=== PATIENT | female | born 1975 | race Caucasian/White ===

== ENCOUNTER → 2018-11-01 | Outpatient (REF) ==
--- NOTE | 2018-11-01 15:23 | REP ---
Clinical: Right knee pain Technique: AP, lateral, bilateral oblique and sunrise views right knee . Findings: The osseous structures and joint spaces are intact and normal. There is no evidence for acute fracture or dislocation. No joint effusion is appreciated. Surrounding soft tissues are unremarkable. No subcutaneous emphysema or radiodense foreign body. Impression: Age-appropriate right knee examination. Electronically Signed by Maurizio Valera MD 11/01/2018 03:15 P
== END ==
LOC: M SMT 14:34
PROVIDERS: ATTEND Internal Medicine
DX: Z00.00 Encounter for general adult medical examination without abnormal findings (principal)

== ENCOUNTER 2018-12-05 14:40 | Inpatient (IN) | payer MEDICARE, MEDICAID ==
[~2018-12-05] VITALS: Ht 160 cm; Wt 68.5 kg
[2018-12-05] MEDS ORDERED: PSEU30TA88 PO (15:09)
[2018-12-05] MEDS ORDERED: GABA-1171 PO (15:09)
[2018-12-05] MEDS ORDERED: ACET-683 PO (15:09)
[2018-12-05] MEDS ORDERED: AZIT-12 PO (15:09)
[2018-12-05] MEDS ORDERED: SENN8.6T28 PO (15:09)
[2018-12-05] MEDS ORDERED: SENN1TAB8 PO (15:09)
[2018-12-05] MEDS ORDERED: SERT-138 PO (15:09)
[2018-12-05] MEDS ORDERED: VITA500C24 PO (15:09)
[2018-12-05] MEDS ORDERED: VENTAER INH (15:09)
[2018-12-05] MEDS ORDERED: PRED10PA2 PO (15:09)
[2018-12-05] MEDS ORDERED: FERR325T3 PO (15:09)
[2018-12-05] MEDS ORDERED: LEVO25TA5 PO (15:09)
[2018-12-05] MEDS ORDERED: OMEP40CA97 PO (15:09)
[2018-12-05] MEDS ORDERED: KETOROLAC 30 MG/ML VIAL (J1885) IV ONE (16:15)
[2018-12-05] MEDS ORDERED: NS 1,000 ML IV ONE (16:15)
[2018-12-05] MEDS ORDERED: ONDANSETRON 4MG/2ML VIAL (J2405) IV ONE (16:15)
--- NOTE | 2018-12-05 16:42 | REP ---
Right upper quadrant sonography: History: Pain. Comparison study: No comparison study. Findings: Scanning through the right upper quadrant of the abdomen demonstrates a normal sized, thin-walled gallbladder containing shadowing large gallstone measuring up to 3 cm in diameter. No pericholecystic fluid is seen. There is some tenderness to scanning over the gallbladder . Common bile duct is normal measuring 0.5 cm in greatest diameter. No focal liver lesion is seen. Liver size is normal. No pancreatic abnormality is observed. No right renal abnormality is seen. There is no evidence of ascites. The right kidney measures 9.7 x 5.0 x 4.1 cm. Impression: Cholelithiasis with tenderness to scanning over the gallbladder. Large gallbladder stone. Otherwise negative right upper quadrant sonography. Electronically Signed by Jamal Geronimo MD 12/05/2018 04:35 P
[2018-12-05 17:27] LABS: HEMATOCRIT 18.2 % (36.0-47.0); MEAN CORPUSCULAR HEMOGLOBIN 42.6 pg (27.0-33.0); MEAN CORPUSCULAR HGB CONC 36.3 g/dl (32.0-36.5); PLATELET COUNT, AUTOMATED 103 10^3/uL (150-450); RED BLOOD COUNT 1.55 10^6/uL (4.00-5.40)
[2018-12-05 17:50] LABS: HCG, SERUM QUALITATIVE NEGATIVE (NEGATIVE)
[2018-12-05 17:53] LABS: ALBUMIN 3.8 GM/DL (3.2-5.2); ALT/SGPT 23 U/L (12-78); BILIRUBIN,DIRECT 0.3 MG/DL (0.0-0.2); BILIRUBIN,TOTAL 3.9 MG/DL (0.2-1.0); BLOOD UREA NITROGEN 8 MG/DL (7-18); CALCIUM LEVEL 8.5 MG/DL (8.5-10.1); CARBON DIOXIDE LEVEL 23 MEQ/L (21-32); CHLORIDE LEVEL 108 MEQ/L (98-107); CREATININE FOR GFR 0.64 MG/DL (0.55-1.30); GLOMERULAR FILTRATION RATE > 60.0 (>58); GLUCOSE, FASTING 103 MG/DL (70-100); LIPASE 95 U/L (73-393); POTASSIUM SERUM 3.8 MEQ/L (3.5-5.1); SODIUM LEVEL 143 MEQ/L (136-145); TOTAL PROTEIN 6.1 GM/DL (6.4-8.2)
[2018-12-05 17:56] LABS: WHITE BLOOD COUNT 1.9 10^3/uL (4.0-10.0)
[2018-12-05 17:57] LABS: HEMOGLOBIN 6.6 g/dl (12.0-15.5)
[2018-12-05 17:59] LABS: MEAN CORPUSCULAR VOLUME 117.4 fl (80.0-96.0)
[2018-12-05 18:19] LABS: LYMPHOCYTES 40 % (16-44); NEUTROPHILS 60 % (28-66)
[2018-12-05 18:20] LABS: ANISOCYTOSIS 1+; PLATELET ESTIMATE DECREASED (NORMAL)
[2018-12-05 18:21] LABS: OVALOCYTES 1+; POIKILOCYTOSIS 1+; TEAR DROP CELLS 1+
[2018-12-05] MEDS ORDERED: ISOVUE-370 76% 100ML VIAL (Q9967) As Ordered ONE (18:21)
[2018-12-05] MEDS ORDERED: MORPHINE 4 MG/ML 1ML VIAL/SYRINGE (J2270) IV ONE (21:15)
[2018-12-05 21:48] LABS: FERRITIN 327 NG/ML (8-252); IRON (FE) 193 UG/DL (50-170); PERCENT SATURATION 94.6 % (13.2-45.0); TOTAL IRON BINDING CAPACITY 204 UG/DL (250-450)
--- NOTE | 2018-12-05 22:43 | HPEPDOC ---
[facility] Medical History & Physical Date of Admission Dec 05, 2018 Date of Service: Dec 05, 2018 Primary Care Physician: A Other Provider Douglas Metz NP Attending Physician: ELIAN BARKER MD History and Physical TIME OF SERVICE: 941PM CHIEF COMPLAINT: Back pain HISTORY OF PRESENT ILLNESS: This is a 43-year-old female who presents with complaints of lower back pain that radiates to her, her feet for few months. Associated symptoms include paresthesias affecting feet, abdominal pain, palpitations, anorexia, shortness of breath, tinnitus affecting the left ear, cough, runny nose, sore throat, 1 episode of nonbloody emesis a few days ago and unintentional 18 pound weight loss. Her family reports that she looks more pale and jaundice than usual. She denies falling, denies having urinary incontinence, denies having fevers or chills, and denies having chest pain. She reports that her menses are heavy and ended about a week ago. Per discussion with the ED provider her WBCs, hemoglobin, and platelets were all low. Due to the complaints of abdominal pain, a CT scan was done which was unremarkable. Stool occult was positive. Type and screen has been done and PRBCs have been ordered. REVIEW OF SYSTEMS: 12 point review of systems negative except as listed in HPI PAST MEDICAL/ SURGICAL HISTORY: Hypothyroidism Rheumatoid arthritis ? (Not on DMARD's report. She was sent to a pain clinic to manage this) Iron deficiency anemia. DJD affecting the lower back. Fibromyalgia. Status post . Status post tonsillectomy and adenoidectomy SOCIAL HISTORY: Does not smoke. Does not drink. Does not use alcohol and has a daughter FAMILY HISTORY: OA. Diabetes Rheumatoid arthritis. Fibromyalgia Denies family history of leukemia or cancers. ALLERGIES: Please see below. HOME MEDICATIONS: Please see below. PHYSICAL EXAMINATION: VITAL SIGNS: Please see below. GENERAL APPEARANCE: Well-nourished, well-developed, slightly anxious HEENT: Normocephalic, atraumatic. Scleral icterus. Mucous membranes are moist and pink. There is no redness or swelling or cerumen impaction affecting the left ear; the light reflex is visible CARDIOVASCULAR: Regular rate and rhythm. No murmurs, rubs or gallops LUNGS: Clear to auscultation bilaterally on room air ABDOMEN: Bowel sounds are hypoactive. Abdomen is soft and nontender on palpation MUSCULOSKELETAL: Range of motion is intact in all 4 extremities is no lower extremity edema INTEGUMENT: She does have jaundice NEUROLOGICAL: Cranial nerves II-12 are grossly intact. Speech is not dysarthric PSYCHIATRIC: Alert and oriented to person, place and time, able to understand and follow commands LABORATORY DATA: See below. IMAGING: CT of the abdomen and pelvis per discussion with the ED provider is unremarkable but final report is pending. Liver ultrasound "Impression: Cholelithiasis with tenderness to scanning over the gallbladder. Large gallbladder stone. Otherwise negative right upper quadrant sonography." ASSESSMENT: Ms. Geronimo is a 43-year-old female with a past medical history of hypothyroidism, DJD, rheumatoid arthritis ?, depression, iron deficiency anemia, and chronic lower back pain who will be admitted for evaluation of pancytopenia. PLAN: 1. Pancytopenia. Cause to be determined. Differential includes parvovirus infection, aplastic anemia, or other bone marrow disorder such as aplastic anemia, MDS leukemia CBC reviewed. Per discussion with the ED provider the stool occult was positive The patient also reports having menorrhagia Plan: Admit to PCU/ f/u on records from [facility] / neutropenic precautions and neutropenic diet pending revision of for full smear by pathologist so we can determine her absolute neutrophil count/ monitor for bleeding / continue blood transfusion/follow up retic #, iron panel, B12, folate, parovirus and serial CBCs/ GI consult for c-scope & Gyne consult / follow up with hematology in the morning to determine if she needs a bone marrow biopsy 3. Abdominal pain. Cause to be determined. Total bilirubin is elevated. Urine test is negative Liver ultrasound showed Plan: Follow-up UA/Tums for indigestion / follow up final report of CT of the abdomen and pelvis 4. Hyperbilirubinemia Possibly due to hemolysis vs Gilbert's Plan: f/u LDH and Haptoglobin / trend LFTS DVT prophylaxis with SCDs. Disposition pending clinical course Vital Signs Vital Signs Date Time Temp Pulse Resp B/P (MAP) Pulse Ox O2 Delivery O2 Flow Rate FiO2 12/05/18 22:25 97.8 71 20 109/56 (73) 100 12/05/18 22:10 Room Air Laboratory Data Labs 24H Laboratory Tests 2 12/05/18 17:14: Nucleated Red Blood Cells % (auto) 0.0, Neutrophils 60, Lymphocytes (Manual) 40, Poikilocytosis 1+, Anisocytosis 1+, Macrocytosis 2+, Tear Drop Cells 1+, Ovalocytes 1+, Platelet Estimate DECREASED, Anion Gap 12, Glomerular Filtration Rate > 60.0, Blood Urea Nitrogen 8, Creatinine 0.64, Sodium Level 143, Potassium Level 3.8, Chloride Level 108H, Carbon Dioxide Level 23, Calcium Level 8.5, Aspartate Amino Transf (AST/SGOT) 25, Alanine Aminotransferase (ALT/SGPT) 23, Alkaline Phosphatase 50, Total Bilirubin 3.9H, Direct Bilirubin 0.3H, Total Protein 6.1L, Albumin 3.8, Iron Level 193H, Total Iron Binding Capacity 204L, Transferrin % Saturation 94.6H, Ferritin 327H, Albumin/Globulin Ratio 1.65, Lipase 95, Human Chorionic Gonadotropin, Qual NEGATIVE CBC/BMP Laboratory Tests 12/05/18 17:14 Red Blood Count 1.55 L, Mean Corpuscular Volume 117.4 H, Mean Corpuscular Hemoglobin 42.6 H, Mean Corpuscular Hemoglobin Concent 36.3, Red Cell Distribution Width 17.2 H, Calcium Level 8.5, Aspartate Amino Transf (AST/SGOT) 25, Alanine Aminotransferase (ALT/SGPT) 23, Alkaline Phosphatase 50, Total Bilirubin 3.9 H, Direct Bilirubin 0.3 H, Total Protein 6.1 L, Albumin 3.8 Home Medications Scheduled Acetaminophen (Acetaminophen) 500 Mg Tablet, 500 MG PO BID Ascorbic Acid (Vitamin C) 500 Mg Capsule, 500 MG PO BID Azithromycin (Azithromycin) 250 Mg Tablet, 250 MG PO ASDIRECTED PATIENT STATES SHE HAS ONE MORE DAY ON THIS MEDICATION Ferrous Sulfate (Ferrous Sulfate) 325 Mg Tablet.dr, 325 MG PO DAILY Gabapentin (Gabapentin) 100 Mg Capsule, 100 MG PO DAILY Levothyroxine Sodium (Levothyroxine Sodium) 25 Mcg Tablet, 25 MCG PO DAILY Omeprazole (Omeprazole) 40 Mg Capsule.dr, 40 MG PO DAILY Prednisone (Prednisone) 10 Mg Tab.ds.pk, 10 MG PO ASDIRECTED PATIENT STATES SHE HAS ONE OR TWO DAYS LEFT FOR THIS MEDICAION Sertraline HCl (Sertraline HCl) 100 Mg Tablet, 100 MG PO BID Scheduled PRN Albuterol Sulfate (Ventolin Hfa) 18 Gm Hfa.aer.ad, 2 PUFF INH Q4-6HP PRN for wheezing Pseudoephedrine HCl (Pseudoephedrine HCl) 30 Mg Tablet, 30 MG PO QID PRN for CONGESTION Sennosides (Senna) 8.6 Mg Tablet, 17.2 MG PO QHS PRN for CONSTIPATION Allergies Coded Allergies: Penicillins (Verified Allergy, Intermediate, hives, 12/05/18) A-FIB/CHADSVASC A-FIB History Current/History of A-Fib/PAF?: No Current PO Anticoag Therapy: No ELIAN BARKER MD Dec 05, 2018 22:43
[2018-12-05] MEDS ORDERED: CALCIUM CARBONATE 500 MG CHEW U/D PO PRN (22:45)
[2018-12-05 23:25] VITALS: BP 131/62
[2018-12-06] MEDS: ACETAMINOPHEN TAB 650MG DOSE (2X325MG) PO PRN ×3 (00:09→13:27)
[2018-12-06 00:25] VITALS: BP 130/61
--- NOTE | 2018-12-06 00:53 | ECGEPIP ---
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
[2018-12-06] MEDS ORDERED: ALBUTEROL 90 MCG/ACT 8GM HFA INHALER INH PRN (01:15)
[2018-12-06] MEDS ORDERED: SENNA 8.6 MG TAB (SENOKOT) PO PRN (01:15)
[2018-12-06] MEDS: SERTRALINE 100 MG TAB PO SCH ×3 (01:44→21:16)
[2018-12-06] MEDS: ASCORBIC ACID 500 MG TAB PO SCH ×3 (01:45→21:16)
[2018-12-06 03:01] LABS: LDH LACTATE DEHYDROGENASE 680 U/L (84-246)
[2018-12-06 04:00] VITALS: BP 138/70
[2018-12-06] MEDS: LEVOTHYROXINE 25MCG TABLET (0.025MG) PO SCH (05:04)
[2018-12-06 06:00] LABS: HEMOGLOBIN 8.6 g/dl (12.0-15.5); MEAN CORPUSCULAR HEMOGLOBIN 39.1 pg (27.0-33.0); MEAN CORPUSCULAR HGB CONC 35.8 g/dl (32.0-36.5); MEAN CORPUSCULAR VOLUME 109.1 fl (80.0-96.0); WHITE BLOOD COUNT 2.9 10^3/uL (4.0-10.0)
[2018-12-06 06:18] LABS: ALBUMIN 3.5 GM/DL (3.2-5.2); ALT/SGPT 21 U/L (12-78); BLOOD UREA NITROGEN 8 MG/DL (7-18); CALCIUM LEVEL 8.3 MG/DL (8.5-10.1); CARBON DIOXIDE LEVEL 24 MEQ/L (21-32); CHLORIDE LEVEL 110 MEQ/L (98-107); CREATININE FOR GFR 0.72 MG/DL (0.55-1.30); GLOMERULAR FILTRATION RATE > 60.0 (>58); GLUCOSE, FASTING 76 MG/DL (70-100); MAGNESIUM LEVEL 1.8 MG/DL (1.8-2.4); POTASSIUM SERUM 3.5 MEQ/L (3.5-5.1); SODIUM LEVEL 141 MEQ/L (136-145); TOTAL PROTEIN 5.9 GM/DL (6.4-8.2)
[2018-12-06 06:40] LABS: PLATELET COUNT, AUTOMATED 91 10^3/uL (150-450)
[2018-12-06 07:45] VITALS: BP 152/88
[2018-12-06] MEDS: OMEPRAZOLE 20 MG CAP PO SCH (08:03)
[2018-12-06] MEDS ORDERED: FERROUS SULFATE 325MG TAB PO SCH (09:00)
[2018-12-06] MEDS ORDERED: GABAPENTIN 100 MG CAP PO SCH (09:00)
[2018-12-06] MEDS: MIRALAX *UNIT DOSE* 17GM PACKET PO SCH (09:00)
[2018-12-06 11:30] VITALS: BP 137/81
[2018-12-06 11:32] LABS: FOLATE 17.8 NG/ML (>5.4); VITAMIN B12 LEVEL 55 PG/ML (247-911)
[2018-12-06 12:12] LABS: FOLATE 17.2 NG/ML (>5.4)
--- NOTE | 2018-12-06 12:57 | CR ---
DATE OF CONSULTATION: 12/06/2018 HISTORY OF PRESENT ILLNESS: 43-year-old female who presents with multiple complaints including lower back pain. She has numbness and tingling affecting her feet. She has a midline right sided abdominal pain as well as shortness of breath and ringing in her ears. She had one episode of vomiting and unintentional 18 pound weight loss. Her periods have been heavy for the last three months. Bleeding is bright red and profuse. She denies passing blood clots. Before this, her periods were regular and normal. Her periods are not too painful. MEDICAL HISTORY: 1. Hypothyroidism. 2. Rheumatoid arthritis. 3. Iron deficiency anemia. 4. Degenerative disk disease in her lower back. 5. Fibromyalgia. SURGICAL HISTORY: 1. . 2. Tonsillectomy and adenoidectomy. SOCIAL HISTORY: Denies cigarettes, alcohol or drug use. She is . She has one daughter. She lives in [place]. FAMILY HISTORY: Noncontributory. ALLERGIES: - PENICILLIN MEDICATIONS: - Tylenol - Vitamin C - azithromycin - iron sulfate - gabapentin - levothyroxine - omeprazole - prednisone - Sertraline PHYSICAL EXAMINATION: Blood pressure 137/81. Pulse 61. Respiratory rate 18. Afebrile. Pale appearing female in no apparent distress. Head and Neck Exam: Normal. Lungs: Clear. Heart: Regular rate and rhythm. Abdomen: Nontender. Soft. Nondistended. No masses palpable. Extremities: Nontender. Neurologic: Cranial nerves II-XII intact. LABS: White blood count 1.9, hemoglobin 6.6 g/dl, platelets 103. CT scan shows dilated gallbladder with large gallstone, otherwise normal. ASSESSMENT: 43-year-old female with pancytopenia associated with heavy menses for the last three months. PLAN: For now, plan to observe and transfuse as necessary. The patient's blood loss may be from several sources, including menstrual bleeding. I suspect menorrhagia may be in part related to her pancytopenia. Once this is corrected, her periods may return to normal. 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 Will continue to follow during hospitalization.
--- NOTE | 2018-12-06 13:41 | REP ---
CT of the abdomen and pelvis with IV contrast, without bowel contrast: Comparisons are the outside CT of the abdomen pelvis without IV and oral contrast P and 12/05/2018 at 10:54 a.m. and of the gallbladder ultrasound of 12/05 2018 at 04:22 p.m.. The study is performed for abdominal pain. The visualized lung peter are unremarkable. The hepatic parenchyma is homogeneous and slightly less dense than the spleen. This may represent hepato steatosis. There are no hepatic masses or cysts. There is a large ring-shaped gallbladder calculus in the dependent portion of the gallbladder fundus measuring up to 2.7 cm greatest diameter. There is no gallbladder wall thickening or pericholecystic fluid that would suggest acute cholecystitis. There is no intrahepatic or extrahepatic biliary duct dilatation. The pancreas, spleen, adrenals, kidneys and abdominal aorta are unremarkable. There is no periaortic adenopathy or mass. There is no bowel distension or obstruction. There is no bowel wall thickening. The mesentery is unremarkable. There is no ascites. Pelvis: The appendix is unremarkable. The uterus and bladder are unremarkable. There is a 14 mm right adnexal follicle. The adnexa are otherwise unremarkable. There is no free pelvic fluid. There is no pelvic adenopathy. The pelvic bowel loops are unremarkable. Impression: Gallbladder calculus. No CT evidence of acute cholecystitis. No biliary duct dilatation. No ascites or adenopathy. No bowel distension or obstruction. There is a right ovarian 14 mm follicle. Otherwise, negative CT of the abdomen and pelvis. Electronically Signed by Taiwo Alcantara MD 12/06/2018 01:32 P
--- NOTE | 2018-12-06 14:00 | CR ---
DATE OF CONSULTATION: 12/05/2018 HEMATOLOGY/ONCOLOGY CONSULTATION: This is a very pleasant 43-year-old white female, who has been admitted for pancytopenia. The patient relates that for several days that she had been going to [facility] with a chief complaint of weakness, fatigue, lethargy nonspecific with occasional right upper quadrant pain. The patient had thought that it was her gallbladder but there was no postprandial fullness nor was there any early satiety that was associated with these symptoms. No fever or sweats. The patient had related that she had occasional numbness and tingling with her lower feet, abdominal pain, palpitations. She has had some anorexia, ringing in her ears and she has had about a 20 pound weight loss that she has not been explained. Her family has been advising her that she looks a little pale and that she appears to have some more jaundice. The patient's past medical history includes hypothyroidism, rheumatoid arthritis, iron deficiency, DJD, fibromyalgia. She has been 3, para 3 with one . She is status post tonsillectomy and adenoidectomy. SOCIAL HISTORY: Nonsmoker, nondrinker. Negative for alcohol. FAMILY HISTORY: She has two sisters who are in good health the exception of one who has diabetes. ALLERGIES: She has an allergy to PENICILLIN, which can cause her a rash. MEDICATIONS: - acetaminophen 500 mg p.o. b.i.d. - albuterol 2 puffs q.4-6 h p.r.n. - ascorbic acid 500 mg p.o. b.i.d. - ferrous sulfate 325 mg p.o. daily - gabapentin 100 mg p.o. daily - levothyroxine 25 mcg p.o. daily - omeprazole 40 mg p.o. daily - Senna 17 mg p.o. q.h.s. p.r.n. - sertraline hydrochlorothiazide 100 mg p.o. b.i.d. REVIEW OF SYSTEMS: She has no visual disturbances. No problems swallowing. Taste is intact. Occasional tinnitus or ringing in the ears. Neck is otherwise supple. Denies any history of any chest pain, palpitations, nausea, vomiting, diarrhea. No known history of any heartburn. She has been on levothyroxine 25 mcg p.o. daily without any problems. PHYSICAL EXAMINATION: The patient is markedly jaundiced. Her temperature is 97.6, pulse is 61, respiratory rate is 18, BP is 137/81, pulse oximetry is 100. HEENT: Sclerae is icteric. Oropharynx is clear. Neck is supple. Chest is otherwise decreased breath sounds at the bases. Cardiovascular: S1 and S2 are appreciated with no murmurs. Her abdomen is otherwise soft, nontender. No hepatosplenomegaly. Positive for abdominal striae. Extremities show no cyanosis, no clubbing or any edema. LABORATORIES: Her sodium is 141, potassium 3.5, chloride is 91. Her GFR is 60. Calcium is 8.3. Serum iron is 193, TIBC 204, iron transferrin saturation is 94, ferritin is 326. Total bilirubin is now 5, up from 3.9. Direct bili is 0.3. AST of 22, ALT of 21, alkaline phosphatase of 50. LDH is 680. Total protein is 5.9. Lipase is 95. Vitamin B12 level is 55. Folate is 17. Beta hCG is negative. On the patient's pathology, on her peripheral smear shows pancytopenia, macrocytosis, anisocytosis and mild poikilocytosis. There are no nucleated red blood cells or blasts that are seen. Review of the peripheral smear shows many multi-segmented neutrophils with up to 8 lobes in some cells Many with 5-6 lobes ( hypersegmented neutrophils ) Lymphocytes are small few atypical The patient has hepatitis A, B and C studies that are pending as well as parvovirus B19 pending. The patient's reticulocyte count is about 2.6. WBC today is 2.9, hemoglobin and hematocrit is 8.6 /24, MCV is 109, RDW is 22.1, platelets are 91,000, reticulocytes again 55 absolute count. Neutrophils are 60, lymphocytes are 40. On the patient's Malcom test, the direct Malcom test is negative, direct antibody is negative. ASSESSMENT: At this time is a patient with jaundice, low vitamin B12 and high LDH level with negative C3 MAME testing with atypical lymphs and smear. PLAN: 1. The patient has a non-autoimmune hemolytic anemia. Differential diagnosis can include vitamin B12 deficiency primarily 2. Atypical HUS. 3. A hemoglobin spectrum ankyrin deficiency, hereditary elliptocytosis. Plan is 1 give 1000 mcg of Vitamin B12 IM daily x 13 days 2. Also, the patient will need an EGD as well 3 intrinsic factor antibody. 4 Rigorous supplementation with folic acid is recommended at, at least 2 mg a day. 5. monitor the potassium level daily as a brisk response with B 12 replacement may render the patient profoundly hypokalemic. 6. Give the Vitamin B12 IM before folic acid replacement MTDD
--- NOTE | 2018-12-06 15:06 | IPNPDOC ---
Subjective Date Seen The patient was seen on 12/06/18. Subjective Chief Complaint/HPI Patient complains of right gluteal pain which goes down her back of the thigh shock like and has been having trouble walking for the past 1 month has been using a walker. Complains of chronic constipation. also complains of right upper quadrant pain in the abdomen. Objective Physical Examination General Exam: Positive: Alert, Cooperative, No Acute Distress Eye Exam: Positive: PERRLA, Conjunctiva & lids normal, EOMI, Sclera icteric ENT Exam: Positive: Atraumatic, Mucous membr. moist/pink, Pharynx Normal Neck Exam: Positive: Supple; Negative: JVD, thyromegaly Chest Exam: Positive: Clear to auscultation, Normal air movement Heart Exam: Positive: Rate Normal, Regular Rhythm, Normal S1, Normal S2; Negative: Murmurs, Rubs Telemetry: Positive: No significant arrhythmia Abdomen Exam: Positive: Normal bowel sounds, Soft, Tenderness (in the right upper quadrant); Negative: Hepatospenomegaly Extremity Exam: Positive: Normal pulses; Negative: Clubbing, Cyanosis, Edema Neuro Exam: Positive: Strength at 5/5 X4 ext, Normal Tone, Cranial Nerves 3-12 NL, Other (reflexes in all 4 limbs are hyperactive 3+) Psych Exam: Positive: Mental status NL, Mood NL, Oriented x 3 Assessment /Plan Assessment Ms. Geronimo is a 43-year-old female with a past medical history of hypothyroidism, DJD, rheumatoid arthritis ?, depression, iron deficiency anemia, and chronic lower back pain presented to the ED with worsening low back pain and multiple other complaints including paresthesias affecting feet, abdominal pain, palpitations, anorexia, shortness of breath, tinnitus affecting the left ear, cough, runny nose, sore throat, 1 episode of nonbloody emesis a few days ago and unintentional 18 pound weight loss. She was found to be pancytopenic. Stool occult was positive. She was admitted for evaluation of pancytopenia. Pancytopenia. has severe Vit B12 deficiency which could explain this Work up for parvovirus infection, and hepatitis serology ordered. CBC reviewed. Peripheral smear reviewed by pathologist says looks like Vit B12 deficiency. The patient also reports having menorrhagia this could be due to pancytopenia as per privacy compliance manager neutropenic precautions and neutropenic diet blood transfusion prn /follow up retic #, LDH daily. Intrinsic factor ordered. There is no iron deficiency. GI consulted for EGD and colonoscopy possibly later this week. IM cyanocobalamin daily for 13 days, folic acid 2 mg daily. Lumber radiculopathy will get MRI of lumber spine and right hip, consulted ortho gabapentin tid Abdominal pain. may be liver related. has gall stone single one no CT evidence of acute cholecystitis. GB ultrasound showed Cholelithiasis with tenderness to scanning over the gallbladder. Large gallbladder stone. symptomatic management. Indirect Hyperbilirubinemia with elevation of LDH, haptoglobin pending. due to vit b 12 deficiency follow up LFTS. Hypothyroid continue Synthroid DVT prophylaxis with SCDs. Disposition pending clinical course Plan/VTE VTE Prophylaxis Ordered?: Yes VS, I&O, 24H, Fishbone Vital Signs/I&O Vital Signs Date Time Temp Pulse Resp B/P (MAP) Pulse Ox O2 Delivery O2 Flow Rate FiO2 12/06/18 07:45 99.1 64 20 152/88 (109) 100 12/05/18 22:10 Room Air I&O- Last 24 Hours up to 6 AM 12/06/18 05:59 Intake Total 565 ml Output Total 0 ml Balance 565 ml Laboratory Data 24H LABS Laboratory Tests 2 12/05/18 17:14: Nucleated Red Blood Cells % (auto) 0.0, Neutrophils 60, Lymphocytes (Manual) 40, Poikilocytosis 1+, Anisocytosis 1+, Macrocytosis 2+, Tear Drop Cells 1+, Ovalocytes 1+, Platelet Estimate DECREASED, Anion Gap 12, Glomerular Filtration Rate > 60.0, Blood Urea Nitrogen 8, Creatinine 0.64, Sodium Level 143, Potassium Level 3.8, Chloride Level 108H, Carbon Dioxide Level 23, Calcium Level 8.5, Aspartate Amino Transf (AST/SGOT) 25, Alanine Aminotransferase (ALT/SGPT) 23, Lactate Dehydrogenase 680H, Alkaline Phosphatase 50, Total Bilirubin 3.9H, Direct Bilirubin 0.3H, Total Protein 6.1L, Albumin 3.8, Iron Level 193H, Total Iron Binding Capacity 204L, Transferrin % Saturation 94.6H, Ferritin 327H, Albumin/Globulin Ratio 1.65, Lipase 95, Human Chorionic Gonadotropin, Qual NEG ATIVE 12/06/18 05:26: Nucleated Red Blood Cells % (auto) 0.0, Anion Gap 7L, Glomerular Filtration Rate > 60.0, Blood Urea Nitrogen 8, Creatinine 0.72, Sodium Level 141, Potassium Level 3.5, Chloride Level 110H, Carbon Dioxide Level 24, Calcium Level 8.3L, Aspartate Amino Transf (AST/SGOT) 22, Alanine Aminotransferase (ALT/SGPT) 21, Alkaline Phosphatase 50, Total Bilirubin 5.0H, Total Protein 5.9L, Albumin 3.5, Albumin/Globulin Ratio 1.46, Differential Slide Review Report, Immature Platelet Fraction 2.5, Peripheral Blood Smear Path Consult PERIPHERAL SMEAR, Magnesium Level 1.8 CBC/BMP Laboratory Tests 12/05/18 17:14 Red Blood Count 1.55 L, Mean Corpuscular Volume 117.4 H, Mean Corpuscular Hemoglobin 42.6 H, Mean Corpuscular Hemoglobin Concent 36.3, Red Cell Distribution Width 17.2 H, Calcium Level 8.5, Aspartate Amino Transf (AST/SGOT) 25, Alanine Aminotransferase (ALT/SGPT) 23, Lactate Dehydrogenase 680 H, Alkaline Phosphatase 50, Total Bilirubin 3.9 H, Direct Bilirubin 0.3 H, Total Protein 6.1 L, Albumin 3.8 12/06/18 05:26 Red Blood Count 2.20 L, Mean Corpuscular Volume 109.1 H, Mean Corpuscular Hemoglobin 39.1 H, Mean Corpuscular Hemoglobin Concent 35.8, Red Cell Distribution Width 22.1 H, Calcium Level 8.3 L, Aspartate Amino Transf (AST/SGOT) 22, Alanine Aminotransferase (ALT/SGPT) 21, Alkaline Phosphatase 50, Total Bilirubin 5.0 H, Total Protein 5.9 L, Albumin 3.5 DWAINE SHAW MD Dec 06, 2018 08:08
[2018-12-06] MEDS: FOLIC ACID 1 MG TAB PO SCH (15:42)
[2018-12-06] MEDS: GABAPENTIN 100 MG CAP PO SCH ×2 (15:43→21:16)
[2018-12-06] MEDS: CYANOCOBALAMIN 1,000 MCG/ML VIAL (J3420) IM SCH (15:43)
--- NOTE | 2018-12-06 16:18 | CR ---
DATE OF CONSULTATION: 12/06/2018 INDICATION: Right leg sciatica. HISTORY OF PRESENT ILLNESS: Filomena Geronimo is a 43-year-old female with history of right-sided sciatica. She has done physical therapy in the past. Never had any cortisone shots. She was started prednisone about a week ago. She does state that a herniated disc in her lower back was diagnosed "with an x-ray." She has not had an MRI of her lower back before. When asked about numbness or tingling in her foot she says that she always has that and does not seem any worse than normal. Her pain is in her buttock just posterior to the greater trochanter. She denies any groin pain. For the patient's full past medical history, past surgical history, medications, allergies, social history and review of systems please see the admitting history and physical (H and P) from the hospitalist, which I personally reviewed. PHYSICAL EXAM: Reveals a female in no distress. She is alert and times three. She answers questions appropriately. She is pleasant to talk to. Cardiovascular: 2+ DP pulse, nonlabored breathing. Musculoskeletal: Patient is entirely nontender at the greater trochanter. She has no groin pain with internal or external rotation of the hip or with log roll. No hip pain with axial load. She has 5/5 strength EHL, FHL, TA and GS. Sensation to light touch L3-S1 was intact. She is significant tense to palpation over the sciatic nerve on the right leg. CAT scan the abdomen was negative. She has pancytopenia of unknown etiology. ASSESSMENT AND PLAN: Filomena is a 43-year-old female with right-sided sciatica symptoms with a possible history of a low back disk herniation. Likely has sciatic nerve irritation from multiple points, which could include a disc herniation in her lower back, as well as soft tissue compression and then in the setting of a severe vitamin B12 deficiency making all the symptoms worse. At this point, my recommendations would be to get the patient on gabapentin and I did mention to the hospitalist possibly using prednisone. They will have to discuss with the host/hostess any implications for that given her white blood cell count being significantly low. There is really no indication for any cortisone shots. I am recommending an MRI of the lumbar spine to rule out a lumbar disc herniation, muscle groin. I am recommended MRI of the right hip. Given that she is profoundly anemic and has low platelets, she could have a hematoma causing pressure on the nerve. So, we will followup on those MRIs. In the meantime, will be supportive care. She can weight-bear as tolerated. She can use cane, crutch or walker if needed. I will recommend a physical therapy consult. Any updated recommendations will follow the MRIs. She will remain under the care of the hospitalist.
[2018-12-06 17:40] LABS: BASO % 0.4 % (0.0-1.0); EOS % 0.9 % (0.0-3.0); HEMATOCRIT 23.2 % (36.0-47.0); HEMOGLOBIN 8.5 g/dl (12.0-15.5); LYMPH # 1.1 10^3/uL (1.5-5.0); MEAN CORPUSCULAR HEMOGLOBIN 39.7 pg (27.0-33.0); MEAN CORPUSCULAR HGB CONC 36.6 g/dl (32.0-36.5); MEAN CORPUSCULAR VOLUME 108.4 fl (80.0-96.0); MONO # 0.1 10^3/uL (0.0-0.8); MONO % 2.2 % (0.0-5.0); NEUTROPHILS # 1.1 10^3/uL (1.5-8.5); NEUTROPHILS % 48.1 % (36.0-66.0); PLATELET COUNT, AUTOMATED 89 10^3/uL (150-450); RED BLOOD COUNT 2.14 10^6/uL (4.00-5.40); WHITE BLOOD COUNT 2.2 10^3/uL (4.0-10.0)
--- NOTE | 2018-12-06 18:12 | CR.PDOC ---
General Date of Consultation: Dec 06, 2018 Referring Provider: DWAINE GILLIAM MD Attending Physician: JILL VARELA MD Consultation Primary physician/ hospitalist: Dr. Gilliam Reason for consult: Vitamin B12 deficiency and anemia HPI: 43-year-old female patient with fibromyalgia, hypothyroidism, low back pain, suspected rheumatoid arthritis, was admitted to the hospital for lower back pain and not feeling well. Patient was noted to have pancytopenia with vitamin B12 deficiency and GI was consulted for further evaluation. Patient is not cooperative with providing detailed history and easily gets upset when asking questions. Patient reports for the past few weeks she is "just not feeling we ll", and has visited multiple different hospital ERs. She reports being told about gallstones and she is worried about "gallstone related sepsis". In terms of GI symptoms, on specific questioning, she reports having right upper quadrant abdominal pain, [id number] in intensity, nonradiating, no aggravating and relieving factors, and not associated with food intake. She also reports having sciatica from back issues, and has been taking Tylenol and Aleve regularly for the past couple of weeks. She reports previously being told about iron deficiency anemia, and has been on iron supplements which causes her to have constipation. Patient denies any recent change in bowel habits, no blood in the bowel movements but reports her menstrual bleeding usually lasts 7 days per cycle and it has been like that for a long time. Patient denies any unintentional weight loss but has around 7-8 pound intentional weight loss. She also reports tingling and numbness in the right foot and denies any imbalance while walking. Pertinent negative GI symptoms: Patient denies nausea, vomiting, diarrhea, loss of appetite, early satiety or unintentional weight loss. No history of hematemesis, melena or hematochezia. Review of Systems: GI: as stated above CVS: No chest pain, No palpitations, No leg swelling. RS: No Shortness of breath, No Wheezing, no cough CAMPUS SECURITY OFFICER: No dizziness, No motor weakness, Hematology: No bruising, No gum bleeding, Musculoskeletal: Chronic low back pain, ambulating well. Skin: No rash : No hematuria, No burning sensation of the urine ENT: No ear discharge/ pain, No dysphagia. Eyes: No photophobia. Home medications: reviewed. Antithrombotic agents -none Medical h/o: As above. Surgical h/o: None on abdomen. Social h/o: Alcohol-denies, tobacco-denies, IVDA/ drugs-denies. Patient is not a vegan, and eats meat up to 3 times a week. Family h/o of GI cancers -none Prior Endoscopies: None Prior GI evaluation: None Exam: Vitals: reviewed General: Alert and oriented x 3, not in distress HEENT: Conjunctival pallor, no icterus. Normal oropharynx, NO cervical lymph nodes. Chest: symmetric with bilateral clear air entry, CVS: S1, S2 heard, normal, no murmurs . Abdomen: non-distended, no surgical scars, soft, non-tender, no palpable masses, normal bowel sounds heard. Rectal exam: Patient refused/ deferred. Extremities: no pedal edema, pulses palpable. CAMPUS SECURITY OFFICER: no focal motor deficits. Moves all extremities. Skin: no rash. Labs: reviewed. Slightly elevated unconjugated bilirubin. Imaging tests: reviewed Noted large gallstone, normal CBD in ultrasound abdomen and CT abdomen. Impression: - 43-year-old female patient with malaise, right upper quadrant pain, noted with severe pancytopenia and vitamin B12 deficiency, Not vegan, -- Need to rule out pernicious anemia. Other differentials include - rule out GI lymphoma. -- Mild right upper quadrant pain with gallstones but normal CBD on ultrasound and CT abdomen, with elevated unconjugated bilirubin-- likely from symptomatic gallstone disease, unlikely biliary obstruction. Unconjugated bilirubin is elevated in ineffective erythropoiesis as a result of vitamin B12 deficiency. Recommendations: - Patient educated about the test results, possible differential diagnoses and All questions answered. - Obtain intrinsic factor antibody, antiparietal cell antibodies. - Consider parenteral replacement of vitamin B12 and follow hematology recommendations for further evaluation. - Patient is recommended EGD, with biopsies to rule out H. pylori and colonoscopy for further evaluation after initial stabilization. - The procedures, indications, risks, benefits, limitations (e.g., missing a lesion), and all other alternatives were explained to the patient. Patient refused to undergo the endoscopy procedures here and wanted to schedule them in [facility]. Patient is explained the process of doing that which includes being referred from her PCP to that hospital endoscopy team and can include significant delay in scheduling the procedures. Patient verbalized understanding and still wants to schedule there. Patient is not to receptive to treatment plan options here and gets upset with explanations. - She reports after getting vitamin B 12 injections, she wants to be discharged as soon as possible. - Patient is alert and oriented and her behavior is confirmed by the nurse to be the same since hospitalization. - Elective referral to surgery for therapy for symptomatic gallstones. - Recall GI if any change in status. Plan of care discussed with patient and primary team. Patient verbalized understanding and agreed with the plan. Vital Signs/I&O Vital Signs Date Time Temp Pulse Resp B/P (MAP) Pulse Ox O2 Delivery O2 Flow Rate FiO2 12/06/18 11:30 97.6 61 18 137/81 (99) 100 12/05/18 22:10 Room Air I&O- Last 24 Hours up to 6 AM 12/06/18 05:59 Intake Total 565 ml Output Total 0 ml Balance 565 ml Laboratory Data CBC/BMP Laboratory Tests 12/06/18 05:26 Red Blood Count 2.20 L, Mean Corpuscular Volume 109.1 H, Mean Corpuscular Hemoglobin 39.1 H, Mean Corpuscular Hemoglobin Concent 35.8, Red Cell Distribution Width 22.1 H, Calcium Level 8.3 L, Aspartate Amino Transf (AST/SGOT) 22, Alanine Aminotransferase (ALT/SGPT) 21, Alkaline Phosphatase 50, Total Bilirubin 5.0 H, Total Protein 5.9 L, Albumin 3.5 12/06/18 16:38 Red Blood Count 2.14 L, Mean Corpuscular Volume 108.4 H, Mean Corpuscular Hemoglobin 39.7 H, Mean Corpuscular Hemoglobin Concent 36.6 H, Red Cell Distri bution Width 22.2 H, Neutrophils (%) (Auto) 48.1, Lymphocytes (%) (Auto) 48.0 H, Monocytes (%) (Auto) 2.2, Eosinophils (%) (Auto) 0.9, Basophils (%) (Auto) 0.4, Neutrophils # (Auto) 1.1 L, Lymphocytes # (Auto) 1.1 L, Monocytes # (Auto) 0.1, Eosinophils # (Auto) 0.0, Basophils # (Auto) 0.0 Allergies Coded Allergies: Penicillins (Verified Allergy, Intermediate, hives, 12/05/18) Home Medications Scheduled Acetaminophen (Acetaminophen) 500 Mg Tablet, 500 MG PO BID, (Reported) Ascorbic Acid (Vitamin C) 500 Mg Capsule, 500 MG PO BID, (Reported) Azithromycin (Azithromycin) 250 Mg Tablet, 250 MG PO ASDIRECTED for 5 Days, (Reported) PATIENT STATES SHE HAS ONE MORE DAY ON THIS MEDICATION Ferrous Sulfate (Ferrous Sulfate) 325 Mg Tablet.dr, 325 MG PO DAILY, (Reported) Gabapentin (Gabapentin) 100 Mg Capsule, 100 MG PO DAILY, (Reported) Levothyroxine Sodium (Levothyroxine Sodium) 25 Mcg Tablet, 25 MCG PO DAILY, (Reported) Omeprazole (Omeprazole) 40 Mg Capsule.dr, 40 MG PO DAILY, (Reported) Prednisone (Prednisone) 10 Mg Tab.ds.pk, 10 MG PO ASDIRECTED, (Reported) PATIENT STATES SHE HAS ONE OR TWO DAYS LEFT FOR THIS MEDICAION Sertraline HCl (Sertraline HCl) 100 Mg Tablet, 100 MG PO BID, (Reported) Scheduled PRN Albuterol Sulfate (Ventolin Hfa) 18 Gm Hfa.aer.ad, 2 PUFF INH Q4-6HP PRN for wheezing, (Reported) Pseudoephedrine HCl (Pseudoephedrine HCl) 30 Mg Tablet, 30 MG PO QID PRN for CONGESTION, (Reported) Sennosides (Senna) 8.6 Mg Tablet, 17.2 MG PO QHS PRN for CONSTIPATION, (Reported) JILL VARELA MD Dec 06, 2018 18:12
[2018-12-06 20:00] VITALS: BP 145/76
[2018-12-06] MEDS ORDERED: ACETAMINOPHEN TAB 650MG DOSE (2X325MG) PO PRN (21:00)
[2018-12-06] MEDS: SENOKOT S TAB PO SCH (21:16)
[2018-12-06 21:31] LABS: ACETAMINOPHEN LEVEL < 2.0 UG/ML (10.0-30.0)
[2018-12-06] MEDS: ACETAMINOPHEN 500 MG TAB PO PRN (22:24)
[2018-12-06 22:30] VITALS: BP 141/83
[2018-12-07] MEDS: LEVOTHYROXINE 25MCG TABLET (0.025MG) PO SCH (05:28)
[2018-12-07 06:00] VITALS: BP 147/85
[2018-12-07 06:01] LABS: EOS % 0.4 % (0.0-3.0); HEMATOCRIT 24.2 % (36.0-47.0); HEMOGLOBIN 8.9 g/dl (12.0-15.5); LYMPH # 1.2 10^3/uL (1.5-5.0); LYMPH % 46.1 % (24.0-44.0); MEAN CORPUSCULAR HEMOGLOBIN 38.7 pg (27.0-33.0); MEAN CORPUSCULAR HGB CONC 36.8 g/dl (32.0-36.5); MEAN CORPUSCULAR VOLUME 105.2 fl (80.0-96.0); MONO # 0.1 10^3/uL (0.0-0.8); MONO % 2.2 % (0.0-5.0); NEUTROPHILS # 1.4 10^3/uL (1.5-8.5); NEUTROPHILS % 50.9 % (36.0-66.0); PLATELET COUNT, AUTOMATED 114 10^3/uL (150-450); WHITE BLOOD COUNT 2.7 10^3/uL (4.0-10.0)
[2018-12-07 06:24] LABS: ALT/SGPT 24 U/L (12-78); BLOOD UREA NITROGEN 7 MG/DL (7-18); CALCIUM LEVEL 8.2 MG/DL (8.5-10.1); CARBON DIOXIDE LEVEL 25 MEQ/L (21-32); CHLORIDE LEVEL 109 MEQ/L (98-107); CREATININE FOR GFR 0.71 MG/DL (0.55-1.30); GLOMERULAR FILTRATION RATE > 60.0 (>58); GLUCOSE, FASTING 89 MG/DL (70-100); LDH LACTATE DEHYDROGENASE 743 U/L (84-246); POTASSIUM SERUM 3.2 MEQ/L (3.5-5.1); SODIUM LEVEL 141 MEQ/L (136-145)
[2018-12-07 06:25] LABS: ALBUMIN 3.7 GM/DL (3.2-5.2); BILIRUBIN,TOTAL 4.6 MG/DL (0.2-1.0)
--- NOTE | 2018-12-07 08:23 | IPNPDOC ---
Date Seen The patient was seen on 12/07/18. Progress Note SUBJECTIVE: Patient is a 43-year-old female seen now with a diagnosis of Vitamin B12 deficiency . " I feel like I am burning up " . Patient remains with right sided hip and lateral thigh pain . no pain in the foot no numbness in the left foot noted no numbness in her hands jaundice remains no deepening. OBJECTIVE PHYSICAL EXAMINATION: VITAL SIGNS: Please see below. GENERAL: nc at perrl eomi sclera white non icteric HEENT: sclera clear ] CARDIOVASCULAR: [s1 and S2 appreciated . RESPIRATORY: [ no SOB ]. ABDOMINAL: [no HSM EXTREMITIES: [no cce ] NEUROLOGICAL: able to flex and extend both feet and move legs bilaterally PSYCHOLOGICAL: LABORATORY DATA, IMAGING STUDIES, MICROBIOLOGY: Please see below. Laboratory Tests 12/05/18 17:14 Red Blood Count 1.55 L, Mean Corpuscular Volume 117.4 H, Mean Corpuscular Hemoglobin 42.6 H, Mean Corpuscular Hemoglobin Concent 36.3, Red Cell Distribution Width 17.2 H, Calcium Level 8.5, Aspartate Amino Transf (AST/SGOT) 25, Alanine Aminotransferase (ALT/SGPT) 23, Lactate Dehydrogenase 680 H, Alkaline Phosphatase 50, Total Bilirubin 3.9 H, Direct Bilirubin 0.3 H, Total Protein 6.1 L, Albumin 3.8 12/06/18 05:26 Red Blood Count 2.20 L, Mean Corpuscular Volume 109.1 H, Mean Corpuscular Hemoglobin 39.1 H, Mean Corpuscular Hemoglobin Concent 35.8, Red Cell Distribution Width 22.1 H, Calcium Level 8.3 L, Aspartate Amino Transf (AST/SGOT) 22, Alanine Aminotransferase (ALT/SGPT) 21, Alkaline Phosphatase 50, Total Bilirubin 5.0 H, Total Protein 5.9 L, Albumin 3.5 12/06/18 16:38 Red Blood Count 2.14 L, Mean Corpuscular Volume 108.4 H, Mean Corpuscular Hemoglobin 39.7 H, Mean Corpuscular Hemoglobin Concent 36.6 H, Red Cell Distribution Width 22.2 H, Neutrophils (%) (Auto) 48.1, Lymphocytes (%) (Auto) 48.0 H, Monocytes (%) (Auto) 2.2, Eosinophils (%) (Auto) 0.9, Basophils (%) (Auto) 0.4, Neutrophils # (Auto) 1.1 L, Lymphocytes # (Auto) 1.1 L, Monocytes # (Auto) 0.1, Eosinophils # (Auto) 0.0, Basophils # (Auto) 0.0 12/07/18 05:42 Red Blood Count 2.30 L, Mean Corpuscular Volume 105.2 H, Mean Corpuscular Hemoglobin 38.7 H, Mean Corpuscular Hemoglobin Concent 36.8 H, Red Cell Distribution Width 21.2 H, Calcium Level 8.2 L, Aspartate Amino Transf (AST/SGOT) 20, Alanine Aminotransferase (ALT/SGPT) 24, Lactate Dehydrogenase 743 H, Alkaline Phosphatase 48, Total Bilirubin 4.6 H, Total Protein 6.0 L, Albumin 3.7, Neutrophils (%) (Auto) 50.9, Lymphocytes (%) (Auto) 46.1 H, Monocytes (%) (Auto) 2.2, Eosinophils (%) (Auto) 0.4, Basophils (%) (Auto) 0.0, Neutrophils # (Auto) 1.4 L, Lymphocytes # (Auto) 1.2 L, Monocytes # (Auto) 0.1, Eosinophils # (Auto) 0.0, Basophils # (Auto) 0.0 DVT prophylaxis ordered?: ASSESSMENT AND PLAN: This is a -year-old [RACE] [GENDER] with . PROBLEMS: 1. Vitamin B12 deficiency with hemolytic anemia Sciatica epigastric pain possible PUD Plan Continue the Vitamin B12 supplementation monitor the LDH , Potassium level , retic counts and LDH As treatment progresses , the LDH should drop retic count should go up in about 3-4 days Hemoglobin should rise in @ 10 days LDH should start to normalize in 48 hours ALways give the B12 first as giving the folate first in sever B12 deficiency can cause a syndrome of check iron stores as supplementation here may need to be done as well VS, I&O, 24H, Fishbone Vital Signs/I&O Vital Signs Date Time Temp Pulse Resp B/P (MAP) Pulse Ox O2 Delivery O2 Flow Rate FiO2 12/07/18 06:00 98.6 69 17 147/85 (105) 100 12/05/18 22:10 Room Air I&O- Last 24 Hours up to 6 AM 12/07/18 05:59 Intake Total 1600 ml Output Total 350 ml Balance 1250 ml Laboratory Data 24H LABS Laboratory Tests 2 12/06/18 09:58: Urine Color YELLOW, Urine Appearance CLEAR, Urine pH 6.0, Urine Specific [place] 1.009, Urine Protein NEGATIVE, Urine Glucose (UA) NEGATIVE, Urine Ketones NEGATIVE, Urine Blood 1+H, Urine Nitrite NEGATIVE, Urine Bilirubin NEGATIVE, Urine Urobilinogen 0.2, Urine Leukocyte Esterase TRACEH, Urine WBC (Auto) 4H, Urine RBC (Auto) 2, Urine Hyaline Casts (Auto) 0, Urine Bacteria (Auto) 1+H, Urine Squamous Epithelial Cells 0, Urine Sperm (Auto) 12/06/18 11:02: 12/06/18 11:06: Reticulocyte # (auto) 55.3, Percent Reticulocyte Count 2.6H, Reticulocyte Hemoglobin Equivalent 46.2H, Vitamin B12 Level 55L, Folate 17.2, Acetaminophen Level < 2.0L 12/06/18 16:38: Immature Granulocyte % (Auto) 0.4, White Blood Count 2.2L, Red Blood Count 2.14L, Hemoglobin 8.5L, Hematocrit 23.2L, Mean Corpuscular Volume 108.4H, Mean Corpuscular Hemoglobin 39.7H, Mean Corpuscular Hemoglobin Concent 36.6H, Red Cell Distribution Width 22.2H, Platelet Count 89L, Neutrophils (%) (Auto) 48.1, Lymphocytes (%) (Auto) 48.0H, Monocytes (%) (Auto) 2.2, Eosinophils (%) (Auto) 0.9, Basophils (%) (Auto) 0.4, Neutrophils # (Auto) 1.1L, Lymphocytes # (Auto) 1.1L, Monocytes # (Auto) 0.1, Eosinophils # (Auto) 0.0, Basophils # (Auto) 0.0, Nucleated Red Blood Cells % (auto) 0.0 12/07/18 05:42: Immature Granulocyte % (Auto) 0.4, White Blood Count 2.7L, Red Blood Count 2.30L, Hemoglobin 8.9L, Hematocrit 24.2L, Mean Corpuscular Volume 105.2H, Mean Corpuscular Hemoglobin 38.7H, Mean Corpuscular Hemoglobin Concent 36.8H, Red Cell Distribution Width 21.2H, Platelet Count 114L, Neutrophils (%) (Auto) 50.9, Lymphocytes (%) (Auto) 46.1H, Monocytes (%) (Auto) 2.2, Eosinophils (%) (Auto) 0.4, Basophils (%) (Auto) 0.0, Neutrophils # (Auto) 1.4L, Lymphocytes # (Auto) 1.2L, Monocytes # (Auto) 0.1, Eosinophils # (Auto) 0.0, Basophils # (Auto) 0.0, Reticulocyte # (auto) 76.4, Nucleated Red Blood Cells % (auto) 0.0, Percent Reticulocyte Count 2.9H, Reticulocyte Hemoglobin Equivalent 45.1H, Anion Gap 7L, Glomerular Filtration Rate > 60.0, Blood Urea Nitrogen 7, Creatinine 0.71, Sodium Level 141, Potassium Level 3.2L, Chloride Level 109H, Carbon Dioxide Level 25, Calcium Level 8.2L, Aspartate Amino Transf (AST/SGOT) 20, Alanine Aminotransferase (ALT/SGPT) 24, Lactate Dehydrogenase 743H, Alkaline Phosphatase 48, Total Bilirubin 4.6H, Total Protein 6.0L, Albumin 3.7, Albumin/Globulin Ratio 1.61 CBC/BMP Laboratory Tests 12/06/18 16:38 Red Blood Count 2.14 L, Mean Corpuscular Volume 108.4 H, Mean Corpuscular Hemoglobin 39.7 H, Mean Corpuscular Hemoglobin Concent 36.6 H, Red Cell Distribution Width 22.2 H, Neutrophils (%) (Auto) 48.1, Lymphocytes (%) (Auto) 48.0 H, Monocytes (%) (Auto) 2.2, Eosinophils (%) (Auto) 0.9, Basophils (%) (Auto) 0.4, Neutrophils # (Auto) 1.1 L, Lymphocytes # (Auto) 1.1 L, Monocytes # (Auto) 0.1, Eosinophils # (Auto) 0.0, Basophils # (Auto) 0.0 12/07/18 05:42 Red Blood Count 2.30 L, Mean Corpuscular Volume 105.2 H, Mean Corpuscular Hemoglobin 38.7 H, Mean Corpuscular Hemoglobin Concent 36.8 H, Red Cell Distribution Width 21.2 H, Neutrophils (%) (Auto) 50.9, Lymphocytes (%) (Auto) 46.1 H, Monocytes (%) (Auto) 2.2, Eosinophils (%) (Auto) 0.4, Basophils (%) (Auto) 0.0, Neutrophils # (Auto) 1.4 L, Lymphocytes # (Auto) 1.2 L, Monocytes # (Auto) 0.1, Eosinophils # (Auto) 0.0, Basophils # (Auto) 0.0, Calcium Level 8.2 L, Aspartate Amino Transf (AST/SGOT) 20, Alanine Aminotransferase (ALT/SGPT) 24, Lactate Dehydrogenase 743 H, Alkaline Phosphatase 48, Total Bilirubin 4.6 H, T otal Protein 6.0 L, Albumin 3.7 Microbiology Microbiology 12/06/18 Urine Culture - Final, Complete Dona Patel MD Dec 07, 2018 08:22
[2018-12-07] MEDS ORDERED: FOLIC ACID 1 MG TAB PO SCH (09:00)
[2018-12-07 09:16] LABS: HEPATITIS B SURFACE ANTIGEN NEGATIVE (NEGATIVE)
[2018-12-07] MEDS: CYANOCOBALAMIN 1,000 MCG/ML VIAL (J3420) IM SCH (09:28)
[2018-12-07] MEDS: SENOKOT S TAB PO SCH ×2 (09:28→22:11)
[2018-12-07] MEDS: OMEPRAZOLE 20 MG CAP PO SCH (09:28)
[2018-12-07] MEDS: FOLIC ACID 1 MG TAB PO SCH (09:29)
[2018-12-07] MEDS: GABAPENTIN 100 MG CAP PO SCH ×3 (09:29→22:11)
[2018-12-07] MEDS: ASCORBIC ACID 500 MG TAB PO SCH ×2 (09:29→22:11)
[2018-12-07] MEDS: MIRALAX *UNIT DOSE* 17GM PACKET PO SCH (09:29)
[2018-12-07] MEDS: SERTRALINE 100 MG TAB PO SCH ×2 (09:29→22:11)
[2018-12-07 09:40] LABS: HEPATITIS B CORE ANTIBODY IGM NEGATIVE (NEGATIVE)
[2018-12-07] MEDS: FERROUS GLUCONATE 324 MG TAB PO SCH (09:40)
[2018-12-07 09:45] LABS: HEPATITIS A ANTIBODY IGM NEGATIVE (NEGATIVE)
--- NOTE | 2018-12-07 10:01 | REP ---
MRI lumbar spine without contrast: Repeat dictation. History: Disc herniation. Comparison is made with CT imaging from abdomen pelvis CT study December 05, 2018. Technique: Sagittal and axial T1 and T2-weighted scans are acquired in the usual fashion with and without fat saturation. Sequences include spin echo, turbo spin-echo, and STIR imaging sequences. MRI findings: There is straightening of the normal lumbar lordosis. There is a diffuse decrease in T1 marrow signal intensity question response to anemia. No bony destructive lesion is seen. The tip of the conus medullaris is normal in position and appearance at L1. There is a low T1 high T2 signal intensity cystic lesion in the subcutaneous fat of the para lumbar soft tissues to the right of midline. This measures 4.6 cm in greatest diameter and is visualized on recent CT study. This is most likely a sebaceous cyst. No other extra vertebral abnormalities observed. There is straightening of the normal lumbar lordosis. There is mild decreased disc space height and signal intensity at the L3-4 intervertebral disc. There is mild diffuse disc bulging at L3-4. This indents the ventral margin of the thecal sac. No significant central canal stenosis is seen. No foraminal narrowing is observed. At L4-5, there is mild disc narrowing and diffuse disc bulging also noted. No central canal stenosis is seen. No foraminal narrowing is observed. At L5-S1, there is mild facet hypertrophy bilaterally. No neural foraminal narrowing or central canal stenosis is seen. Impression: Mild degenerative spondylosis changes. Diffuse disc bulging L3-4 and L4-5. Mild facet hypertrophy at L5-S1. Diffusely decreased marrow signal question anemia. Otherwise negative. Electronically Signed by Jamal Geronimo MD 12/07/2018 12:57 P
[2018-12-07 10:04] LABS: HEPATITIS C VIRUS ABY INDEX 0.2 INDEX (<0.8)
--- NOTE | 2018-12-07 10:06 | REP ---
MRI RIGHT HIP: TECHNIQUE: Coronal T1, STIR through the pelvis, T2 fat sat, right hip all three planes, axial oblique proton density fat sat right hip. Visualized osseous structures demonstrate scattered diffuse reconversion to red bone marrow. This can be seen in smokers as well as medical conditions such as obesity, respiratory disorders and diabetes. There is no bone marrow edema or occult fracture. There is no evidence of avascular necrosis. There is no evidence of a labral tear. There is a normal amount of joint fluid. No paralabral cyst is seen. There is mild fluid along the greater trochanter compatible with mild greater trochanteric tendinobursitis. On the left there is edema and a tiny amount of fluid along the iliotibial tract likely representing tendonitis in this region. In the visualized pelvis mild free fluid is seen in the cul-de-sac without other significant abnormality. IMPRESSION: No bone marrow edema or occult fracture. No evidence of avascular necrosis or labral tear. There are findings suggesting mild right sided greater trochanteric tendinobursitis. On the left edema along the iliotibial tract suggests diffuse tendinitis. Mild free fluid in the pelvis. Electronically Signed by Taiwo Madrigal MD 12/07/2018 06:21 P
--- NOTE | 2018-12-07 10:17 | IPNPDOC ---
Subjective Date Seen The patient was seen on 12/07/18. Subjective Chief Complaint/HPI No new complaints this am. Says did not sleep and she was anxious about the MRI. Continues to have right buttock and hip pain. Feels she is burning. She was very anxious about the noise from the bedside monitor which she felt like was bothering her ears. Easily getting agitated and emotional having hallucinations. she seems to be confused. Trying to get out of bed saying something was vibrating in the bed and making noises and poking her. Denies any abdominal pain, no fever or chills. says has not had a bowel movement for several days. Objective Physical Examination General Exam: Positive: Alert, Cooperative, No Acute Distress Eye Exam: Positive: PERRLA, Conjunctiva & lids normal, EOMI, Sclera icteric ENT Exam: Positive: Atraumatic, Mucous membr. moist/pink, Pharynx Normal Neck Exam: Positive: Supple; Negative: JVD, thyromegaly Chest Exam: Positive: Clear to auscultation, Normal air movement Heart Exam: Positive: Rate Normal, Regular Rhythm, Normal S1, Normal S2; Negative: Murmurs, Rubs Telemetry: Positive: No significant arrhythmia Abdomen Exam: Positive: Normal bowel sounds, Soft, Tenderness (in the right upper quadrant); Negative: Hepatospenomegaly Extremity Exam: Positive: Normal pulses; Negative: Clubbing, Cyanosis, Edema Neuro Exam: Positive: Strength at 5/5 X4 ext, Normal Tone, Cranial Nerves 3-12 NL, Other (4+ DTRS in all 4 limbs, bilateral knee clonus present. ) Psych Exam: Positive: Mental status NL, Mood NL, Oriented x 3 Assessment /Plan Assessment Ms. Geronimo is a 43-year-old female with a past medical history of hypothyroidism, DJD, rheumatoid arthritis ?, depression, iron deficiency anemia, and chronic lower back pain presented to the ED with worsening low back pain and multiple other complaints including paresthesias affecting feet, abdominal pain, palpitations, anorexia, shortness of breath, tinnitus affecting the left ear, cough, runny nose, sore throat, 1 episode of nonbloody emesis a few days ago and unintentional 18 pound weight loss. She was found to be pancytopenic. Stool occult was positive. She was admitted for evaluation of pancytopenia. Pancytopenia---Vit B12 deficiency Due to Vit B12 deficiency hepatitis panel negative. Work up for parvovirus infection,flow cytometry ordered No iron deficiency at present will repeat in 3 days. blood transfusion prn /follow up retic #, LDH daily. Intrinsic factor ordered. GI consulted for EGD and colonoscopy pateint refused at this time wants to do it as an outpatient. IM cyanocobalamin daily for 13 days, folic acid 2 mg daily. Confusion/ agitation/ irritability ? 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 this could be due to pancytopenia as per haul cane brakeman Once pancytopenia improves this should also resolve. to follow up in clinic Lumber radiculopathy/ sciatica with increased DTRs MRI of lumber spine and right hip done report pending appreciate ortho input gabapentin tid pt/ot Abdominal pain. resolved. has gall stone single one no CT evidence of acute cholecystitis. GB ultrasound showed Cholelithiasis with tenderness to scanning over the gallbladder. Large gallbladder stone. symptomatic management. Indirect Hyperbilirubinemia with elevation of LDH, haptoglobin pending. due to vit b 12 deficiency follow up LFTS. Hypothyroid continue Synthroid DVT prophylaxis with SCDs. Disposition pending clinical course Plan/VTE VTE Prophylaxis Ordered?: Yes VS, I&O, 24H, Fishbone Vital Signs/I&O Vital Signs Date Time Temp Pulse Resp B/P (MAP) Pulse Ox O2 Delivery O2 Flow Rate FiO2 12/07/18 06:00 98.6 69 17 147/85 (105) 100 12/05/18 22:10 Room Air I&O- Last 24 Hours up to 6 AM 12/07/18 06:00 Intake Total 1000 ml Output Total 350 ml Balance 650 ml Laboratory Data 24H LABS Laboratory Tests 2 12/06/18 11:02: 12/06/18 11:06: Reticulocyte # (auto) 55.3, Percent Reticulocyte Count 2.6H, Reticulocyte Hemoglobin Equivalent 46.2H, Vitamin B12 Level 55L, Folate 17.2, Acetaminophen Level < 2.0L, Hepatitis A IgM Antibody NEGATIVE, Hepatitis B Surface Antigen NEGATIVE, Hepatitis B Core IgM Antibody NEGATIVE, Hepatitis C Antibody Index 0.2 12/06/18 16:38: Immature Granulocyte % (Auto) 0.4, White Blood Count 2.2L, Red Blood Count 2.14L, Hemoglobin 8.5L, Hematocrit 23.2L, Mean Corpuscular Volume 108.4H, Mean Corpuscular Hemoglobin 39.7H, Mean Corpuscular Hemoglobin Concent 36.6H, Red Cell Distribution Width 22.2H, Platelet Count 89L, Neutrophils (%) (Auto) 48.1, Lymphocytes (%) (Auto) 48.0H, Monocytes (%) (Auto) 2.2, Eosinophils (%) (Auto) 0.9, Basophils (%) (Auto) 0.4, Neutrophils # (Auto) 1.1L, Lymphocytes # (Auto) 1.1L, Monocytes # (Auto) 0.1, Eosinophils # (Auto) 0.0, Basophils # (Auto) 0.0, Nucleated Red Blood Cells % (auto) 0.0 12/07/18 05:42: Reticulocyte # (auto) 76.4, Percent Reticulocyte Count 2.9H, Reticulocyte Hemoglobin Equivalent 45.1H, Immature Granulocyte % (Auto) 0.4, White Blood Count 2.7L, Red Blood Count 2.30L, Hemoglobin 8.9L, Hematocrit 24.2L, Mean Corpuscular Volume 105.2H, Mean Corpuscular Hemoglobin 38.7H, Mean Corpuscular Hemoglobin Concent 36.8H, Red Cell Distribution Width 21.2H, Platelet Count 114L, Neutrophils (%) (Auto) 50.9, Lymphocytes (%) (Auto) 46.1H, Monocytes (%) (Auto) 2.2, Eosinophils (%) (Auto) 0.4, Basophils (%) (Auto) 0.0, Neutrophils # (Auto) 1.4L, Lymphocytes # (Auto) 1.2L, Monocytes # (Auto) 0.1, Eosinophils # (Auto) 0.0, Basophils # (Auto) 0.0, Nucleated Red Blood Cells % (auto) 0.0, Anion Gap 7L, Glomerular Filtration Rate > 60.0, Blood Urea Nitrogen 7, Creatinine 0.71, Sodium Level 141, Potassium Level 3.2L, Chloride Level 109H, Carbon Dioxide Level 25, Calcium Level 8.2L, Aspartate Amino Transf (AST/SGOT) 20, Alanine Aminotransferase (ALT/SGPT) 24, Lactate Dehydrogenase 743H, Alkaline Phosphatase 48, Total Bilirubin 4.6H, Total Protein 6.0L, Albumin 3.7, Albumin/Globulin Ratio 1.61 CBC/BMP Laboratory Tests 12/06/18 16:38 Red Blood Count 2.14 L, Mean Corpuscular Volume 108.4 H, Mean Corpuscular Hemoglobin 39.7 H, Mean Corpuscular Hemoglobin Concent 36.6 H, Red Cell Distribution Width 22.2 H, Neutrophils (%) (Auto) 48.1, Lymphocytes (%) (Auto) 4 8.0 H, Monocytes (%) (Auto) 2.2, Eosinophils (%) (Auto) 0.9, Basophils (%) (Auto) 0.4, Neutrophils # (Auto) 1.1 L, Lymphocytes # (Auto) 1.1 L, Monocytes # (Auto) 0.1, Eosinophils # (Auto) 0.0, Basophils # (Auto) 0.0 12/07/18 05:42 Red Blood Count 2.30 L, Mean Corpuscular Volume 105.2 H, Mean Corpuscular Hemoglobin 38.7 H, Mean Corpuscular Hemoglobin Concent 36.8 H, Red Cell Distribution Width 21.2 H, Neutrophils (%) (Auto) 50.9, Lymphocytes (%) (Auto) 46.1 H, Monocytes (%) (Auto) 2.2, Eosinophils (%) (Auto) 0.4, Basophils (%) (Auto) 0.0, Neutrophils # (Auto) 1.4 L, Lymphocytes # (Auto) 1.2 L, Monocytes # (Auto) 0.1, Eosinophils # (Auto) 0.0, Basophils # (Auto) 0.0, Calcium Level 8.2 L, Aspartate Amino Transf (AST/SGOT) 20, Alanine Aminotransferase (ALT/SGPT) 24, Lactate Dehydrogenase 743 H, Alkaline Phosphatase 48, Total Bilirubin 4.6 H, Total Protein 6.0 L, Albumin 3.7 Microbiology Microbiology 12/06/18 Urine Culture - Final, Complete DWAINE SHAW MD Dec 07, 2018 10:17
[2018-12-07 14:00] VITALS: BP 137/94
[2018-12-07] MEDS ORDERED: HALOPERIDOL 5 MG/ML VIAL (J1630) IV PRN (18:45)
[2018-12-07 22:00] VITALS: BP 119/80
[2018-12-07] MEDS: ACETAMINOPHEN 500 MG TAB PO PRN (22:11)
[2018-12-08] MEDS: HALOPERIDOL 5 MG/ML VIAL (J1630) IV PRN ×2 (04:03→12:05)
[2018-12-08 05:32] LABS: EOS % 1.3 % (0.0-3.0); HEMATOCRIT 21.9 % (36.0-47.0); HEMOGLOBIN 8.1 g/dl (12.0-15.5); LYMPH # 1.1 10^3/uL (1.5-5.0); LYMPH % 35.5 % (24.0-44.0); MEAN CORPUSCULAR HEMOGLOBIN 38.9 pg (27.0-33.0); MEAN CORPUSCULAR VOLUME 105.3 fl (80.0-96.0); MONO # 0.2 10^3/uL (0.0-0.8); MONO % 6.3 % (0.0-5.0); NEUTROPHILS # 1.8 10^3/uL (1.5-8.5); NEUTROPHILS % 55.6 % (36.0-66.0); PLATELET COUNT, AUTOMATED 101 10^3/uL (150-450); RED BLOOD COUNT 2.08 10^6/uL (4.00-5.40); WHITE BLOOD COUNT 3.2 10^3/uL (4.0-10.0)
[2018-12-08] MEDS: LEVOTHYROXINE 25MCG TABLET (0.025MG) PO SCH (05:37)
[2018-12-08 05:49] LABS: ALBUMIN 3.4 GM/DL (3.2-5.2); ALT/SGPT 20 U/L (12-78); BILIRUBIN,TOTAL 3.7 MG/DL (0.2-1.0); BLOOD UREA NITROGEN 8 MG/DL (7-18); CALCIUM LEVEL 8.1 MG/DL (8.5-10.1); CARBON DIOXIDE LEVEL 24 MEQ/L (21-32); CHLORIDE LEVEL 109 MEQ/L (98-107); CREATININE FOR GFR 0.63 MG/DL (0.55-1.30); GLOMERULAR FILTRATION RATE > 60.0 (>58); GLUCOSE, FASTING 94 MG/DL (70-100); LDH LACTATE DEHYDROGENASE 662 U/L (84-246); POTASSIUM SERUM 3.1 MEQ/L (3.5-5.1); SODIUM LEVEL 141 MEQ/L (136-145); TOTAL PROTEIN 5.3 GM/DL (6.4-8.2)
[2018-12-08 06:00] VITALS: BP 131/76
[2018-12-08 08:00] VITALS: BP 124/84
[2018-12-08 08:02] LABS: TOTAL 25(OH) VITAMIN D 28.5 NG/ML (30.0-100.0)
[2018-12-08] MEDS: FERROUS GLUCONATE 324 MG TAB PO SCH (09:14)
[2018-12-08] MEDS: CYANOCOBALAMIN 1,000 MCG/ML VIAL (J3420) IM SCH (09:14)
[2018-12-08] MEDS: GABAPENTIN 100 MG CAP PO SCH ×3 (09:15→20:33)
[2018-12-08] MEDS: SERTRALINE HCL 50 MG TAB PO SCH ×2 (09:15→20:33)
[2018-12-08] MEDS: ASCORBIC ACID 500 MG TAB PO SCH ×2 (09:15→20:34)
[2018-12-08] MEDS: MIRALAX *UNIT DOSE* 17GM PACKET PO SCH (09:15)
[2018-12-08] MEDS: SENOKOT S TAB PO SCH ×2 (09:15→20:34)
--- NOTE | 2018-12-08 10:26 | IPNPDOC ---
Subjective Date Seen The patient was seen on 12/08/18. Subjective Chief Complaint/HPI Calmer this morning, does not seem to be hallucinating now. Does not apper to be paranoid at this time however remains irritable and easily agitated. Responded well to haloperidol . I talked with yesterday. knows her for 3 years only and she has always been anxious and does not like people much but over the past 6 months ot 1 year she has been having more frequent episodes of agitation and paranoia. All her medications has been started within the last 1 to 2 months when she started seeing a PMD in [facility] and started having trouble to walking. No fever ro chills, no chest pain or SOB. Has not had a bowel movement yet. No abdominal pain nausea or vomiting. Objective Physical Examination General Exam: Positive: Alert, Cooperative, No Acute Distress Eye Exam: Positive: PERRLA, Conjunctiva & lids normal, EOMI, Sclera icteric ENT Exam: Positive: Atraumatic, Mucous membr. moist/pink, Pharynx Normal Neck Exam: Positive: Supple; Negative: JVD, thyromegaly Chest Exam: Positive: Clear to auscultation, Normal air movement Heart Exam: Positive: Rate Normal, Regular Rhythm, Normal S1, Normal S2; Negative: Murmurs, Rubs Telemetry: Positive: No significant arrhythmia Abdomen Exam: Positive: Normal bowel sounds, Soft, Tenderness (in the right upper quadrant); Negative: Hepatospenomegaly Extremity Exam: Positive: Normal pulses; Negative: Clubbing, Cyanosis, Edema Neuro Exam: Positive: Strength at 5/5 X4 ext, Normal Tone, Cranial Nerves 3-12 NL, Other (3+ DTRS in lower extremities, 2+ in upper extremities , no clonus) Psych Exam: Positive: Anxiety, Oriented x 3, Other (irritable with episodes of paranoia and hallucination) Assessment /Plan Assessment Ms. Geronimo is a 43-year-old female with a past medical history of hypothyroidism, DJD, rheumatoid arthritis ?, depression, iron deficiency anemia, and chronic lower back pain presented to the ED with worsening low back pain and multiple other complaints including paresthesias affecting feet, abdominal pain, palpitations, anorexia, shortness of breath, tinnitus affecting the left ear, cough, runny nose, sore throat, 1 episode of nonbloody emesis a few days ago and unintentional 18 pound weight loss. She was found to be pancytopenic. Stool occult was positive. She was admitted for evaluation of pancytopenia. Confusion/ agitation/ irritability/paranoia/hallucination most possibly due to Neuropsychiatric manifestations of Vit B 12 deficiency will also check thiamine level, copper level symptomatic management haldol and benadryl. Frequent reorientation, reassurance will get EEG and mri brain. Neuro consult Pancytopenia---Vit B12 deficiency Due to Vit B12 deficiency hepatitis panel negative. Work up for parvovirus infection,flow cytometry ordered No iron deficiency at present will repeat in 3 days. blood transfusion prn /follow up retic #, LDH daily. Intrinsic factor ordered. GI consulted for EGD and colonoscopy pateint refused at this time wants to do it as an outpatient. IM cyanocobalamin daily for 13 days, folic acid 2 mg daily. Menorrhagia Appreciate MIRROR FABRICATION SUPERVISOR input. this could be due to pancytopenia as per electrical instrument repairer Once pancytopenia improves this should also resolve. to follow up in clinic Myelopathy Due to Vitamin B12 deficiency. Lumber radiculopathy/ sciatica with increased DTRs MRI of lumber spine and right hip negative for disc prolapse appreciate ortho input gabapentin tid pt/ot Abdominal pain. resolved. has gall stone single one no CT evidence of acute cholecystitis. GB ultrasound showed Cholelithiasis with tenderness to scanning over the gallbladder. Large gallbladder stone. symptomatic management. Hemolytic anemia Indirect Hyperbilirubinemia with elevation of LDH, haptoglobin very low due to vit b 12 deficiency follow up LFTS. Hypothyroid continue Synthroid DVT prophylaxis with SCDs. Disposition pending clinical course Plan/VTE VTE Prophylaxis Ordered?: Yes VS, I&O, 24H, Fishbone Vital Signs/I&O Vital Signs Date Time Temp Pulse Resp B/P (MAP) Pulse Ox O2 Delivery O2 Flow Rate FiO2 12/08/18 06:00 98.1 81 18 131/76 (94) 100 12/05/18 22:10 Room Air I&O- Last 24 Hours up to 6 AM 12/08/18 05:59 Intake Total 805 ml Output Total 0 ml Balance 805 ml Laboratory Data 24H LABS Laboratory Tests 2 12/08/18 05:13: Immature Granulocyte % (Auto) 1.3, White Blood Count 3.2L, Red Blood Count 2.08L, Hemoglobin 8.1L, Hematocrit 21.9L, Mean Corpuscular Volume 105.3H, Mean Corpuscular Hemoglobin 38.9H, Mean Corpuscular Hemoglobin Concent 37.0H, Red Cell Distribution Width 20.3H, Platelet Count 101L, Neutrophils (%) (Auto) 55.6, Lymphocytes (%) (Auto) 35.5, Monocytes (%) (Auto) 6.3H, Eosinophils (%) (Auto) 1.3, Basophils (%) (Auto) 0.0, Neutrophils # (Auto) 1.8, Lymphocytes # (Auto) 1.1L, Monocytes # (Auto) 0.2, Eosinophils # (Auto) 0.0, Basophils # (Auto) 0.0, Reticulocyte # (auto) 44.9, Nucleated Red Blood Cells % (auto) 0.6H, Percent Reticulocyte Count 2.2H, Reticulocyte Hemoglobin Equivalent 46.0H, Anion Gap 8, Glomerular Filtration Rate > 60.0, Blood Urea Nitrogen 8, Creatinine 0.63, Sod ium Level 141, Potassium Level 3.1L, Chloride Level 109H, Carbon Dioxide Level 24, Calcium Level 8.1L, Aspartate Amino Transf (AST/SGOT) 19, Alanine Aminotransferase (ALT/SGPT) 20, Lactate Dehydrogenase 662H, Alkaline Phosphatase 45, Total Bilirubin 3.7H, Total Protein 5.3L, Albumin 3.4, Albumin/Globulin Ratio 1.79, 25-Hydroxy Vitamin D Total 28.5L CBC/BMP Laboratory Tests 12/08/18 05:13 Red Blood Count 2.08 L, Mean Corpuscular Volume 105.3 H, Mean Corpuscular Hemoglobin 38.9 H, Mean Corpuscular Hemoglobin Concent 37.0 H, Red Cell Distribution Width 20.3 H, Neutrophils (%) (Auto) 55.6, Lymphocytes (%) (Auto) 35.5, Monocytes (%) (Auto) 6.3 H, Eosinophils (%) (Auto) 1.3, Basophils (%) (Auto) 0.0, Neutrophils # (Auto) 1.8, Lymphocytes # (Auto) 1.1 L, Monocytes # (Auto) 0.2, Eosinophils # (Auto) 0.0, Basophils # (Auto) 0.0, Calcium Level 8.1 L, Aspartate Amino Transf (AST/SGOT) 19, Alanine Aminotransferase (ALT/SGPT) 20, Lactate Dehydrogenase 662 H, Alkaline Phosphatase 45, Total Bilirubin 3.7 H, Total Protein 5.3 L, Albumin 3.4 Microbiology Microbiology 12/06/18 Urine Culture - Final, Complete DWAINE SHAW MD Dec 08, 2018 10:26
[2018-12-08] MEDS: POTASSIUM CHLORIDE 10 MEQ SR TABLET PO SCH (10:57)
[2018-12-08] MEDS: FOLIC ACID 1 MG TAB PO SCH (11:08)
[2018-12-08] MEDS ORDERED: POTA20TA6 PO (13:35)
[2018-12-08 14:00] VITALS: BP 150/99
--- NOTE | 2018-12-08 14:10 | REP ---
MRI brain without contrast: History: Encephalopathy. . Comparison study: No comparison brain imaging. Technique: Axial and sagittal imaging planes are utilized for T1 and T2-weighted scans. Sequences include spin-echo, fast spin echo, FLAIR, and diffusion weighted sequences. MRI findings: No bony calvarial lesion is seen. Craniocervical junction and upper cervical cord are normal in appearance. There is no MR evidence of significant paranasal sinus disease. No intraorbital abnormality is seen. The lateral, third, and fourth ventricles are normal in size and position. Madrigal-white differentiation pattern is intact above and below the tentorium. There is no evidence of intracranial hemorrhage. No mass, infarction, extra-axial fluid collection or midline shift is seen. No abnormal white matter lesion is seen. Impression: Negative noncontrast brain MRI study. Electronically Signed by Jamal Geronimo MD 12/08/2018 02:02 P
[2018-12-08 22:00] VITALS: BP 137/87
[2018-12-08] MEDS: diphenhydrAMINE INJ 50MG/ML VIAL (J1200) IV PRN (22:07)
[2018-12-09 05:51] LABS: BASO % 0.2 % (0.0-1.0); HEMATOCRIT 25.5 % (36.0-47.0); HEMOGLOBIN 9.2 g/dl (12.0-15.5); LYMPH # 1.7 10^3/uL (1.5-5.0); LYMPH % 39.8 % (24.0-44.0); MEAN CORPUSCULAR HEMOGLOBIN 38.5 pg (27.0-33.0); MEAN CORPUSCULAR HGB CONC 36.1 g/dl (32.0-36.5); MEAN CORPUSCULAR VOLUME 106.7 fl (80.0-96.0); MONO # 0.4 10^3/uL (0.0-0.8); MONO % 9.8 % (0.0-5.0); NEUTROPHILS # 1.9 10^3/uL (1.5-8.5); NEUTROPHILS % 46.1 % (36.0-66.0); PLATELET COUNT, AUTOMATED 126 10^3/uL (150-450); RED BLOOD COUNT 2.39 10^6/uL (4.00-5.40); WHITE BLOOD COUNT 4.2 10^3/uL (4.0-10.0)
[2018-12-09 06:00] VITALS: BP 138/88
[2018-12-09 06:16] LABS: ALBUMIN 3.9 GM/DL (3.2-5.2); ALT/SGPT 19 U/L (12-78); BILIRUBIN,TOTAL 3.5 MG/DL (0.2-1.0); BLOOD UREA NITROGEN 5 MG/DL (7-18); CALCIUM LEVEL 8.9 MG/DL (8.5-10.1); CARBON DIOXIDE LEVEL 25 MEQ/L (21-32); CHLORIDE LEVEL 108 MEQ/L (98-107); FERRITIN 430 NG/ML (8-252); GLOMERULAR FILTRATION RATE > 60.0 (>58); GLUCOSE, FASTING 85 MG/DL (70-100); IRON (FE) 62 UG/DL (50-170); LDH LACTATE DEHYDROGENASE 717 U/L (84-246); PERCENT SATURATION 28.3 % (13.2-45.0); POTASSIUM SERUM 3.5 MEQ/L (3.5-5.1); SODIUM LEVEL 143 MEQ/L (136-145); TOTAL IRON BINDING CAPACITY 219 UG/DL (250-450); TOTAL PROTEIN 6.6 GM/DL (6.4-8.2)
[2018-12-09] MEDS: LEVOTHYROXINE 25MCG TABLET (0.025MG) PO SCH (06:16)
[2018-12-09] MEDS: CYANOCOBALAMIN 1,000 MCG/ML VIAL (J3420) IM SCH (08:51)
[2018-12-09] MEDS: ASCORBIC ACID 500 MG TAB PO SCH ×2 (08:52→19:59)
[2018-12-09] MEDS: FERROUS GLUCONATE 324 MG TAB PO SCH (08:52)
[2018-12-09] MEDS: SENOKOT S TAB PO SCH ×2 (08:52→19:59)
[2018-12-09] MEDS: POTASSIUM CHLORIDE 10 MEQ SR TABLET PO SCH (08:52)
[2018-12-09] MEDS: MIRALAX *UNIT DOSE* 17GM PACKET PO SCH (08:52)
[2018-12-09] MEDS: SERTRALINE HCL 50 MG TAB PO SCH ×2 (08:52→19:59)
[2018-12-09] MEDS: GABAPENTIN 100 MG CAP PO SCH ×3 (08:52→19:59)
--- NOTE | 2018-12-09 09:47 | CR ---
DATE OF CONSULTATION: 12/09/2018 REFERRING PROVIDER: Dr. Johana Gilliam REASON FOR CONSULTATION: Gait ataxia, altered mental status. Filomena Geronimo is a 43-year-old female who has been having longstanding history of low back pain with sciatica affecting her right leg associated with paresthesias of the feet who presented with symptoms of palpitations, abdominal pain, anorexia, shortness of breath, tinnitus in the left ear, emesis, 18 pounds weight loss. The patient has been paranoid, agitated and confused during the initial hospital stay, this is improved with Haldol. MRI of the brain did not reveal any acute intracranial pathology. The patient had a slight evidence of UTI. The patient was noted to have pancytopenia. The patient has a history of fibromyalgia. She is noted by in lab work to have severe B12 deficiency with the level of 55. She has been receiving B12 intramuscular injections 1000 mcg daily. The patient had blood work sent off for her for an to parietal cell antibody which was quite high confirming the patient has pernicious anemia. The patient is an little bit better. She is quite hyperreflexic in all four extremities and is quite ataxia. She states that all of the symptoms started 1 month ago. She was started on gabapentin on month ago and states that the symptoms started soon after starting gabapentin. Gabapentin was currently 100 mg three times a day. Next the patient was seen by Hematology/Oncology for her B12 efficiency with hemolytic anemia. REVIEW OF SYSTEMS: 14-point review of systems obtained is negative except as per HPI. PAST MEDICAL HISTORY: Hypothyroidism, iron-deficiency anemia, degenerative disk disease, low back fibromyalgia of sciatica the right leg. PAST SURGICAL HISTORY: Tonsillectomy, adenoidectomy and . SOCIAL HISTORY: The patient denies use of tobacco, alcohol or illicit drugs. FAMILY HISTORY: Noncontributory. ALLERGIES: Penicillin. MEDICATIONS: vitamin C 500 mg by mouth twice a day, ferrous sulfate 325 mg daily by mouth daily, gabapentin 100 mg by mouth daily, Levothyroxine 24 mcg by mouth daily, omeprazole 40 mg daily, prednisone 10 mg patient daily, sertraline 100 mg by mouth twice a day, acetaminophen 5 mg by mouth twice a day, albuterol as needed, pseudoephedrine as needed, senna as needed. PHYSICAL EXAMINATION: Blood pressure is 150/99, pulse rate 75, respiratory rate is 16, temperature is 98.5 degrees Fahrenheit oxygenation is 99% on room air. The patient is awake, alert, oriented person, place and time. Speech language comprehension, repetition are intact. Pupils 3 mm round, reactive to light. Extraocular movements are intact in all directions. Sensation V1, V2-V3 is intact to light touch. No facial asymmetry activation palate elevates symmetrically. Tongue is midline. There is no pronator drift. Strength is 5/5 including bilateral deltoids, biceps, triceps, the patient has weakness in iliopsoas grade 4/5 bilaterally, quadriceps 5/5 tibialis anterior 4+/5. Romberg testing is positive. The patient is extremely ataxic when trying to stand and walk. She cannot walk without a walker. Sensory is intact to light touch in all four extremities. Deep tendon reflexes are fours with spreading and clonus positive Babinski signs bilaterally. Suspect posterior lateral, involvement of the spinal cord next ASSESSMENT: 1. Severe B12 deficiency, suggesting subacute combined degeneration. PLAN: 1. B12 deficiency secondary to pernicious anemia with high intraparietal cell antibodies. 2. Rule out any cord etiology involving cervical thoracic spinal cord next agitation, confusion, delirium secondary to underlying metabolic encephalopathy. PLAN: 1. Continue B12 1000 mcg supplementation daily. Recheck B12 level checked vitamin B1 level agree with checking copper level for copper deficiency. Obtain MRI cervical thoracic spine without contrast. Case discussed with Dr. Gilliam. 2. Patient can followup in the [facility] neurology office as an outpatient for outpatient EMG nerve conduction studies in the future.
[2018-12-09] MEDS: FOLIC ACID 1 MG TAB PO SCH (12:07)
[2018-12-09 14:00] VITALS: BP 144/98
--- NOTE | 2018-12-09 15:07 | IPNPDOC ---
Subjective Date Seen The patient was seen on 12/09/18. Subjective Chief Complaint/HPI Very paranoid this morning. Has locked herself up twice this morning thinking doctors and nurses are coming to take her away. She refuses to leave her room. On opening the bathroom door she was found to be sitting on the floor and feet bent tot he side. She denied falling said just sat down on the floor. She refused to to helped up from the floor, refused to come out of the bathroom. would not let anyone touch her. She called 911 twice from the bathroom. After reassurances by different staff members specially one whom she has known for a ling time and is friends with she agreed to come out of the bathroom and allowed me to do a physical examination. This morning she had urinary retention. straight cath produced 1000 ml. Objective Physical Examination General Exam: Positive: Alert, No Acute Distress Eye Exam: Positive: PERRLA, Conjunctiva & lids normal, EOMI, Sclera icteric ENT Exam: Positive: Atraumatic, Mucous membr. moist/pink, Pharynx Normal Neck Exam: Positive: Supple; Negative: JVD, thyromegaly Chest Exam: Positive: Clear to auscultation, Normal air movement Heart Exam: Positive: Rate Normal, Regular Rhythm, Normal S1, Normal S2; Negative: Murmurs, Rubs Telemetry: Positive: No significant arrhythmia Abdomen Exam: Positive: Normal bowel sounds, Soft, Tenderness (in the right upper quadrant); Negative: Hepatospenomegaly Extremity Exam: Positive: Normal pulses; Negative: Clubbing, Cyanosis, Edema Neuro Exam: Positive: Strength at 5/5 X4 ext, Normal Tone, Cranial Nerves 3-12 NL, Other (3+ DTRS in lower extremities, 2+ in upper extremities , no clonus) Psych Exam: Positive: Anxiety, Other (irritable with paranoia ) Assessment /Plan Assessment Ms. Geronimo is a 43-year-old female with a past medical history of hypothyroidism, DJD, rheumatoid arthritis ?, depression, iron deficiency anemia, and chronic lower back pain presented to the ED with worsening low back pain and multiple other complaints including paresthesias affecting feet, abdominal pain, palpitations, anorexia, shortness of breath, tinnitus affecting the left ear, cough, runny nose, sore throat, 1 episode of non bloody emesis a few days ago and unintentional 18 pound weight loss. She was found to be pancytopenic. Stool occult was positive. She was admitted for evaluation of pancytopenia. Confusion/ agitation/ irritability/paranoia/hallucination most possibly due to Neuropsychiatric manifestations of Vit B 12 deficiency thiamine level, copper level in progress. symptomatic management haldol and benadryl. Frequent reorientation, reassurance will get EEG and mri brain. Neuro consult sitter. Vitamin B12 deficiency due to pernicious anemia has high intrinsic factor antibodies. Cyanocobalamin 1000 mcg daily. Myelopathy--Subacute combined degeneration of spinal cord. Due to Vitamin B12 deficiency. appreciate Neuroconsult MRI of lumber spine and right hip negative for disc prolapse appreciate ortho input gabapentin tid pt/ot Acute urinary retention probably due to myelopathy. will get bladder scan prn and if greater than [address] a pisano. Pancytopenia---Vit B12 deficiency hepatitis panel negative. Work up for parvovirus infection,flow cytometry in progress. No iron deficiency at present will repeat in 3 days. blood transfusion prn /follow up retic #, LDH daily. Intrinsic factor ordered. GI consulted for EGD and colonoscopy pateint refused at this time wants to do it as an outpatient. IM cyanocobalamin daily for 13 days, folic acid 2 mg daily. Menorrhagia Appreciate MECHANIC AND WELDER input. this could be due to pancytopenia as per store lead Once pancytopenia improves this should also resolve. to follow up in clinic Abdominal pain. resolved. has gall stone single one no CT evidence of acute cholecystitis. GB ultrasound showed Cholelithiasis with tenderness to scanning over the gallbladder. Large gallbladder stone. symptomatic management. Hemolytic anemia Indirect Hyperbilirubinemia with elevation of LDH, haptoglobin very low due to vit b 12 deficiency Hypothyroid continue Synthroid DVT prophylaxis with SCDs. Disposition pending clinical course Plan/VTE VTE Prophylaxis Ordered?: Yes VS, I&O, 24H, Fishbone Vital Signs/I&O Vital Signs Date Time Temp Pulse Resp B/P (MAP) Pulse Ox O2 Delivery O2 Flow Rate FiO2 12/09/18 06:00 99.0 63 18 138/88 (105) 100 12/05/18 22:10 Room Air I&O- Last 24 Hours up to 6 AM 12/09/18 06:00 Intake Total 960 ml Output Total 0 ml Balance 960 ml Laboratory Data 24H LABS Laboratory Tests 2 12/09/18 05:04: Immature Granulocyte % (Auto) 3.1H, White Blood Count 4.2, Red Blood Count 2.39L, Hemoglobin 9.2L, Hematocrit 25.5L, Mean Corpuscular Volume 106.7H, Mean Corpuscular Hemoglobin 38.5H, Mean Corpuscular Hemoglobin Concent 36.1, Red Cell Distribution Width 20.6H, Platelet Count 126L, Neutrophils (%) (Auto) 46.1, Lymphocytes (%) (Auto) 39.8, Monocytes (%) (Auto) 9.8H, Eosinophils (%) (Auto) 1.0, Basophils (%) (Auto) 0.2, Neutrophils # (Auto) 1.9, Lymphocytes # (Auto) 1.7, Monocytes # (Auto) 0.4, Eosinophils # (Auto) 0.0, Basophils # (Auto) 0.0, Reticulocyte # (auto) 90.3H, Nucleated Red Blood Cells % (auto) 0.0, Percent Reticulocyte Count 3.8H, Reticulocyte Hemoglobin Equivalent 44.1H, Anion Gap 10, Glomerular Filtration Rate > 60.0, Blood Urea Nitrogen 5L, Creatinine 0.60, Sodium Level 143, Potassium Level 3.5, Chloride Level 108H, Carbon Dioxide Level 25, Calcium Level 8.9, Aspartate Amino Transf (AST/SGOT) 18, Alanine Aminotransferase (ALT/SGPT) 19, Lactate Dehydrogenase 717H, Alkaline Phosphatase 57, Total Bilirubin 3.5H, Total Protein 6.6#, Albumin 3.9, Iron Level 62, Total Iron Binding Capacity 219L, Transferrin % Saturation 28.3, Ferritin 430H, Albumin/Globulin Ratio 1.44 CBC/BMP Laboratory Tests 12/09/18 05:04 Red Blood Count 2.39 L, Mean Corpuscular Volume 106.7 H, Mean Corpuscular Hemoglobin 38.5 H, Mean Corpuscular Hemoglobin Concent 36.1, Red Cell Distribution Width 20.6 H, Neutrophils (%) (Auto) 46.1, Lymphocytes (%) (Auto) 39.8, Monocytes (%) (Auto) 9.8 H, Eosinophils (%) (Auto) 1.0, Basophils (%) (Auto) 0.2, Neutrophils # (Auto) 1.9, Lymphocytes # (Auto) 1.7, Monocytes # (Auto) 0.4, Eosinophils # (Auto) 0.0, Basophils # (Auto) 0.0, Calcium Level 8.9, Aspartate Amino Transf (AST/SGOT) 18, Alanine Aminotransferase (ALT/SGPT) 19, Lactate Dehydrogenase 717 H, Alkaline Phosphatase 57, Total Bilirubin 3.5 H, Total Protein 6.6 #, Albumin 3.9 Microbiology Microbiology 12/06/18 Urine Culture - Final, Complete DWAINE SHAW MD Dec 09, 2018 15:07
[2018-12-09 20:00] VITALS: BP 121/83
[2018-12-09] MEDS: diphenhydrAMINE INJ 50MG/ML VIAL (J1200) IV PRN (20:00)
[2018-12-09 22:00] VITALS: BP 121/83
[2018-12-10 00:13] LABS: PARVOVIRUS B19 QUANT PCR Negative copies/mL (Negative)
[2018-12-10] MEDS ORDERED: diphenhydrAMINE INJ 50MG/ML VIAL (J1200) IV PRN (03:45)
[2018-12-10] MEDS ORDERED: HALOPERIDOL 5 MG/ML VIAL (J1630) IM ONE (04:30)
[2018-12-10] MEDS ORDERED: LORazepam 2 MG/ML VIAL (J2060) IV STA (04:37)
[2018-12-10] MEDS: LEVOTHYROXINE 25MCG TABLET (0.025MG) PO SCH (06:00)
[2018-12-10 06:28] LABS: BASO % 0.3 % (0.0-1.0); EOS % 1.2 % (0.0-3.0); HEMATOCRIT 26.2 % (36.0-47.0); HEMOGLOBIN 9.1 g/dl (12.0-15.5); LYMPH # 1.2 10^3/uL (1.5-5.0); LYMPH % 37.5 % (24.0-44.0); MEAN CORPUSCULAR HEMOGLOBIN 38.2 pg (27.0-33.0); MEAN CORPUSCULAR HGB CONC 34.7 g/dl (32.0-36.5); MEAN CORPUSCULAR VOLUME 110.1 fl (80.0-96.0); MONO # 0.5 10^3/uL (0.0-0.8); MONO % 15.8 % (0.0-5.0); NEUTROPHILS # 1.4 10^3/uL (1.5-8.5); NEUTROPHILS % 44.3 % (36.0-66.0); PLATELET COUNT, AUTOMATED 106 10^3/uL (150-450); RED BLOOD COUNT 2.38 10^6/uL (4.00-5.40); WHITE BLOOD COUNT 3.2 10^3/uL (4.0-10.0)
[2018-12-10 06:50] LABS: ALBUMIN 3.8 GM/DL (3.2-5.2); ALT/SGPT 21 U/L (12-78); BILIRUBIN,TOTAL 2.4 MG/DL (0.2-1.0); BLOOD UREA NITROGEN 7 MG/DL (7-18); CALCIUM LEVEL 8.8 MG/DL (8.5-10.1); CARBON DIOXIDE LEVEL 26 MEQ/L (21-32); CHLORIDE LEVEL 110 MEQ/L (98-107); CREATININE FOR GFR 0.75 MG/DL (0.55-1.30); GLOMERULAR FILTRATION RATE > 60.0 (>58); GLUCOSE, FASTING 80 MG/DL (70-100); LDH LACTATE DEHYDROGENASE 636 U/L (84-246); POTASSIUM SERUM 3.4 MEQ/L (3.5-5.1); SODIUM LEVEL 143 MEQ/L (136-145); TOTAL PROTEIN 6.6 GM/DL (6.4-8.2)
--- NOTE | 2018-12-10 09:21 | IPNPDOC ---
Subjective Date Seen The patient was seen on 12/10/18. Subjective Chief Complaint/HPI This morning seen sleeping in the couch comfortably when I woke her up she initially refused to be examined said she was doing ok . Wanted to know about her blood tests. yesterday evening she had a bladder scan which showed 800 cc so pisano was placed. She continues to be paranoid through out the night thinking the nurses are trying to harm her and take her away. After much reassurances she agreed to be examined but refused to get out of the couch. Objective Physical Examination General Exam: Positive: Alert, No Acute Distress Eye Exam: Positive: PERRLA, Conjunctiva & lids normal, EOMI, Sclera icteric ENT Exam: Positive: Atraumatic, Mucous membr. moist/pink, Pharynx Normal Neck Exam: Positive: Supple; Negative: JVD, thyromegaly Chest Exam: Positive: Clear to auscultation, Normal air movement Heart Exam: Positive: Rate Normal, Regular Rhythm, Normal S1, Normal S2; Negative: Murmurs, Rubs Telemetry: Positive: No significant arrhythmia Abdomen Exam: Positive: Normal bowel sounds, Soft, Tenderness (in the right upper quadrant); Negative: Hepatospenomegaly Extremity Exam: Positive: Normal pulses; Negative: Clubbing, Cyanosis, Edema Neuro Exam: Positive: Strength at 5/5 X4 ext, Normal Tone, Cranial Nerves 3-12 NL, Other (3+ DTRS in lower extremities, 2+ in upper extremities , no clonus) Psych Exam: Positive: Anxiety, Other (irritable with paranoia ) Assessment /Plan Assessment Ms. Geronimo is a 43-year-old female with a past medical history of hypothyroidism, DJD, rheumatoid arthritis ?, depression, iron deficiency anemia, and chronic lower back pain presented to the ED with worsening low back pain and multiple other complaints including paresthesias affecting feet, abdominal pain, palpitations, anorexia, shortness of breath, tinnitus affecting the left ear, cough, runny nose, sore throat, 1 episode of non bloody emesis a few days ago and unintentional 18 pound weight loss. She was found to be pancytopenic. Stool occult was positive. She was admitted for evaluation of pancytopenia. Confusion/ agitation/ irritability/paranoia/hallucination most possibly due to Neuropsychiatric manifestations of Vit B 12 deficiency thiamine level, copper level in progress. symptomatic management haldol and benadryl. Frequent reorientation, reassurance will get EEG and mri brain. Neuro consult sitter. Vitamin B12 deficiency due to pernicious anemia has high intrinsic factor antibodies. Cyanocobalamin 1000 mcg daily. Myelopathy--Subacute combined degeneration of spinal cord. Due to Vitamin B12 deficiency. appreciate Neuroconsult MRI of lumber spine and right hip negative for disc prolapse appreciate ortho input gabapentin tid pt/ot Acute urinary retention due to myelopathy. has indwelling pisano. will probably need to be discharged with pisano. Pancytopenia---Vit B12 deficiency hepatitis panel negative. Work up for parvovirus infection,flow cytometry in progress. No iron deficiency at present will repeat in 3 days. blood transfusion prn /follow up retic #, LDH daily. Intrinsic factor ordered. GI consulted for EGD and colonoscopy pateint refused at this time wants to do it as an outpatient. IM cyanocobalamin daily for 13 days, folic acid 2 mg daily. Menorrhagia Appreciate MANAGER OF REGULATORY AFFAIRS input. this could be due to pancytopenia as per sack sewer Once pancytopenia improves this should also resolve. to follow up in clinic Abdominal pain. resolved. has gall stone single one no CT evidence of acute cholecystitis. GB ultrasound showed Cholelithiasis with tenderness to scanning over the gallbladder. Large gallbladder stone. symptomatic management. Hemolytic anemia Indirect Hyperbilirubinemia with elevation of LDH, haptoglobin very low due to vit b 12 deficiency Hypothyroid continue Synthroid DVT prophylaxis with SCDs. Disposition pending clinical course Plan/VTE VTE Prophylaxis Ordered?: Yes VS, I&O, 24H, Fishbone Vital Signs/I&O Vital Signs Date Time Temp Pulse Resp B/P (MAP) Pulse Ox O2 Delivery O2 Flow Rate FiO2 12/09/18 22:00 98.5 92 17 121/83 (96) 99 12/05/18 22:10 Room Air I&O- Last 24 Hours up to 6 AM 12/10/18 06:00 Intake Total 500 ml Output Total 1800 ml Balance -1300 ml Laboratory Data 24H LABS Laboratory Tests 2 12/10/18 05:13: Immature Granulocyte % (Auto) 0.9, White Blood Count 3.2L, Red Blood Count 2.38L, Hemoglobin 9.1L, Hematocrit 26.2L, Mean Corpuscular Volume 110.1H, Mean Corpuscular Hemoglobin 38.2H, Mean Corpuscular Hemoglobin Concent 34.7, Red Cell Distribution Width 21.6H, Platelet Count 106L, Neutrophils (%) (Auto) 44.3, Lymphocytes (%) (Auto) 37.5, Monocytes (%) (Auto) 15.8H, Eosinophils (%) (Auto) 1.2, Basophils (%) (Auto) 0.3, Neutrophils # (Auto) 1.4L, Lymphocytes # (Auto) 1.2L, Monocytes # (Auto) 0.5, Eosinophils # (Auto) 0.0, Basophils # (Auto) 0.0, Reticulocyte # (auto) 208.0H, Nucleated Red Blood Cells % (auto) 0.0, Percent Reticulocyte Count 8.7H, Reticulocyte Hemoglobin Equivalent 40.7H, Anion Gap 7L, Glomerular Filtration Rate > 60.0, Blood Urea Nitrogen 7, Creatinine 0.75, Sodium Level 143, Potassium Level 3.4L, Chloride Level 110H, Carbon Dioxide Level 26, Calcium Level 8.8, Aspartate Amino Transf (AST/SGOT) 15, Alanine Ami notransferase (ALT/SGPT) 21, Lactate Dehydrogenase 636H, Alkaline Phosphatase 54, Total Bilirubin 2.4H, Total Protein 6.6, Albumin 3.8, Albumin/Globulin Ratio 1.36 CBC/BMP Laboratory Tests 12/10/18 05:13 Red Blood Count 2.38 L, Mean Corpuscular Volume 110.1 H, Mean Corpuscular Hemoglobin 38.2 H, Mean Corpuscular Hemoglobin Concent 34.7, Red Cell Distribution Width 21.6 H, Neutrophils (%) (Auto) 44.3, Lymphocytes (%) (Auto) 37.5, Monocytes (%) (Auto) 15.8 H, Eosinophils (%) (Auto) 1.2, Basophils (%) (Auto) 0.3, Neutrophils # (Auto) 1.4 L, Lymphocytes # (Auto) 1.2 L, Monocytes # (Auto) 0.5, Eosinophils # (Auto) 0.0, Basophils # (Auto) 0.0, Calcium Level 8.8, Aspartate Amino Transf (AST/SGOT) 15, Alanine Aminotransferase (ALT/SGPT) 21, Lactate Dehydrogenase 636 H, Alkaline Phosphatase 54, Total Bilirubin 2.4 H, Total Protein 6.6, Albumin 3.8 Microbiology Microbiology 12/06/18 Urine Culture - Final, Complete DWAINE SHAW MD Dec 10, 2018 09:21
--- NOTE | 2018-12-10 10:01 | ECGEPIP ---
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
[2018-12-10] MEDS: MIRALAX *UNIT DOSE* 17GM PACKET PO SCH (10:02)
[2018-12-10] MEDS: CYANOCOBALAMIN 1,000 MCG/ML VIAL (J3420) IM SCH (10:02)
[2018-12-10] MEDS: GABAPENTIN 100 MG CAP PO SCH ×3 (10:03→21:34)
[2018-12-10] MEDS: FERROUS GLUCONATE 324 MG TAB PO SCH (10:03)
[2018-12-10] MEDS: ASCORBIC ACID 500 MG TAB PO SCH ×2 (10:03→21:34)
[2018-12-10] MEDS: SENOKOT S TAB PO SCH ×2 (10:03→21:00)
[2018-12-10] MEDS: SERTRALINE HCL 50 MG TAB PO SCH ×2 (10:03→21:35)
[2018-12-10] MEDS: POTASSIUM CHLORIDE 10 MEQ SR TABLET PO SCH (10:03)
[2018-12-10] MEDS: FOLIC ACID 1 MG TAB PO SCH (12:44)
[2018-12-10 14:00] VITALS: BP 127/86
[2018-12-10 20:00] VITALS: BP 144/91
[2018-12-11] MEDS: ACETAMINOPHEN 500 MG TAB PO PRN ×2 (05:57→18:13)
[2018-12-11] MEDS: LEVOTHYROXINE 25MCG TABLET (0.025MG) PO SCH (05:57)
[2018-12-11 06:00] VITALS: BP 135/69
[2018-12-11 06:27] LABS: BASO % 0.3 % (0.0-1.0); EOS % 1.4 % (0.0-3.0); HEMOGLOBIN 9.3 g/dl (12.0-15.5); LYMPH # 1.1 10^3/uL (1.5-5.0); LYMPH % 38.2 % (24.0-44.0); MEAN CORPUSCULAR HEMOGLOBIN 38.8 pg (27.0-33.0); MEAN CORPUSCULAR HGB CONC 34.4 g/dl (32.0-36.5); MEAN CORPUSCULAR VOLUME 112.5 fl (80.0-96.0); MONO # 0.4 10^3/uL (0.0-0.8); MONO % 14.5 % (0.0-5.0); NEUTROPHILS # 1.3 10^3/uL (1.5-8.5); NEUTROPHILS % 43.9 % (36.0-66.0); PLATELET COUNT, AUTOMATED 100 10^3/uL (150-450)
[2018-12-11 06:58] LABS: ALBUMIN 3.6 GM/DL (3.2-5.2); ALT/SGPT 25 U/L (12-78); BILIRUBIN,TOTAL 1.9 MG/DL (0.2-1.0); BLOOD UREA NITROGEN 8 MG/DL (7-18); CALCIUM LEVEL 8.3 MG/DL (8.5-10.1); CARBON DIOXIDE LEVEL 30 MEQ/L (21-32); CHLORIDE LEVEL 108 MEQ/L (98-107); CREATININE FOR GFR 0.77 MG/DL (0.55-1.30); GLOMERULAR FILTRATION RATE > 60.0 (>58); GLUCOSE, FASTING 99 MG/DL (70-100); LDH LACTATE DEHYDROGENASE 529 U/L (84-246); POTASSIUM SERUM 4.3 MEQ/L (3.5-5.1); SODIUM LEVEL 141 MEQ/L (136-145); TOTAL PROTEIN 5.8 GM/DL (6.4-8.2)
[2018-12-11] MEDS: ASCORBIC ACID 500 MG TAB PO SCH ×2 (08:26→20:45)
[2018-12-11] MEDS: CYANOCOBALAMIN 1,000 MCG/ML VIAL (J3420) IM SCH (08:26)
[2018-12-11] MEDS: POTASSIUM CHLORIDE 10 MEQ SR TABLET PO SCH (08:27)
[2018-12-11] MEDS: SERTRALINE HCL 50 MG TAB PO SCH ×2 (08:27→20:45)
[2018-12-11] MEDS: MIRALAX *UNIT DOSE* 17GM PACKET PO SCH (08:27)
[2018-12-11] MEDS: GABAPENTIN 100 MG CAP PO SCH ×3 (08:27→20:45)
[2018-12-11] MEDS: FERROUS GLUCONATE 324 MG TAB PO SCH (08:27)
[2018-12-11] MEDS: SENOKOT S TAB PO SCH ×2 (08:27→20:45)
--- NOTE | 2018-12-11 11:01 | IPNPDOC ---
Subjective Date Seen The patient was seen on 12/11/18. Subjective Chief Complaint/HPI Patient is looking much better today, she is cooperative and focussed , no paranoia no hallucinations. Was able to order her own breakfast and could use the phone by herself. I discussed about getting the cervical MRI and she is agreeable to do it. She agreed that she is going to ask for an anti anxiety medication before the test if she needs one. Objective Physical Examination General Exam: Positive: Alert, Cooperative, No Acute Distress Eye Exam: Positive: PERRLA, Conjunctiva & lids normal, EOMI, Sclera icteric ENT Exam: Positive: Atraumatic, Mucous membr. moist/pink, Pharynx Normal Neck Exam: Positive: Supple; Negative: JVD, thyromegaly Chest Exam: Positive: Clear to auscultation, Normal air movement Heart Exam: Positive: Rate Normal, Regular Rhythm, Normal S1, Normal S2; Negative: Murmurs, Rubs Telemetry: Positive: No significant arrhythmia Abdomen Exam: Positive: Normal bowel sounds, Soft, Tenderness (in the right upper quadrant); Negative: Hepatospenomegaly Extremity Exam: Positive: Normal pulses; Negative: Clubbing, Cyanosis, Edema Neuro Exam: Positive: Strength at 5/5 X4 ext, Normal Tone, Cranial Nerves 3-12 NL, Other Psych Exam: Positive: Anxiety Assessment /Plan Assessment Ms. Geronimo is a 43-year-old female with a past medical history of hypothyroidism, DJD, rheumatoid arthritis ?, depression, iron deficiency anemia, and chronic lower back pain presented to the ED with worsening low back pain and multiple other complaints including paresthesias affecting feet, abdominal pain, palpitations, anorexia, shortness of breath, tinnitus affecting the left ear, cough, runny nose, sore throat, 1 episode of non bloody emesis a few days ago and unintentional 18 pound weight loss. She was found to be pancytopenic. Stool occult was positive. She was admitted for evaluation of pancytopenia. Confusion/ agitation/ irritability/paranoia/hallucination almost resolved. most possibly due to Neuropsychiatric manifestations of Vit B 12 deficiency thiamine level, copper level in progress. symptomatic management haldol and benadryl. Frequent reorientation, reassurance MRI brain normal will get EEG once off haldol. Neuro consult appreciated. sitter. Vitamin B12 deficiency due to pernicious anemia has high intrinsic factor antibodies. Cyanocobalamin 1000 mcg daily. Myelopathy--Subacute combined degeneration of spinal cord. Due to Vitamin B12 deficiency. appreciate Neuroconsult will get cervical and thoracic spine MRI MRI of lumber spine and right hip negative for disc prolapse appreciate ortho input gabapentin tid pt/ot Acute urinary retention due to myelopathy. has indwelling pisano. will probably need to be discharged with pisano. Pancytopenia---Vit B12 deficiency hepatitis panel negative. Work up for parvovirus infection,flow cytometry in progress. No iron deficiency at present will repeat in 3 days. blood transfusion prn /follow up retic #, LDH daily. Intrinsic factor ordered. GI consulted for EGD and colonoscopy pateint refused at this time wants to do it as an outpatient. IM cyanocobalamin daily for 13 days, folic acid 2 mg daily. Menorrhagia Appreciate STOCK TURNER input. this could be due to pancytopenia as per property insurance claims examiner Once pancytopenia improves this should also resolve. to follow up in clinic Abdominal pain. resolved. has gall stone single one no CT evidence of acute cholecystitis. GB ultrasound showed Cholelithiasis with tenderness to scanning over the gallbladder. Large gallbladder stone. symptomatic management. Hemolytic anemia Indirect Hyperbilirubinemia with elevation of LDH, haptoglobin very low due to vit b 12 deficiency Hypothyroid continue Synthroid DVT prophylaxis with SCDs. Disposition pending clinical course Plan/VTE VTE Prophylaxis Ordered?: Yes VS, I&O, 24H, Fishbone Vital Signs/I&O Vital Signs Date Time Temp Pulse Resp B/P (MAP) Pulse Ox O2 Delivery O2 Flow Rate FiO2 12/11/18 06:00 98.1 68 16 135/69 (91) 98 12/05/18 22:10 Room Air I&O- Last 24 Hours up to 6 AM 12/11/18 06:00 Intake Total 480 ml Output Total 1450 ml Balance -970 ml Laboratory Data 24H LABS Laboratory Tests 2 12/11/18 06:10: Immature Granulocyte % (Auto) 1.7, White Blood Count 3.0L, Red Blood Count 2.40L, Hemoglobin 9.3L, Hematocrit 27.0L, Mean Corpuscular Volume 112.5H, Mean Corpuscular Hemoglobin 38.8H, Mean Corpuscular Hemoglobin Concent 34.4, Red Cell Distribution Width 20.3H, Platelet Count 100L, Neutrophils (%) (Auto) 43.9, Lymphocytes (%) (Auto) 38.2, Monocytes (%) (Auto) 14.5H, Eosinophils (%) (Auto) 1.4, Basophils (%) (Auto) 0.3, Neutrophils # (Auto) 1.3L, Lymphocytes # (Auto) 1.1L, Monocytes # (Auto) 0.4, Eosinophils # (Auto) 0.0, Basophils # (Auto) 0.0, Reticulocyte # (auto) 301.4H, Nucleated Red Blood Cells % (auto) 0.0, Percent Reticulocyte Count 12.6H, Reticulocyte Hemoglobin Equivalent 37.9H, Anion Gap 3L, Glomerular Filtration Rate > 60.0, Blood Urea Nitrogen 8, Creatinine 0.77, Sodium Level 141, Potassium Level 4.3#, Chloride Level 108H, Carbon Dioxide Level 30, Calcium Level 8.3L, Aspartate Amino Transf (AST/SGOT) 22, Alanine Am inotransferase (ALT/SGPT) 25, Lactate Dehydrogenase 529H, Alkaline Phosphatase 50, Total Bilirubin 1.9H, Total Protein 5.8L, Albumin 3.6, Albumin/Globulin Ratio 1.64 CBC/BMP Laboratory Tests 12/11/18 06:10 Red Blood Count 2.40 L, Mean Corpuscular Volume 112.5 H, Mean Corpuscular Hemoglobin 38.8 H, Mean Corpuscular Hemoglobin Concent 34.4, Red Cell Distribution Width 20.3 H, Neutrophils (%) (Auto) 43.9, Lymphocytes (%) (Auto) 38.2, Monocytes (%) (Auto) 14.5 H, Eosinophils (%) (Auto) 1.4, Basophils (%) (Auto) 0.3, Neutrophils # (Auto) 1.3 L, Lymphocytes # (Auto) 1.1 L, Monocytes # (Auto) 0.4, Eosinophils # (Auto) 0.0, Basophils # (Auto) 0.0, Calcium Level 8.3 L, Aspartate Amino Transf (AST/SGOT) 22, Alanine Aminotransferase (ALT/SGPT) 25, Lactate Dehydrogenase 529 H, Alkaline Phosphatase 50, Total Bilirubin 1.9 H, Total Protein 5.8 L, Albumin 3.6 Microbiology Microbiology 12/06/18 Urine Culture - Final, Complete RAYDWAINE MD Dec 11, 2018 11:01
[2018-12-11] MEDS: FOLIC ACID 1 MG TAB PO SCH (13:44)
[2018-12-11 14:00] VITALS: BP 136/72
[2018-12-11 22:00] VITALS: BP 132/74
--- NOTE | 2018-12-11 22:10 | ECGEPIP ---
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 HEART RATE WAS SLIGHTLY FASTER Electronically Signed on 12-11-2018 22:09:52 EDT by Jamie Donohue
[2018-12-12 05:59] LABS: ALBUMIN 3.3 GM/DL (3.2-5.2); ALT/SGPT 24 U/L (12-78); BILIRUBIN,TOTAL 1.3 MG/DL (0.2-1.0); BLOOD UREA NITROGEN 11 MG/DL (7-18); CALCIUM LEVEL 8.4 MG/DL (8.5-10.1); CARBON DIOXIDE LEVEL 30 MEQ/L (21-32); CHLORIDE LEVEL 109 MEQ/L (98-107); CREATININE FOR GFR 0.73 MG/DL (0.55-1.30); GLOMERULAR FILTRATION RATE > 60.0 (>58); GLUCOSE, FASTING 97 MG/DL (70-100); LDH LACTATE DEHYDROGENASE 406 U/L (84-246); POTASSIUM SERUM 4.5 MEQ/L (3.5-5.1); SODIUM LEVEL 142 MEQ/L (136-145); TOTAL PROTEIN 5.8 GM/DL (6.4-8.2)
[2018-12-12 06:00] VITALS: BP 114/61
[2018-12-12 06:12] LABS: BASO % 0.6 % (0.0-1.0); EOS # 0.1 10^3/uL (0.0-0.5); EOS % 1.6 % (0.0-3.0); HEMATOCRIT 28.2 % (36.0-47.0); HEMOGLOBIN 9.3 g/dl (12.0-15.5); LYMPH # 1.3 10^3/uL (1.5-5.0); MEAN CORPUSCULAR HEMOGLOBIN 37.2 pg (27.0-33.0); MEAN CORPUSCULAR VOLUME 112.8 fl (80.0-96.0); MONO # 0.5 10^3/uL (0.0-0.8); MONO % 15.1 % (0.0-5.0); NEUTROPHILS # 1.3 10^3/uL (1.5-8.5); NEUTROPHILS % 39.4 % (36.0-66.0); PLATELET COUNT, AUTOMATED 119 10^3/uL (150-450); WHITE BLOOD COUNT 3.2 10^3/uL (4.0-10.0)
[2018-12-12] MEDS: LEVOTHYROXINE 25MCG TABLET (0.025MG) PO SCH (07:50)
--- NOTE | 2018-12-12 08:37 | REP ---
MRI thoracic spine without contrast: Repeat dictation. History: Myelopathy. Vitamin B12 deficiency. Preliminary report is provided at the time of examination by Matty Hein. Technique: Sagittal and axial T1 and T2-weighted scans are acquired in the usual fashion with and without fat saturation. Sequences include spin echo, turbo spin-echo, and STIR imaging sequences. MRI findings: Thoracic vertebral body heights are preserved. Alignment is normal. Cortical and medullary bone signal intensity are normal. No bony destructive lesion is seen. The thoracic cord is normal in coarse, caliber and signal intensity on T1 and T2-weighted scans. The tip of the conus medullaris is normal in position and appearance at T12. No thoracic cord compression or intrinsic lesion is appreciated. No thoracic disc herniation is seen. Impression: Unremarkable thoracic spine MRI study. Electronically Signed by Jamal Geronimo MD 12/12/2018 09:44 A
--- NOTE | 2018-12-12 08:51 | REP ---
MRI cervical spine without contrast: Repeat dictation. History: Myelopathy. Vitamin B12 deficiency. Preliminary report is provided at the time examination by Matty PATHAK. No comparison study. Technique: Sagittal and axial T1 and T2-weighted scans are acquired in the usual fashion with and without fat saturation. Sequences include spin echo, turbo spin-echo, and STIR imaging sequences. MRI findings: There is straightening and slight reversal of the normal cervical lordosis. Cervical vertebral body heights are preserved. Alignment is otherwise normal. Cortical and medullary bone signal intensity are normal. Cervical cord is normal in coarse, caliber and signal intensity on T1 and T2-weighted scans. Craniocervical junction is unremarkable. There is a left posterior disc bulge or protrusion with associated uncovertebral spurring at the C5-6 level producing neural foraminal narrowing. No other focal disc protrusion is seen. There is no evidence of central canal stenosis. Facets are normally aligned. No extra spinal abnormalities observed. Impression: Straightening and reversal of the normal cervical lordosis. Left posterior disc protrusion with associated uncovertebral spurring producing foraminal narrowing at C5-6. No abnormal cord signal. No cord compression seen. Electronically Signed by Jamal Geronimo MD 12/12/2018 09:45 A
[2018-12-12] MEDS ORDERED: HALOPERIDOL 2 MG TAB PO SCH ×2 (09:00→21:00)
[2018-12-12] MEDS: GABAPENTIN 100 MG CAP PO SCH ×3 (09:00→21:11)
[2018-12-12] MEDS: POTASSIUM CHLORIDE 10 MEQ SR TABLET PO SCH (09:12)
[2018-12-12] MEDS: FERROUS GLUCONATE 324 MG TAB PO SCH (09:12)
[2018-12-12] MEDS: SERTRALINE HCL 50 MG TAB PO SCH (09:12)
[2018-12-12] MEDS: ASCORBIC ACID 500 MG TAB PO SCH ×2 (09:12→21:10)
[2018-12-12] MEDS: CYANOCOBALAMIN 1,000 MCG/ML VIAL (J3420) IM SCH (09:13)
[2018-12-12] MEDS: MIRALAX *UNIT DOSE* 17GM PACKET PO SCH (09:13)
[2018-12-12] MEDS: SENOKOT S TAB PO SCH ×2 (09:13→21:11)
[2018-12-12] MEDS: FOLIC ACID 1 MG TAB PO SCH (11:29)
[2018-12-12 14:00] VITALS: BP 112/63
--- NOTE | 2018-12-12 14:53 | IPNPDOC ---
Subjective Date Seen The patient was seen on 12/12/18. Subjective Chief Complaint/HPI Again had episode of paranoia last night when she was very load and accusing staff of trying to kill her or take her away. this morning more calm but wants to sign out AMA. As per PT poor balance and poor gait with scissoring will need STR. Good appetite. I spoke with case management. if she continues to have behavioral issues no NH will accept her. Will consult Psychiatry. No fever or chills. She wants to leave AMA which she cannot at this time as she is unsafe. Her family is trying to reason with her. She did tell me if she needs to go to rehab she was willing to go to [facility] for rehab. Good appetite infact as per nurses eating a lot. No fever or chills, no abdominal pain , nausea or vomiting or diarrhea. Objective Physical Examination General Exam: Positive: Alert, Cooperative, No Acute Distress Eye Exam: Positive: PERRLA, Conjunctiva & lids normal, EOMI, Sclera icteric ENT Exam: Positive: Atraumatic, Mucous membr. moist/pink, Pharynx Normal Neck Exam: Positive: Supple; Negative: JVD, thyromegaly Chest Exam: Positive: Clear to auscultation, Normal air movement Heart Exam: Positive: Rate Normal, Regular Rhythm, Normal S1, Normal S2; Negative: Murmurs, Rubs Telemetry: Positive: No significant arrhythmia Abdomen Exam: Positive: Normal bowel sounds, Soft, Tenderness (in the right upper quadrant); Negative: Hepatospenomegaly Extremity Exam: Positive: Normal pulses; Negative: Clubbing, Cyanosis, Edema Neuro Exam: Positive: Strength at 5/5 X4 ext, Normal Tone, Cranial Nerves 3-12 NL, Other Psych Exam: Positive: Anxiety Assessment /Plan Assessment Ms. Geronimo is a 43-year-old female with a past medical history of hypothyroidism, DJD, rheumatoid arthritis ?, depression, iron deficiency anemia, and chronic lower back pain presented to the ED with worsening low back pain and multiple other complaints including paresthesias affecting feet, abdominal pain, palpitations, anorexia, shortness of breath, tinnitus affecting the left ear, cough, runny nose, sore throat, 1 episode of non bloody emesis a few days ago and unintentional 18 pound weight loss. She was found to be pancytopenic. Stool occult was positive. She was admitted for evaluation of pancytopenia. Confusion/ agitation/ irritability/paranoia/hallucination most possibly due to Neuropsychiatric manifestations of Vit B 12 deficiency thiamine level, copper level in progress. symptomatic management haldol and benadryl. Frequent reorientation, reassurance MRI brain normal will get EEG once off haldol. Neuro consult appreciated. sitter. psych consult Vitamin B12 deficiency due to pernicious anemia has high intrinsic factor antibodies. Cyanocobalamin 1000 mcg daily. Myelopathy--Subacute combined degeneration of spinal cord. Due to Vitamin B12 deficiency. appreciate Neuroconsult will get cervical and thoracic spine MRI MRI of lumber spine and right hip negative for disc prolapse appreciate ortho input gabapentin tid pt/ot Acute urinary retention due to myelopathy. has indwelling pisano. will probably need to be discharged with pisano. Pancytopenia---Vit B12 deficiency improving hepatitis panel negative. parvovirus negative. ,flow cytometry negative suggestive of megaloblastic anemia. No iron deficiency at present blood transfusion prn /follow up retic #, LDH daily. improving. Intrinsic factor antibody elevated. GI consulted for EGD and colonoscopy patient refused at this time wants to do it as an outpatient. IM cyanocobalamin daily for 13 days, folic acid 2 mg daily. Menorrhagia Appreciate EXTRACORPOREAL TECHNICIAN input. this could be due to pancytopenia as per negative stripper Once pancytopenia improves this should also resolve. to follow up in clinic Abdominal pain. resolved. has gall stone single one no CT evidence of acute cholecystitis. GB ultrasound showed Cholelithiasis with tenderness to scanning over the gallbladder. Large gallbladder stone. symptomatic management. Hemolytic anemia Indirect Hyperbilirubinemia with elevation of LDH, haptoglobin very low due to vit b 12 deficiency Hypothyroid continue Synthroid DVT prophylaxis with SCDs. Disposition pending clinical course Plan/VTE VTE Prophylaxis Ordered?: Yes VS, I&O, 24H, Toddbone Vital Signs/I&O Vital Signs Date Time Temp Pulse Resp B/P (MAP) Pulse Ox O2 Delivery O2 Flow Rate FiO2 12/12/18 06:00 97.0 61 18 114/61 (78) 96 I&O- Last 24 Hours up to 6 AM 12/12/18 06:00 Intake Total 1350 ml Output Total 1550 ml Balance -200 ml Laboratory Data 24H LABS Laboratory Tests 2 12/12/18 05:23: Immature Granulocyte % (Auto) 1.3, White Blood Count 3.2L, Red Blood Count 2.50L, Hemoglobin 9.3L, Hematocrit 28.2L, Mean Corpuscular Volume 112.8H, Mean Corpuscular Hemoglobin 37.2H, Mean Corpuscular Hemoglobin Concent 33.0, Red Cell Distribution Width 20.0H, Platelet Count 119L, Neutrophils (%) (Auto) 39.4, Lymphocytes (%) (Auto) 42.0, Monocytes (%) (Auto) 15.1H, Eosinophils (%) (Auto) 1.6, Basophils (%) (Auto) 0.6, Neutrophils # (Auto) 1.3L, Lymphocytes # (Auto) 1.3L, Monocytes # (Auto) 0.5, Eosinophils # (Auto) 0.1, Basophils # (Auto) 0.0, Reticulocyte # (auto) 312.0H, Nucleated Red Blood Cells % (auto) 0.0, Percent Reticulocyte Count 12.5H, Reticulocyte Hemoglobin Equivalent 34.3, Anion Gap 3L, Glomerular Filtration Rate > 60.0, Blood Urea Nitrogen 11, Creatinine 0.73, Sodium Level 142, Potassium Level 4.5, Chloride Level 109H, Carbon Dioxide Level 30, Calcium Level 8.4L, Aspartate Amino Transf (AST/SGOT) 11, Alanine Aminotransferase (ALT/SGPT) 24, Lactate Dehydrogenase 406H, Alkaline Phosphatase 43L, Total Bilirubin 1.3H, Total Protein 5.8L, Albumin 3.3, Albumin/Globulin Ratio 1.32 CBC/BMP Laboratory Tests 12/12/18 05:23 Red Blood Count 2.50 L, Mean Corpuscular Volume 112.8 H, Mean Corpuscular Hemoglobin 37.2 H, Mean Corpuscular Hemoglobin Concent 33.0, Red Cell Distribution Width 20.0 H, Neutrophils (%) (Auto) 39.4, Lymphocytes (%) (Auto) 42.0, Monocytes (%) (Auto) 15.1 H, Eosinophils (%) (Auto) 1.6, Basophils (%) (Auto) 0.6, Neutrophils # (Auto) 1.3 L, Lymphocytes # (Auto) 1.3 L, Monocytes # (Auto) 0.5, Eosinophils # (Auto) 0.1, Basophils # (Auto) 0.0, Calcium Level 8.4 L, Aspartate Amino Transf (AST/SGOT) 11, Alanine Aminotransferase (ALT/SGPT) 24, Lactate Dehydrogenase 406 H, Alkaline Phosphatase 43 L, Total Bilirubin 1.3 H, Total Protein 5.8 L, Albumin 3.3 Microbiology Microbiology 12/06/18 Urine Culture - Final, Complete RAYDWAINE MD Dec 12, 2018 14:53
[2018-12-12] MEDS: ACETAMINOPHEN 500 MG TAB PO PRN (16:27)
--- NOTE | 2018-12-12 21:06 | MHCRPDOC ---
[facility] Consultation Consultation DATE OF CONSULTATION: 12/12/18 CONSULTATION REQUESTED BY: Dr. Johana Gilliam REASON FOR CONSULTATION: Patient has been paranoid and her condition seems to be worse during the evening. RELEVANT HISTORY: As per previous notes: "HISTORY OF PRESENT ILLNESS: This is a 43-year-old female who presents with complaints of lower back pain that radiates to her, her feet for few months. Associated symptoms include paresthesias affecting feet, abdominal pain, palpitations, anorexia, shortness of breath, tinnitus affecting the left ear, cough, runny nose, sore throat, 1 episode of nonbloody emesis a few days ago and unintentional 18 pound weight loss. Her family reports that she looks more pale and jaundice than usual. She denies falling, denies having urinary incontinence, denies having fevers or chills, and denies having chest pain. She reports that her menses are heavy and ended about a week ago. Per discussion with the ED provider her WBCs, hemoglobin, and platelets were all low. Due to the complaints of abdominal pain, a CT scan was done which was unremarkable. Stool occult was positive. Type and screen has been done and PRBCs have been ordered." INTERVAL HISTORY: Dr. Gilliam mentioned today that the patient has been become increasingly paranoid, as per family members. This afternoon/evening as I was speaking with her Nurse, she tells me that she definitely gets worse at night, she told a staff member yesterday that she would slit her throat because she feels "trapped in here". she feels that the Nurses and the rest of the staff are against her. She, apparently was very belligerent shortly after lunch, she had received 2 mgs of Haldol about 2 hours previous to this episode. She has been receiving Haldol IV (2.5 mgs) on previous days and she has never experienced side effects. 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 PAST SURGICAL HISTORY: Tonsillectomy, adenoidectomy and ." FAMILY HISTORY: I was able to speak with the patient and she reported feeling concerned because her father is hospitalized in [facility] and she wants to be transferred there because she would be close to him. She mentioned that she has a son that wnet to [place] (it's been 3 months) and she has a middle son who is an "a...le", an ex who is a " f......herbk", her 13 year old daughter and she worries about her, a bout leaving her alone if her health would tae a turn for the worse. She was not able to tell what is her son doing in [place]. At times she seems to be confabulating. She denies family history of mental illness. PERSONAL AND SOCIAL HISTORY: The patient was born and raised in [place]. Resides in: [place] Marital Status: M Children: 3 children. Employment: Unemployed SUBSTANCE ABUSE HISTORY: Denies LEGAL HISTORY: Denies MENTAL STATUS EXAMINATION: Patient is a 43-year old female, who is is alert, mildly cooperative, laying in bed, wearing hospital clothes. Her daughter and her sitter were present during the interview. she didn't want her sitter to leave the room when I came to interview her. She looks tired. Speech is repetitive at times, redundant on the same subject. She's not circumstantial, not tangential but at times, she has difficulty expressing her thoughts or fully comprehending what is being said to her, as if she would have problems processing her thoughts. Language skills are fair. Thought processes including: she presents with some disorganized thoughts, it's hard for her to process what is being said to her, she seems to have thought blocking at times.. Thought content: She adamantly denies SI/HI, thought delusions, but admits to feel unhappy at the hospital, she says she is angry nad has had angry thoughts. she says she said she would slit her throat because she was angry but that she would never commit suicide because she has her 13 year old daughter, her mother, her father and her husand to live for. Abstract reasoning, and computation: Limited at this time, she has problems with attention and concentration Description of associations: Fair Description of abnormal or psychotic thoughts: she seems paranoid, she is suspicious, she is not responding to internal stimuli, she denies t/A/V hallucinations. Judgment: poor. Insight: poor. Orientation to to place, person but not to date or time. she knows she came to the Hospital on December 05 and she knows this is the month of November but she doesn't know exactly what day is today. Recent and remote memory: Poor. Her short term memory is not good at this time. Attention span and concentration: poor. Language: no abnormalities, impediments detected. Fund of knowledge: not assessed at this time, patient has memory and attention problems. Mood: angry, irritable, anxious. Affect: Congruent with mood DIAGNOSIS: 1. 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 PLAN: 1. Increase Haloperidol to 2 mgs PO QID for agitation/paranoia/psychosis 2. Start Benadryl 25 mgs PO BIDP for EPS ( she's already on this medication Q6HP IV, she could receive it PO if she would be cooperative) 3. continue current Zoloft dose. 4. Continue with current medical treatment for vitamin B 12 deficiency, 5. Continue 1:1 observation (sitter) for mood/behavioral changes or psychosis. COMMENTS: Patient's daughter said her mother ae only peanut butter and jelly sandwiches for a long time, the patient said she ate that for about a month and she said her appetite was low, she says is because she was stressed out, her son had just left to [facility]. She mentioned she has been treated by her PCP for depression and anxiety but she couldn't give me the name f her Doctor, only that it was her PCP. she denied other psychiatric medications and substance abuse. She is angry, very irritable, she is confabulating, her thought processing is not good at this time, she doesn't understand certain things and she quickly forgets what has been said to her. She is insistent, she wants to be transferred to [facility] because her father, she says, is hospitalized there and she fears that something might happen to him and she won't be able to see him anymore. She is very suspicious/paranoid but she was able to tolerate my presence and she told me that "i"m good tonight, believe me". She needs to continue on a 1:1, she adamantly is denyiang SI/HI but her thoughts are disorganized, she is paranoid, her insight and judgment are poor. Time Spent: 40 minutes Vital Signs Vital Signs Date Time Temp Pulse Resp B/P (MAP) Pulse Ox O2 Delivery O2 Flow Rate FiO2 12/12/18 14:00 98.2 65 18 112/63 (79) 96 Laboratory Data 24H Labs Laboratory Tests 2 12/12/18 05:23: Immature Granulocyte % (Auto) 1.3, White Blood Count 3.2L, Red Blood Count 2.50L, Hemoglobin 9.3L, Hematocrit 28.2L, Mean Corpuscular Volume 112.8H, Mean Corpuscular Hemoglobin 37.2H, Mean Corpuscular Hemoglobin Concent 33.0, Red Cell Distribution Width 20.0H, Platelet Count 119L, Neutrophils (%) (Auto) 39.4, Lymphocytes (%) (Auto) 42.0, Monocytes (%) (Auto) 15.1H, Eosinophils (%) (Auto) 1.6, Basophils (%) (Auto) 0.6, Neutrophils # (Auto) 1.3L, Lymphocytes # (Auto) 1.3L, Monocytes # (Auto) 0.5, Eosinophils # (Auto) 0.1, Basophils # (Auto) 0.0, Reticulocyte # (auto) 312.0H, Nucleated Red Blood Cells % (auto) 0.0, Percent Reticulocyte Count 12.5H, Reticulocyte Hemoglobin Equivalent 34.3, Anion Gap 3L, Glomerular Filtration Rate > 60.0, Blood Urea Nitrogen 11, Creatinine 0.73, Sodium Level 142, Potassium Level 4.5, Chloride Level 109H, Carbon Dioxide Level 30, Calcium Level 8.4L, Aspartate Amino Transf (AST/SGOT) 11, Alanine Aminotransferase (ALT/SGPT) 24, Lactate Dehydrogenase 406H, Alkaline Phosphatase 43L, Total Bilirubin 1.3H, Total Protein 5.8L, Albumin 3.3, Albumin/Globulin Ratio 1.32 Home Medications Current Medications Current Medications Medications (Trade) Dose Ordered Sig/David Route PRN Reason Start Time Stop Time Status Last Admin Dose Admin Acetaminophen (Tylenol Tab) 650 mg Q8HP PRN PO PAIN / FEVER 12/06/18 00:15 12/06/18 15:05 DC 12/06/18 13:27 Acetaminophen (Tylenol Tab) 1,000 mg Q8HP PRN PO PAIN / FEVER 12/06/18 21:00 12/06/18 22:16 DC Acetaminophen (Tylenol Tab) 1,000 mg Q8HP PRN PO PAIN / FEVER 12/06/18 22:30 12/12/18 16:27 Albuterol Sulfate (Proventil, Ventolin Hfa) 2 puff Q6HP PRN INH wheezing 12/06/18 01:15 Ascorbic Acid (Vitamin C) 500 mg BID PO 12/05/18 21:00 12/12/18 09:12 Calcium Carbonate (Tums) 1,000 mg Q6HP PRN PO indigestion 12/05/18 22:45 Cyanocobalamin (Vitamin B12 Injection) 1,000 mcg DAILY IM 12/06/18 15:00 12/19/18 14:59 12/12/18 09:13 Diphenhydramine HCl (Benadryl) 25 mg Q12HP PRN IV Itching agitation restlessnes 12/07/18 18:45 12/10/18 03:40 DC 12/09/18 20:00 Diphenhydramine HCl (Benadryl) 25 mg Q6HP PRN IV Itching agitation restlessnes 12/10/18 03:45 12/11/18 19:44 Ferrous Gluconate (Fergon) 324 mg DAILY PO 12/07/18 09:00 12/12/18 09:12 Ferrous Sulfate (Ferrous Sulfate) 325 mg DAILY PO 12/06/18 09:00 12/07/18 09:27 DC 12/06/18 08:03 Folic Acid (Folic Acid) 2 mg DAILY PO 12/06/18 15:00 12/07/18 10:17 DC 12/07/18 09:29 Folic Acid (Folic Acid) 2 mg DAILY PO 12/07/18 09:00 12/06/18 14:40 DC Folic Acid (Folic Acid) 2 mg DAILY@1200 PO 12/08/18 12:00 12/12/18 11:29 Gabapentin (Neurontin) 100 mg DAILY PO 12/06/18 09:00 12/06/18 14:40 DC 12/06/18 08:03 Gabapentin (Neurontin) 100 mg TID PO 12/06/18 16:00 12/12/18 16:26 Haloperidol (Haldol) 2 mg BID PO 12/12/18 09:00 12/12/18 11:29 Haloperidol (Haldol) 2 mg BID PO 12/12/18 21:00 12/12/18 10:14 DC Haloperidol (Haldol) 2.5 mg Q12HP PRN IV AGITATION 12/07/18 18:45 12/08/18 03:49 DC 12/07/18 18:55 Haloperidol (Haldol) 2.5 mg Q8HP PRN IV AGITATION 12/08/18 04:00 12/08/18 04:03 Home Med (Med Rec Complete!) ASDIRECTED XX 12/05/18 21:45 12/05/18 21:35 DC Levothyroxine Sodium (Synthroid) 25 mcg DAILY@0600 PO 12/06/18 06:00 12/12/18 07:50 Lorazepam (Ativan) 2 mg STAT STAT IV 12/10/18 04:37 12/10/18 04:38 DC 12/10/18 04:46 Omeprazole (PriLOSEC) 40 mg DAILY PO 12/06/18 09:00 12/08/18 06:21 DC 12/07/18 09:28 Polyethylene Glycol (Miralax) 1 pkt DAILY PO 12/06/18 09:00 12/12/18 09:13 Potassium Chloride (Micro-K Extencaps) 20 meq DAILY PO 12/08/18 09:00 12/10/18 08:53 DC 12/09/18 08:52 Potassium Chloride (Micro-K Extencaps) 40 meq DAILY PO 12/10/18 09:00 12/12/18 09:12 Senna (Senokot) 1 tab QHS PRN PO CONSTIPATION 12/06/18 01:15 12/06/18 15:05 DC Senna/Docusate Sodium (Senokot S) 2 tab BID PO 12/06/18 21:00 12/12/18 09:13 Sertraline HCl (Zoloft) 25 mg BID PO 12/12/18 21:00 Sertraline HCl (Zoloft) 50 mg BID PO 12/08/18 09:00 12/12/18 10:13 DC 12/12/18 09:12 Sertraline HCl (Zoloft) 100 mg BID PO 12/05/18 21:00 12/08/18 06:21 DC 12/07/18 22:11 Scheduled Acetaminophen (Acetaminophen) 500 Mg Tablet, 500 MG PO BID, (Reported) Ascorbic Acid (Vitamin C) 500 Mg Capsule, 500 MG PO BID, (Reported) Azithromycin (Azithromycin) 250 Mg Tablet, 250 MG PO ASDIRECTED, (Reported) PATIENT STATES SHE HAS ONE MORE DAY ON THIS MEDICATION Ferrous Sulfate (Ferrous Sulfate) 325 Mg Tablet.dr, 325 MG PO DAILY, (Reported) Gabapentin (Gabapentin) 100 Mg Capsule, 100 MG PO DAILY, (Reported) Levothyroxine Sodium (Levothyroxine Sodium) 25 Mcg Tablet, 25 MCG PO DAILY, (Reported) Omeprazole (Omeprazole) 40 Mg Capsule.dr, 40 MG PO DAILY, (Reported) Potassium Chloride (Potassium Chloride) 20 Meq Tab.er.prt, 1 TAB PO DAILY Prednisone (Prednisone) 10 Mg Tab.ds.pk, 10 MG PO ASDIRECTED, (Reported) PATIENT STATES SHE HAS ONE OR TWO DAYS LEFT FOR THIS MEDICAION Sertraline HCl (Sertraline HCl) 100 Mg Tablet, 100 MG PO BID, (Reported) Scheduled PRN Albuterol Sulfate (Ventolin Hfa) 18 Gm Hfa.aer.ad, 2 PUFF INH Q4-6HP PRN for wheezing, (Reported) Pseudoephedrine HCl (Pseudoephedrine HCl) 30 Mg Tablet, 30 MG PO QID PRN for CONGESTION, (Reported) Sennosides (Senna) 8.6 Mg Tablet, 17.2 MG PO QHS PRN for CONSTIPATION, (R eported) Allergies Coded Allergies: Penicillins (Verified Allergy, Intermediate, hives, 12/05/18) CLAUDINE ABRAHAM MD Dec 12, 2018 18:33
[2018-12-12] MEDS: SERTRALINE HCL 25 MG TABLET PO SCH (21:10)
[2018-12-12] MEDS: HALOPERIDOL 2 MG TAB PO SCH (21:11)
[2018-12-13 06:00] VITALS: BP 120/59
[2018-12-13] MEDS: LEVOTHYROXINE 25MCG TABLET (0.025MG) PO SCH (06:07)
[2018-12-13 06:30] LABS: BASO % 0.3 % (0.0-1.0); EOS # 0.2 10^3/uL (0.0-0.5); EOS % 4.1 % (0.0-3.0); HEMATOCRIT 27.4 % (36.0-47.0); HEMOGLOBIN 9.3 g/dl (12.0-15.5); LYMPH # 1.3 10^3/uL (1.5-5.0); LYMPH % 36.5 % (24.0-44.0); MEAN CORPUSCULAR HEMOGLOBIN 38.6 pg (27.0-33.0); MEAN CORPUSCULAR HGB CONC 33.9 g/dl (32.0-36.5); MEAN CORPUSCULAR VOLUME 113.7 fl (80.0-96.0); MONO # 0.6 10^3/uL (0.0-0.8); MONO % 15.7 % (0.0-5.0); NEUTROPHILS # 1.6 10^3/uL (1.5-8.5); PLATELET COUNT, AUTOMATED 144 10^3/uL (150-450); RED BLOOD COUNT 2.41 10^6/uL (4.00-5.40); WHITE BLOOD COUNT 3.6 10^3/uL (4.0-10.0)
[2018-12-13 06:54] LABS: ALBUMIN 3.3 GM/DL (3.2-5.2); ALT/SGPT 24 U/L (12-78); BILIRUBIN,TOTAL 1.4 MG/DL (0.2-1.0); BLOOD UREA NITROGEN 11 MG/DL (7-18); CALCIUM LEVEL 8.6 MG/DL (8.5-10.1); CARBON DIOXIDE LEVEL 29 MEQ/L (21-32); CHLORIDE LEVEL 107 MEQ/L (98-107); CREATININE FOR GFR 0.61 MG/DL (0.55-1.30); GLOMERULAR FILTRATION RATE > 60.0 (>58); GLUCOSE, FASTING 90 MG/DL (70-100); LDH LACTATE DEHYDROGENASE 371 U/L (84-246); POTASSIUM SERUM 4.6 MEQ/L (3.5-5.1); SODIUM LEVEL 140 MEQ/L (136-145); TOTAL PROTEIN 5.5 GM/DL (6.4-8.2)
[2018-12-13 08:27] LABS: NEUTROPHILS % 42.6 % (36.0-66.0)
[2018-12-13] MEDS: CYANOCOBALAMIN 1,000 MCG/ML VIAL (J3420) IM SCH (09:52)
[2018-12-13] MEDS: GABAPENTIN 100 MG CAP PO SCH ×3 (09:52→20:07)
[2018-12-13] MEDS: HALOPERIDOL 2 MG TAB PO SCH ×4 (09:52→20:08)
[2018-12-13] MEDS: SERTRALINE HCL 25 MG TABLET PO SCH ×2 (09:52→20:08)
[2018-12-13] MEDS: MIRALAX *UNIT DOSE* 17GM PACKET PO SCH (09:52)
[2018-12-13] MEDS: SENOKOT S TAB PO SCH ×2 (09:52→20:07)
[2018-12-13] MEDS: POTASSIUM CHLORIDE 10 MEQ SR TABLET PO SCH (09:52)
[2018-12-13] MEDS: ASCORBIC ACID 500 MG TAB PO SCH ×2 (09:52→20:07)
[2018-12-13] MEDS: FERROUS GLUCONATE 324 MG TAB PO SCH (09:52)
[2018-12-13] MEDS: FOLIC ACID 1 MG TAB PO SCH (12:10)
[2018-12-13 14:00] VITALS: BP 120/70
--- NOTE | 2018-12-13 16:29 | IPN ---
DATE: 12/13/2018 The patient denies any homicidal or suicidal ideation. She was seen by Dr. Ortiz yesterday due to paranoia and wanted to sign out against medical advice. Recommendation from Dr. Ortiz is to increase the Haldol to four times a day for agitation, paranoia and psychosis, Benadryl twice a day as needed for extrapyramidal symptoms, continue with Zoloft and one-on-one observation for worsening psychosis. The patient was deemed to be paranoid with poor insight and judgment, and this morning she has no new complaints, anxious to be discharged, but realizes that her strength is not back to baseline. Per physical therapy, she will need rehab after hospital discharge. Patient is cooperative with physical therapy, has a rolling walker at home already but still very unsteady with her knees buckling when she moves. Temperature 99, pulse 58, respiratory rate 18, blood pressure 120/59, 100% on room air. Generally, patient is able to state her name, that it is December 13, 2018. She is unable to say the name of the hospital but says that she is at a hospital. She has no respiratory distress, no use of respiratory accessory muscles. Pupils are anicteric. There is no overt jaundice. Lungs are clear to auscultation. There is no wheezing, rales or rhonchi. Heart: S1, S2, sinus rhythm. No murmurs, rubs or gallops. Abdomen is soft, positive bowel sounds times four quadrants, slightly tender in the right upper quadrant. No rebound, guarding. No hepatosplenomegaly. Extremities: No cyanosis, clubbing or pitting edema. LABORATORY DATA: White count 3.6, hemoglobin 9.3, hematocrit 27, platelet count 144. Sodium 140, potassium 4.6, chloride 107, bicarbonate 29, BUN 11, creatinine 0.61, glucose of 90, total bilirubin 1.4, AST 10, ALT 24, alkaline phosphatase 40, LDH of 371, albumin of 3.3. 12/06/2018 urine culture: No growth of clinical significance. ASSESSMENT AND PLAN: A 43-year-old with rheumatoid arthritis, iron deficiency anemia, chronic back pain, hypothyroidism, admitted due to paranoia, agitation with chronic low back pain and sciatica in the right leg, complains of abdominal pain, anorexia, shortness of breath and 18-pound weight loss. MRI of the brain showed no acute disease. Patient was found to have severe B12 deficiency and had received B12 intramuscular injections 1000 mcg daily. Per neurology, patient was found to be hyperreflexic. She was found to have a hemolytic anemia. To rule out cord compression, MRI was obtained which was negative. She is continued on B12 1000 mcg daily and outpatient followup for EMG and nerve conduction studies as an outpatient. ACTIVE ISSUES ARE FOLLOWS: 1. Subacute degeneration of the spine due to vitamin B12 deficiency due to pernicious anemia. Patient has high intrinsic factor antibodies. She is continued on cyanocobalamin 1000 mcg daily. Neurology was consulted with outpatient followup plans to obtain EMG and nerve conduction studies at hospital discharge. She is working with physical therapy and occupational therapy. 2. Altered mental status with paranoia and hallucinations. May be secondary to neuropsychiatric manifestations of B12 deficiency. Patient currently is requiring a sitter due to severe paranoia with recommendations from psychiatrist Dr. Ortiz to increase the Haldol, continue with Benadryl as needed for extrapyramidal symptoms. MRI of the brain was normal. She is to have neurology followup as an outpatient. She is currently requiring a sitter. 3. B12 deficiency induced pancytopenia with pernicious anemia. Gastroenterology was consulted for esophagogastroduodenoscopy (EGD) and colonoscopy but patient refused and would like to do this as an outpatient. She is to be continued on intramuscular cyanocobalamin daily for 13 days and folic acid at 2 mg daily. 4. Menorrhagia has resolved. No further workup per [facility], most likely secondary to pancytopenia from B12 deficiency. 5. Abdominal pain with no CT evidence of acute cholecystitis. Patient is tolerating her diet well without nausea or vomiting. 6. Hemolytic anemia with elevated LDH and low haptoglobin due to vitamin B12 deficiency, currently on B12 intramuscularly. 7. Hypothyroidism, on chronic Synthroid. DISPOSITION: Not safe for hospital discharge; per physical therapy, patient will need rehab after discharge. MTDD
[2018-12-13 22:00] VITALS: BP 127/73
[2018-12-14 00:08] LABS: VITAMIN B1 LEVEL WHOLE BLOOD 81.1 nmol/L (66.5-200.0); VITAMIN E(ALPHA TOCOPHEROL) 4.1 mg/L (7.0-25.1); VITAMIN E(GAMMA TOCOPHEROL) 0.2 mg/L (0.5-5.5)
[2018-12-14] MEDS: LEVOTHYROXINE 25MCG TABLET (0.025MG) PO SCH (05:36)
[2018-12-14 06:00] VITALS: BP 114/71
[2018-12-14] MEDS ORDERED: KETOROLAC 30 MG/ML VIAL (J1885) IV ONE (08:15)
[2018-12-14 08:59] LABS: BASO % 0.2 % (0.0-1.0); EOS # 0.2 10^3/uL (0.0-0.5); EOS % 2.7 % (0.0-3.0); HEMATOCRIT 30.6 % (36.0-47.0); HEMOGLOBIN 10.2 g/dl (12.0-15.5); LYMPH # 1.5 10^3/uL (1.5-5.0); LYMPH % 27.1 % (24.0-44.0); MEAN CORPUSCULAR HEMOGLOBIN 37.2 pg (27.0-33.0); MEAN CORPUSCULAR HGB CONC 33.3 g/dl (32.0-36.5); MEAN CORPUSCULAR VOLUME 111.7 fl (80.0-96.0); MONO # 0.7 10^3/uL (0.0-0.8); MONO % 11.8 % (0.0-5.0); NEUTROPHILS # 3.2 10^3/uL (1.5-8.5); NEUTROPHILS % 57.8 % (36.0-66.0); PLATELET COUNT, AUTOMATED 194 10^3/uL (150-450); RED BLOOD COUNT 2.74 10^6/uL (4.00-5.40); WHITE BLOOD COUNT 5.6 10^3/uL (4.0-10.0)
[2018-12-14 09:12] LABS: ALBUMIN 3.6 GM/DL (3.2-5.2); ALT/SGPT 25 U/L (12-78); BILIRUBIN,TOTAL 1.8 MG/DL (0.2-1.0); BLOOD UREA NITROGEN 10 MG/DL (7-18); C REACTIVE PROTEIN QUANTITATIV < 0.30 MG/DL (0.00-0.30); CARBON DIOXIDE LEVEL 29 MEQ/L (21-32); CHLORIDE LEVEL 107 MEQ/L (98-107); CREATININE FOR GFR 0.68 MG/DL (0.55-1.30); GLOMERULAR FILTRATION RATE > 60.0 (>58); GLUCOSE, FASTING 86 MG/DL (70-100); POTASSIUM SERUM 4.2 MEQ/L (3.5-5.1); SODIUM LEVEL 141 MEQ/L (136-145); TOTAL PROTEIN 6.3 GM/DL (6.4-8.2)
[2018-12-14] MEDS: POTASSIUM CHLORIDE 10 MEQ SR TABLET PO SCH (09:17)
[2018-12-14] MEDS: CYANOCOBALAMIN 1,000 MCG/ML VIAL (J3420) IM SCH (09:17)
[2018-12-14] MEDS: SERTRALINE HCL 25 MG TABLET PO SCH ×2 (09:17→20:27)
[2018-12-14] MEDS: GABAPENTIN 100 MG CAP PO SCH ×3 (09:17→20:27)
[2018-12-14] MEDS: HALOPERIDOL 2 MG TAB PO SCH ×4 (09:18→20:27)
[2018-12-14] MEDS: MIRALAX *UNIT DOSE* 17GM PACKET PO SCH (09:18)
[2018-12-14] MEDS: ASCORBIC ACID 500 MG TAB PO SCH ×2 (09:18→20:27)
[2018-12-14] MEDS: SENOKOT S TAB PO SCH ×2 (09:18→20:27)
[2018-12-14] MEDS: FERROUS GLUCONATE 324 MG TAB PO SCH (09:18)
[2018-12-14 09:30] LABS: ERYTHROCYTE SEDIMENTATION RATE 14 mm/hr (0-20)
--- NOTE | 2018-12-14 12:31 | IPN ---
DATE OF SERVICE: 12/14/2018 This morning, the patient complains of achiness all over. Does not specify whether it is muscle or joints and says "I don't know." She has been unable to work with physical therapy yesterday due to feeling soreness all over. No fever or chills. No nausea or vomiting. The patient denies any abdominal pain. No diarrhea. Refused to be weighed yesterday. Wants to go home, but her gait and balance are not optimal. Temperature 98.9, pulse 64, respiratory rate 18, blood pressure 114/71, 96% on room air. Generally, awake, alert, oriented to person, place, time. Answering questions appropriately. No respiratory distress. No cyanosis. The patient has good eye contact. Does not appear to be withdrawn. Anicteric sclerae. No jaundice. Lungs are clear to auscultation. No wheezing, rales, or rhonchi. Heart: S1, S2, sinus rhythm. Abdomen is soft, nontender, nondistended. Positive bowel sounds. No rebound, guarding. No hepatosplenomegaly. Extremities: No cyanosis, clubbing, or pitting edema. LABORATORY DATA: None available. ASSESSMENT AND PLAN: This is a 43-year-old female with B12 deficiency, pancytopenia secondary to B12 deficiency with pernicious anemia, hypothyroidism, unable to be discharged due to poor balance and has not passed a home safety evaluation. CURRENT ISSUES: 1. History of rheumatoid arthritis with new diagnosis of pancytopenia secondary to pernicious anemia, currently on B12, folic acid, on iron supplements. Neurology followup as outpatient for electromyelogram (EMG) and nerve conduction studies. EMG and nerve conduction studies as an outpatient. 2. Paranoia and agitation. Evaluated by psychiatrist. On Haldol and Benadryl for extrapyramidal symptoms. 3. 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 Continued on vitamin B12. Neurology followup as outpatient. 4. Menorrhagia, resolved, due to pancytopenia. 5. Abdominal pain. No acute cholecystitis. Tolerating a diet with nausea or vomiting. Complains of chills. Check procalcitonin, complete blood count (CBC), metabolic panel. No empiric antibiotics. 6. Hemolytic anemia with elevated LDH and low haptoglobin due to vitamin B12 deficiency. 7. Hypothyroidism, on Synthroid. DISPOSITION: May change to alternate level of care (ALC) status while awaiting clearance for discharge home. MTDD
[2018-12-14] MEDS: FOLIC ACID 1 MG TAB PO SCH (12:58)
[2018-12-14 14:00] VITALS: BP 120/69
[2018-12-14] MEDS: ACETAMINOPHEN 500 MG TAB PO PRN (16:53)
[2018-12-15] MEDS: LEVOTHYROXINE 25MCG TABLET (0.025MG) PO SCH (05:39)
[2018-12-15 06:00] VITALS: BP 139/77
[2018-12-15] MEDS: CYANOCOBALAMIN 1,000 MCG/ML VIAL (J3420) IM SCH (08:42)
[2018-12-15] MEDS: SERTRALINE HCL 25 MG TABLET PO SCH ×2 (08:42→20:30)
[2018-12-15] MEDS: GABAPENTIN 100 MG CAP PO SCH ×3 (08:43→20:30)
[2018-12-15] MEDS: FERROUS GLUCONATE 324 MG TAB PO SCH (08:43)
[2018-12-15] MEDS: HALOPERIDOL 2 MG TAB PO SCH ×4 (08:43→20:30)
[2018-12-15] MEDS: POTASSIUM CHLORIDE 10 MEQ SR TABLET PO SCH (08:43)
[2018-12-15] MEDS: ASCORBIC ACID 500 MG TAB PO SCH ×2 (08:43→20:30)
[2018-12-15] MEDS: MIRALAX *UNIT DOSE* 17GM PACKET PO SCH (08:50)
[2018-12-15] MEDS: SENOKOT S TAB PO SCH ×2 (08:50→20:30)
[2018-12-15 11:16] LABS: HEMATOCRIT 29.5 % (36.0-47.0); HEMOGLOBIN 10.1 g/dl (12.0-15.5); MEAN CORPUSCULAR HEMOGLOBIN 38.3 pg (27.0-33.0); MEAN CORPUSCULAR HGB CONC 34.2 g/dl (32.0-36.5); MEAN CORPUSCULAR VOLUME 111.7 fl (80.0-96.0); PLATELET COUNT, AUTOMATED 194 10^3/uL (150-450); RED BLOOD COUNT 2.64 10^6/uL (4.00-5.40); WHITE BLOOD COUNT 9.2 10^3/uL (4.0-10.0)
[2018-12-15 11:39] LABS: BLOOD UREA NITROGEN 13 MG/DL (7-18); CALCIUM LEVEL 8.7 MG/DL (8.5-10.1); CARBON DIOXIDE LEVEL 28 MEQ/L (21-32); CHLORIDE LEVEL 107 MEQ/L (98-107); CREATININE FOR GFR 0.59 MG/DL (0.55-1.30); GLOMERULAR FILTRATION RATE > 60.0 (>58); GLUCOSE, FASTING 89 MG/DL (70-100); POTASSIUM SERUM 4.1 MEQ/L (3.5-5.1); SODIUM LEVEL 138 MEQ/L (136-145)
[2018-12-15] MEDS: FOLIC ACID 1 MG TAB PO SCH (12:15)
[2018-12-15] MEDS: ACETAMINOPHEN 500 MG TAB PO PRN (19:37)
[2018-12-16 06:00] VITALS: BP 134/76
[2018-12-16] MEDS: LEVOTHYROXINE 25MCG TABLET (0.025MG) PO SCH (06:14)
[2018-12-16] MEDS: SENOKOT S TAB PO SCH ×2 (09:00→21:00)
[2018-12-16] MEDS: MIRALAX *UNIT DOSE* 17GM PACKET PO SCH (09:00)
[2018-12-16] MEDS: SERTRALINE HCL 25 MG TABLET PO SCH ×2 (09:21→21:08)
[2018-12-16] MEDS: GABAPENTIN 100 MG CAP PO SCH ×3 (09:21→21:08)
[2018-12-16] MEDS: HALOPERIDOL 2 MG TAB PO SCH ×4 (09:22→21:08)
[2018-12-16] MEDS: FERROUS GLUCONATE 324 MG TAB PO SCH (09:22)
[2018-12-16] MEDS: POTASSIUM CHLORIDE 10 MEQ SR TABLET PO SCH (09:22)
[2018-12-16] MEDS: ASCORBIC ACID 500 MG TAB PO SCH ×2 (09:22→21:07)
[2018-12-16] MEDS: CYANOCOBALAMIN 1,000 MCG/ML VIAL (J3420) IM SCH (09:22)
[2018-12-16] MEDS: FOLIC ACID 1 MG TAB PO SCH (12:00)
[2018-12-17] MEDS: LEVOTHYROXINE 25MCG TABLET (0.025MG) PO SCH (05:57)
[2018-12-17 06:00] VITALS: BP 130/68
[2018-12-17] MEDS: MIRALAX *UNIT DOSE* 17GM PACKET PO SCH (08:13)
[2018-12-17] MEDS: GABAPENTIN 100 MG CAP PO SCH ×3 (08:14→20:07)
[2018-12-17] MEDS: POTASSIUM CHLORIDE 10 MEQ SR TABLET PO SCH (08:14)
[2018-12-17] MEDS: ASCORBIC ACID 500 MG TAB PO SCH ×2 (08:14→20:07)
[2018-12-17] MEDS: SENOKOT S TAB PO SCH ×2 (08:14→20:07)
[2018-12-17] MEDS: FERROUS GLUCONATE 324 MG TAB PO SCH (08:14)
[2018-12-17] MEDS: CYANOCOBALAMIN 1,000 MCG/ML VIAL (J3420) IM SCH (08:15)
[2018-12-17] MEDS: SERTRALINE HCL 25 MG TABLET PO SCH ×2 (08:16→20:07)
[2018-12-17] MEDS: HALOPERIDOL 2 MG TAB PO SCH ×4 (10:39→20:07)
[2018-12-17] MEDS: FOLIC ACID 1 MG TAB PO SCH (11:16)
[2018-12-17] MEDS: ACETAMINOPHEN 500 MG TAB PO PRN (23:19)
[2018-12-18] MEDS: LEVOTHYROXINE 25MCG TABLET (0.025MG) PO SCH (05:34)
[2018-12-18 06:00] VITALS: BP 114/68
[2018-12-18] MEDS: POTASSIUM CHLORIDE 10 MEQ SR TABLET PO SCH (09:00)
[2018-12-18] MEDS: GABAPENTIN 100 MG CAP PO SCH ×3 (10:07→20:20)
[2018-12-18] MEDS: HALOPERIDOL 2 MG TAB PO SCH ×4 (10:07→20:20)
[2018-12-18] MEDS: SENOKOT S TAB PO SCH ×2 (10:07→20:20)
[2018-12-18] MEDS: MIRALAX *UNIT DOSE* 17GM PACKET PO SCH (10:07)
[2018-12-18] MEDS: ASCORBIC ACID 500 MG TAB PO SCH ×2 (10:08→20:20)
[2018-12-18] MEDS: CYANOCOBALAMIN 1,000 MCG/ML VIAL (J3420) IM SCH (10:08)
[2018-12-18] MEDS: SERTRALINE HCL 25 MG TABLET PO SCH ×2 (10:08→20:20)
[2018-12-18] MEDS: diphenhydrAMINE 25 MG CAP PO SCH ×3 (10:08→23:15)
[2018-12-18] MEDS: FERROUS GLUCONATE 324 MG TAB PO SCH (10:08)
[2018-12-18] MEDS: FOLIC ACID 1 MG TAB PO SCH (12:37)
[2018-12-18 14:00] VITALS: BP 107/59
[2018-12-18 20:00] VITALS: BP 152/71
[2018-12-19] MEDS: LEVOTHYROXINE 25MCG TABLET (0.025MG) PO SCH (05:38)
[2018-12-19] MEDS: diphenhydrAMINE 25 MG CAP PO SCH ×4 (05:38→23:08)
[2018-12-19 06:00] VITALS: BP 105/60
[2018-12-19 08:59] LABS: HEMATOCRIT 28.5 % (36.0-47.0); HEMOGLOBIN 9.5 g/dl (12.0-15.5); MEAN CORPUSCULAR HEMOGLOBIN 37.4 pg (27.0-33.0); MEAN CORPUSCULAR HGB CONC 33.3 g/dl (32.0-36.5); MEAN CORPUSCULAR VOLUME 112.2 fl (80.0-96.0); PLATELET COUNT, AUTOMATED 213 10^3/uL (150-450); RED BLOOD COUNT 2.54 10^6/uL (4.00-5.40); WHITE BLOOD COUNT 5.6 10^3/uL (4.0-10.0)
[2018-12-19 09:19] LABS: BLOOD UREA NITROGEN 14 MG/DL (7-18); CALCIUM LEVEL 8.4 MG/DL (8.5-10.1); CARBON DIOXIDE LEVEL 27 MEQ/L (21-32); CHLORIDE LEVEL 110 MEQ/L (98-107); CREATININE FOR GFR 0.62 MG/DL (0.55-1.30); GLOMERULAR FILTRATION RATE > 60.0 (>58); GLUCOSE, FASTING 110 MG/DL (70-100); POTASSIUM SERUM 3.7 MEQ/L (3.5-5.1); SODIUM LEVEL 142 MEQ/L (136-145)
[2018-12-19] MEDS: POTASSIUM CHLORIDE 10 MEQ SR TABLET PO SCH (09:38)
[2018-12-19] MEDS: CYANOCOBALAMIN 1,000 MCG/ML VIAL (J3420) IM SCH (09:38)
[2018-12-19] MEDS: HALOPERIDOL 2 MG TAB PO SCH ×4 (09:39→20:14)
[2018-12-19] MEDS: SERTRALINE HCL 25 MG TABLET PO SCH ×2 (09:39→20:14)
[2018-12-19] MEDS: GABAPENTIN 100 MG CAP PO SCH ×3 (09:39→20:13)
[2018-12-19] MEDS: ASCORBIC ACID 500 MG TAB PO SCH ×2 (09:39→20:13)
[2018-12-19] MEDS: SENOKOT S TAB PO SCH ×2 (09:40→20:13)
[2018-12-19] MEDS: FERROUS GLUCONATE 324 MG TAB PO SCH (09:40)
[2018-12-19] MEDS: MIRALAX *UNIT DOSE* 17GM PACKET PO SCH (09:41)
--- NOTE | 2018-12-19 12:05 | IPNPDOC ---
Text Note Date of Service The patient was seen on 12/19/18. NOTE Ratio was seen and examined this morning. Said that and the nurse states that he was disoriented in the morning and was wobbly while walking to the restroom Physical examination Generally, awake, alert, oriented to person, place, time. Answering questions appropriately. No respiratory distress. No cyanosis. The patient has good eye contact. Does not appear to be withdrawn. Anicteric sclerae. No jaundice. Lungs are clear to auscultation. No wheezing, rales, or rhonchi. Heart: S1, S2, sinus rhythm. Abdomen is soft, nontender, nondistended. Positive bowel sounds. No rebound, guarding. No hepatosplenomegaly. Extremities: No cyanosis, clubbing, or pitting edema. LABORATORY DATA: None available. ASSESSMENT AND PLAN: This is a 43-year-old female with B12 deficiency, pancytopenia secondary to B12 deficiency with pernicious anemia, hypothyroidism, unable to be discharged due to poor balance and has not passed a home safety evaluation. CURRENT ISSUES: 1. History of rheumatoid arthritis with new diagnosis of pancytopenia secondary to pernicious anemia, currently on B12, folic acid, on iron supplements. Neurology followup as outpatient for electromyelogram (EMG) and nerve conduction studies. EMG and nerve conduction studies as an outpatient. 2. Paranoia and agitation. Evaluated by psychiatrist. On Haldol and Benadryl for extrapyramidal symptoms. Continues to be on one-to-one sitter 3. 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 Continued on vitamin B12. Neurology followup as outpatient. 4. Menorrhagia, resolved, due to pancytopenia. 5. Abdominal pain. No acute cholecystitis. Tolerating a diet with nausea or vomiting. Complains of chills. Check procalcitonin, complete blood count (CBC), metabolic panel. No empiric antibiotics. 6. Hemolytic anemia with elevated LDH and low haptoglobin due to vitamin B12 deficiency. 7. Hypothyroidism, on Synthroid. DISPOSITION: Unknown at this time. VS,Fishbone, I+O VS, Fishbone, I+O Laboratory Tests 12/19/18 08:36 Vital Signs Date Time Temp Pulse Resp B/P (MAP) Pulse Ox O2 Delivery O2 Flow Rate FiO2 12/19/18 06:00 98.1 61 18 105/60 (48) 98 Room Air I&O- Last 24 Hours up to 6 AM 12/19/18 06:00 Intake Total 670 ml Output Total 1100 ml Balance -430 ml RUBIO MANDUJANO MD Dec 19, 2018 12:05
[2018-12-19] MEDS: FOLIC ACID 1 MG TAB PO SCH (12:36)
[2018-12-19 22:00] VITALS: BP 118/74
[2018-12-20] MEDS: LEVOTHYROXINE 25MCG TABLET (0.025MG) PO SCH (05:44)
[2018-12-20] MEDS: diphenhydrAMINE 25 MG CAP PO SCH ×4 (05:44→23:22)
[2018-12-20 06:00] VITALS: BP 119/75
[2018-12-20] MEDS: FERROUS GLUCONATE 324 MG TAB PO SCH (10:09)
[2018-12-20] MEDS: GABAPENTIN 100 MG CAP PO SCH ×3 (10:09→21:13)
[2018-12-20] MEDS: MIRALAX *UNIT DOSE* 17GM PACKET PO SCH (10:09)
[2018-12-20] MEDS: POTASSIUM CHLORIDE 10 MEQ SR TABLET PO SCH (10:10)
[2018-12-20] MEDS: SENOKOT S TAB PO SCH ×2 (10:10→21:00)
[2018-12-20] MEDS: SERTRALINE HCL 25 MG TABLET PO SCH ×2 (10:10→21:13)
[2018-12-20] MEDS: HALOPERIDOL 2 MG TAB PO SCH ×4 (10:10→21:13)
[2018-12-20] MEDS: ASCORBIC ACID 500 MG TAB PO SCH ×2 (10:10→21:13)
--- NOTE | 2018-12-20 11:09 | IPNPDOC ---
Text Note Date of Service The patient was seen on 12/20/18. NOTE Patient was seen and examined this morning. Had a good night sleep. Completely oriented today and for that reason certainly be discontinued Physical examination Generally, awake, alert, oriented to person, place, time. Answering questions appropriately. No respiratory distress. No cyanosis. The patient has good eye contact. Does not appear to be withdrawn. Anicteric sclerae. No jaundice. Lungs are clear to auscultation. No wheezing, rales, or rhonchi. Heart: S1, S2, sinus rhythm. Abdomen is soft, nontender, nondistended. Positive bowel sounds. No rebound, guarding. No hepatosplenomegaly. Extremities: No cyanosis, clubbing, or pitting edema. LABORATORY DATA: None available. ASSESSMENT AND PLAN: This is a 43-year-old female with B12 deficiency, pancytopenia secondary to B12 deficiency with pernicious anemia, hypothyroidism, unable to be discharged due to poor balance and has not passed a home safety evaluation. CURRENT ISSUES: 1. History of rheumatoid arthritis with new diagnosis of pancytopenia secondary to pernicious anemia, currently on B12, folic acid, on iron supplements. Neurology followup as outpatient for electromyelogram (EMG) and nerve conduction studies. EMG and nerve conduction studies as an outpatient. 2. Paranoia and agitation. Improved Evaluated by psychiatrist. On Haldol and Benadryl for extrapyramidal symptoms. 3. 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 Continued on vitamin B12. Neurology followup as outpatient. 4. Menorrhagia, resolved, due to pancytopenia. 5. Abdominal pain. No acute cholecystitis. Tolerating a diet with nausea or vomiting. Complains of chills. Check procalcitonin, complete blood count (CBC), metabolic panel. No empiric antibiotics. 6. Hemolytic anemia with elevated LDH and low haptoglobin due to vitamin B12 deficiency. 7. Hypothyroidism, on Synthroid. DISPOSITION: Unknown at this time. \DC one-to-one sitter today VS,Fishbone, I+O VS, Fishbone, I+O Vital Signs Date Time Temp Pulse Resp B/P (MAP) Pulse Ox O2 Delivery O2 Flow Rate FiO2 12/20/18 06:00 97.9 70 18 119/75 (90) 100 12/19/18 22:00 Room Air I&O- Last 24 Hours up to 6 AM 12/20/18 06:00 Intake Total 910 ml Output Total 1600 ml Balance -690 ml RUBIO MANDUJANO MD Dec 20, 2018 11:09
[2018-12-20] MEDS: CYANOCOBALAMIN 1,000 MCG/ML VIAL (J3420) IM SCH (12:36)
[2018-12-20] MEDS: FOLIC ACID 1 MG TAB PO SCH (12:37)
[2018-12-21 06:00] VITALS: BP 124/79
[2018-12-21] MEDS: diphenhydrAMINE 25 MG CAP PO SCH ×4 (06:11→23:08)
[2018-12-21] MEDS: LEVOTHYROXINE 25MCG TABLET (0.025MG) PO SCH (06:12)
[2018-12-21] MEDS: MIRALAX *UNIT DOSE* 17GM PACKET PO SCH (07:28)
[2018-12-21] MEDS: SENOKOT S TAB PO SCH ×2 (07:28→20:37)
[2018-12-21] MEDS: SERTRALINE HCL 25 MG TABLET PO SCH ×2 (08:09→20:37)
[2018-12-21] MEDS: GABAPENTIN 100 MG CAP PO SCH ×3 (08:09→20:37)
[2018-12-21] MEDS: HALOPERIDOL 2 MG TAB PO SCH (08:09)
[2018-12-21] MEDS: ASCORBIC ACID 500 MG TAB PO SCH ×2 (08:09→20:37)
[2018-12-21] MEDS: FERROUS GLUCONATE 324 MG TAB PO SCH (08:09)
[2018-12-21] MEDS: CYANOCOBALAMIN 1,000 MCG/ML VIAL (J3420) IM SCH (08:10)
[2018-12-21] MEDS: POTASSIUM CHLORIDE 10 MEQ SR TABLET PO SCH (08:10)
--- NOTE | 2018-12-21 12:01 | IPNPDOC ---
Text Note Date of Service The patient was seen on 12/21/18. NOTE Patient was seen and examined this morning. Had a good night sleep. Completely oriented today Continues to have increasing right-sided hand tremors which are intentional Physical examination Generally, awake, alert, oriented to person, place, time. Answering questions appropriately. No respiratory distress. No cyanosis. The patient has good eye contact. Does not appear to be withdrawn. Anicteric sclerae. No jaundice. Lungs are clear to auscultation. No wheezing, rales, or rhonchi. Heart: S1, S2, sinus rhythm. Abdomen is soft, nontender, nondistended. Positive bowel sounds. No rebound, guarding. No hepatosplenomegaly. Extremities: No cyanosis, clubbing, or pitting edema. Intentional right-sided hand tremors ASSESSMENT AND PLAN: This is a 43-year-old female with B12 deficiency, pancytopenia secondary to B12 deficiency with pernicious anemia, hypothyroidism, unable to be discharged due to poor balance and has not passed a home safety evaluation. 1. Newly diagnosed pancytopenia secondary to pernicious anemia, currently on B12, folic acid, on iron supplements. Neurology followup as outpatient for electromyelogram (EMG) and nerve conduction studies. EMG and nerve conduction studies as an outpatient. The patient had MRI of head with cervical lumbar and thoracic spine which did not show any major abnormalities. GI has already evaluated the patient and she would require an outpatient follow-up 2. Paranoia and agitation. Improved, Evaluated by psychiatrist. She was put on Haldol 2 mg 4 times a day, which could be leading to some dyskinesias here and intentional tremors. For that reason, the dose has been decreased to 1 3 times a day. 3. 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 Continued on vitamin B12. Neurology followup as outpatient. 4. Menorrhagia, resolved, due to pancytopenia. 5. Abdominal pain. No acute cholecystitis. Tolerating a diet with nausea or vomiting. 6. Hemolytic anemia with elevated LDH and low haptoglobin due to vitamin B12 deficiency. Now hemoglobin has been stable. 7. Hypothyroidism, on Synthroid. DISPOSITION: Unknown at this time. VS,Fishbone, I+O VS, Fishbone, I+O Vital Signs Date Time Temp Pulse Resp B/P (MAP) Pulse Ox O2 Delivery O2 Flow Rate FiO2 10/23/19 06:00 98.4 79 18 124/79 (94) 98 Room Air I&O- Last 24 Hours up to 6 AM 12/21/18 06:00 Intake Total 1590 ml Output Total 1550 ml Balance 40 ml RUBIO MANDUJANO MD Dec 21, 2018 12:00
[2018-12-21] MEDS: FOLIC ACID 1 MG TAB PO SCH (13:05)
[2018-12-21] MEDS: HALOPERIDOL 1 MG TAB PO SCH ×2 (17:15→20:37)
[2018-12-21 20:00] VITALS: BP 100/71
[2018-12-21 22:00] VITALS: BP 106/70
[2018-12-22] MEDS: LEVOTHYROXINE 25MCG TABLET (0.025MG) PO SCH (05:34)
[2018-12-22] MEDS: diphenhydrAMINE 25 MG CAP PO SCH ×3 (05:34→17:12)
[2018-12-22 06:00] VITALS: BP 109/65
[2018-12-22 08:22] LABS: BASO % 0.7 % (0.0-1.0); EOS # 0.1 10^3/uL (0.0-0.5); HEMOGLOBIN 9.9 g/dl (12.0-15.5); LYMPH # 1.5 10^3/uL (1.5-5.0); MEAN CORPUSCULAR VOLUME 109.1 fl (80.0-96.0); MONO # 0.7 10^3/uL (0.0-0.8); MONO % 11.7 % (0.0-5.0); NEUTROPHILS # 3.2 10^3/uL (1.5-8.5); NEUTROPHILS % 58.2 % (36.0-66.0); PLATELET COUNT, AUTOMATED 209 10^3/uL (150-450); RED BLOOD COUNT 2.75 10^6/uL (4.00-5.40); WHITE BLOOD COUNT 5.6 10^3/uL (4.0-10.0)
[2018-12-22 08:48] LABS: ALBUMIN 3.3 GM/DL (3.2-5.2); ALT/SGPT 48 U/L (12-78); BLOOD UREA NITROGEN 15 MG/DL (7-18); CALCIUM LEVEL 8.6 MG/DL (8.5-10.1); CARBON DIOXIDE LEVEL 29 MEQ/L (21-32); CHLORIDE LEVEL 109 MEQ/L (98-107); CREATININE FOR GFR 0.62 MG/DL (0.55-1.30); GLOMERULAR FILTRATION RATE > 60.0 (>58); GLUCOSE, FASTING 84 MG/DL (70-100); POTASSIUM SERUM 4.4 MEQ/L (3.5-5.1); SODIUM LEVEL 142 MEQ/L (136-145); TOTAL PROTEIN 5.8 GM/DL (6.4-8.2)
[2018-12-22] MEDS: POTASSIUM CHLORIDE 10 MEQ SR TABLET PO SCH (08:53)
[2018-12-22] MEDS: CYANOCOBALAMIN 1,000 MCG/ML VIAL (J3420) IM SCH (08:53)
[2018-12-22] MEDS: HALOPERIDOL 1 MG TAB PO SCH ×3 (08:54→20:44)
[2018-12-22] MEDS: FERROUS GLUCONATE 324 MG TAB PO SCH (08:54)
[2018-12-22] MEDS: GABAPENTIN 100 MG CAP PO SCH ×3 (08:54→20:44)
[2018-12-22] MEDS: ASCORBIC ACID 500 MG TAB PO SCH ×2 (08:54→20:44)
[2018-12-22] MEDS: SERTRALINE HCL 25 MG TABLET PO SCH ×2 (08:54→20:44)
[2018-12-22 08:56] LABS: VITAMIN B12 LEVEL > 2000 PG/ML (247-911)
[2018-12-22] MEDS: SENOKOT S TAB PO SCH ×2 (08:56→20:44)
[2018-12-22] MEDS: MIRALAX *UNIT DOSE* 17GM PACKET PO SCH (08:56)
[2018-12-22] MEDS: FOLIC ACID 1 MG TAB PO SCH (11:03)
--- NOTE | 2018-12-22 12:19 | IPNPDOC ---
Text Note Date of Service The patient was seen on 12/22/18. NOTE Patient was seen and examined this morning. Had a good night sleep. Completely oriented today Continues to have increasing right-sided hand tremors which are intentional but better Physical examination Generally, awake, alert, oriented to person, place, time. Answering questions appropriately. No respiratory distress. No cyanosis. The patient has good eye contact. Does not appear to be withdrawn. Anicteric sclerae. No jaundice. Lungs are clear to auscultation. No wheezing, rales, or rhonchi. Heart: S1, S2, sinus rhythm. Abdomen is soft, nontender, nondistended. Positive bowel sounds. No rebound, guarding. No hepatosplenomegaly. Extremities: No cyanosis, clubbing, or pitting edema. Intentional right-sided hand tremors ASSESSMENT AND PLAN: This is a 43-year-old female with B12 deficiency, pancytopenia secondary to B12 deficiency with pernicious anemia, hypothyroidism, unable to be discharged due to poor balance and has not passed a home safety evaluation. 1. Newly diagnosed pancytopenia secondary to pernicious anemia, currently on B12, folic acid, on iron supplements. Neurology followup as outpatient for electromyelogram (EMG) and nerve conduction studies. EMG and nerve conduction studies as an outpatient. The patient had MRI of head with cervical lumbar and thoracic spine which did not show any major abnormalities. GI has already evalua tristan the patient and she would require an outpatient follow-up 2. Paranoia and agitation. Improved, Evaluated by psychiatrist. She was put on Haldol 2 mg 4 times a day, which could be leading to some dyskinesias here and intentional tremors. For that reason, the dose has been decreased to 1mg 2 t imes a day. 3. 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 Continued on vitamin B12. Neurology followup as outpatient. 4. Menorrhagia, resolved, due to pancytopenia. 5. Abdominal pain. No acute cholecystitis. Tolerating a diet with nausea or vomiting. 6. Hemolytic anemia with elevated LDH and low haptoglobin due to vitamin B12 deficiency. Now hemoglobin has been stable. 7. Hypothyroidism, on Synthroid. DISPOSITION: Unknown at this time. VS,Fishbone, I+O VS, Fishbone, I+O Laboratory Tests 12/22/18 08:12 Vital Signs Date Time Temp Pulse Resp B/P (MAP) Pulse Ox O2 Delivery O2 Flow Rate FiO2 12/22/18 06:00 98.1 69 18 109/65 (80) 99 12/21/18 22:00 Room Air I&O- Last 24 Hours up to 6 AM 12/22/18 06:00 Intake Total 837 ml Output Total 2350 ml Balance -1513 ml RUBIO MANDUJANO MD Dec 22, 2018 12:19
[2018-12-23] MEDS: diphenhydrAMINE 25 MG CAP PO SCH ×2 (00:15→05:28)
[2018-12-23] MEDS: LEVOTHYROXINE 25MCG TABLET (0.025MG) PO SCH (05:28)
[2018-12-23 06:00] VITALS: BP 115/55
[2018-12-23] MEDS: MIRALAX *UNIT DOSE* 17GM PACKET PO SCH (07:49)
[2018-12-23] MEDS: SENOKOT S TAB PO SCH (07:49)
[2018-12-23] MEDS: CYANOCOBALAMIN 1,000 MCG/ML VIAL (J3420) IM SCH (09:00)
[2018-12-23] MEDS ORDERED: HALOPERIDOL 1 MG TAB PO SCH (09:00)
[2018-12-23] MEDS: ASCORBIC ACID 500 MG TAB PO SCH (09:01)
[2018-12-23] MEDS: GABAPENTIN 100 MG CAP PO SCH (09:01)
[2018-12-23] MEDS: FERROUS GLUCONATE 324 MG TAB PO SCH (09:01)
[2018-12-23] MEDS: SERTRALINE HCL 25 MG TABLET PO SCH (09:01)
[2018-12-23] MEDS: POTASSIUM CHLORIDE 10 MEQ SR TABLET PO SCH (09:01)
[2018-12-23] MEDS ORDERED: HALO1TA PO (10:38)
[2018-12-23] MEDS ORDERED: CYAN1000VL IM (10:38)
--- NOTE | 2018-12-23 10:45 | DS.PDOC ---
Discharge Summary General Date of Admission Dec 05, 2018 at 21:00 Date of Discharge 12/23/18 Discharge Summary Chief complaints Back pain Final diagnosis Vitamin B12 deficiency Pernicious anemia Subacute degeneration of spinal cord Agitation and paranoia History of present illness and Hospital course This is a 43-year-old female with newly diagnised B12 deficiency, pancytopenia secondary to B12 deficiency with pernicious anemia, hypothyroidism, unable to be discharged due to poor balance and has not passed a home safety evaluation. For her Newly diagnosed pancytopenia secondary to pernicious anemia, currently on B12 , now IM shot monthly , folic acid, on iron supplements. Neurology followup as outpatient for electromyelogram (EMG) and nerve conduction studies. EMG and nerve conduction studies as an outpatient. The patient had MRI of head with cervical lumbar and thoracic spine which did not show any major abnormalities. GI has already evaluated the patient and she would require an outpatient follow- up . For Paranoia and agitation. Improved, Evaluated by psychiatrist. She was put on Haldol 2 mg 4 times a day, which could be leading to some dyskinesias here and intentional tremors. For that reason, the dose has been decreased to 1mg daily on DC. She also has Subacute degeneration of the spine due to vitamin B12 deficiency from pernicious anemia. Continued on vitamin B12. Neurology followup as outpatient. Her Menorrhagia, resolved,and it was due to pancytopenia. Initially she had Hemolytic anemia with elevated LDH and low haptoglobin due to vitamin B12 deficiency. Now hemoglobin has been stable. She is medically optimized for DC Physical examination Generally, awake, alert, oriented to person, place, time. Answering questions appropriately. No respiratory distress. No cyanosis. The patient has good eye contact. Does not appear to be withdrawn. Anicteric sclerae. No jaundice. Lungs are clear to auscultation. No wheezing, rales, or rhonchi. Heart: S1, S2, sinus rhythm. Abdomen is soft, nontender, nondistended. Positive bowel sounds. No rebound, guarding. No hepatosplenomegaly. Extremities: No cyanosis, clubbing, or pitting edema. Intentional right-sided hand tremors Dictations. As per discharge reconciliation medication list Activity as tolerated Diet. 2 g sodium diet Follow-up appointments. PCP in 1 week, neurology follow-up in one week, GI follow-up in one week, psychiatric follow-up in one week, Condition on discharge. Patient is medically optimized for discharge Discharge disposition: Short-term rehabilitation Total time spent on this discharge including coordination of care, review of chart documentation and actual contact is around 35 minutes Vital Signs/I&Os Vital Signs Date Time Temp Pulse Resp B/P (MAP) Pulse Ox O2 Delivery O2 Flow Rate FiO2 12/23/18 06:00 97.7 53 16 115/55 (75) 98 Room Air I&O- Last 24 Hours up to 6 AM 12/23/18 06:00 Intake Total 940 ml Output Total 1325 ml Balance -385 ml Microbiology Microbiology 12/14/18 Respiratory Virus Panel (PCR) ([facility]) - Final, Complete Discharge Medications Scheduled Acetaminophen (Acetaminophen) 500 Mg Tablet, 500 MG PO BID, (Reported) Ascorbic Acid (Vitamin C) 500 Mg Capsule, 500 MG PO BID, (Reported) Cyanocobalamin (Cyanocobalamin Injection) 1,000 Mcg/1 Ml Vial, 1,000 MCG IM MTHLY Ferrous Sulfate (Ferrous Sulfate) 325 Mg Tablet.dr, 325 MG PO DAILY, (Reported) Gabapentin (Gabapentin) 100 Mg Capsule, 100 MG PO DAILY, (Reported) Haloperidol (Haloperidol) 1 Mg Tablet, 1 MG PO DAILY Levothyroxine Sodium (Levothyroxine Sodium) 25 Mcg Tablet, 25 MCG PO DAILY, (Reported) Omeprazole (Omeprazole) 40 Mg Capsule.dr, 40 MG PO DAILY, (Reported) Potassium Chloride (Potassium Chloride) 20 Meq Tab.er.prt, 1 TAB PO DAILY Sertraline HCl (Sertraline HCl) 100 Mg Tablet, 100 MG PO BID, (Reported) Scheduled PRN Albuterol Sulfate (Ventolin Hfa) 18 Gm Hfa.aer.ad, 2 PUFF INH Q4-6HP PRN for wheezing, (Reported) Sennosides (Senna) 8.6 Mg Tablet, 17.2 MG PO QHS PRN for CONSTIPATION, (Reported) Allergies Coded Allergies: Penicillins (Verified Allergy, Intermediate, hives, 12/05/18) RUBIO MANDUJANO MD Dec 23, 2018 10:45
== END 2018-12-23 12:00 | DRG 808 ==
LOC: M ED 14:40 → M ED INP 21:00 → M PCU 23:49 → M MSPAV 12-06 22:39
PROVIDERS: ADMIT Internal Medicine; ATTEND Internal Medicine
PROC: 30233N1 Transfusion of Nonautologous Red Blood Cells into Peripheral Vein, Percutaneous Approach (ICD-10-PCS; principal; 2018-12-05)
DX: D61.818 Other pancytopenia (principal); G93.41 Metabolic encephalopathy; R17 Unspecified jaundice; D58.1 Hereditary elliptocytosis; F32.9 Major depressive disorder, single episode, unspecified; F09 Unspecified mental disorder due to known physiological condition; D51.0 Vitamin B12 deficiency anemia due to intrinsic factor deficiency; E03.9 Hypothyroidism, unspecified; Z79.899 Other long term (current) drug therapy; Z88.0 Allergy status to penicillin; M79.7 Fibromyalgia; M06.9 Rheumatoid arthritis, unspecified; M51.36 Other intervertebral disc degeneration, lumbar region; N92.0 Excessive and frequent menstruation with regular cycle

== ENCOUNTER 2018-12-23 11:06 | Inpatient (IN) | payer MEDICAID ==
[~2018-12-23] VITALS: Ht 160 cm; Wt 68.6 kg
[~2018-12-23 11:06] MED LIST: ACET-683 PO; AZIT-12 PO; CYAN1000VL IM; FERR325T3 PO; GABA-1171 PO; HALO1TA PO; LEVO25TA5 PO; OMEP40CA97 PO; POTA20TA6 PO; PRED10PA2 PO; PSEU30TA88 PO; SENN1TAB8 PO; SENN8.6T28 PO; SERT-138 PO; VENTAER INH; VITA500C24 PO
[2018-12-23 12:10] VITALS: BP 114/53
[2018-12-23 14:00] VITALS: BP 139/86
[2018-12-23] MEDS ORDERED: ALBUTEROL 90 MCG/ACT 8GM HFA INHALER INH PRN (14:30)
[2018-12-23] MEDS ORDERED: ACETAMINOPHEN TAB 650MG DOSE (2X325MG) PO PRN (14:30)
[2018-12-23] MEDS ORDERED: CALCIUM CARBONATE 500 MG CHEW U/D PO PRN (14:30)
[2018-12-23] MEDS ORDERED: GABAPENTIN 100 MG CAP PO SCH (16:00)
[2018-12-23] MEDS: FOLIC ACID 1 MG TAB PO SCH (16:26)
[2018-12-23] MEDS: ACETAMINOPHEN 500 MG TAB PO SCH ×2 (16:27→20:20)
[2018-12-23] MEDS ORDERED: diphenhydrAMINE 25 MG CAP PO SCH (18:00)
--- NOTE | 2018-12-23 19:13 | HPEPDOC ---
Learning Designer Note DATE OF ADMISSION: 12-23-18 SOURCE OF ADMISSION INFORMATION: [facility] records and patient CHIEF COMPLAINT: ataxia with bilat UE tremor HISTORY OF PRESENT ILLNESS: 43F pmh Low back pain with sciatica, hypothyroidism, depression, iron-deficiency anemia, degenerative disc disease, fibromyalgia who presented to [facility] ED on 12-05-18 with dyspnea, palpitations, tinnitus, weight loss, paranoia and agitation found to have severe vitamin B 12 deficiency. She was noted to have pernicious anemia with an elevated parietal cell antibody in the setting of pancytopenia. She presented neurologically with hyperreflexia, UE tremor, and ataxia with episodes of encephalopathy thought to be due to metabolic derangement. She was evaluated by GI for RUQ pain with imaging confirming gallstones who recommended upper endoscopy and colonoscopy, but patient refused, wanting to have it done in [place], closer to home. She was started on IM vitamin B12 and folic acid. MRI brain did not show pathology. She was seen by orthopedics for longstanding sciatica and offered no surgical intervention with MRI pelvis on 12-07-18 showing, No bone marrow edema or occult fracture. No evidence of avascular necrosis or labral tear. There are findings suggesting mild right sided greater trochanteric tendinobursitis. On the left edema along the iliotibial tract suggests diffuse tendinitis. Mild free fluid in the pelvis. She was also evaluated by psychiatry for her paranoia and psychosis and started on Haldol in addition to standing benadryl for extrapyramidal symptoms. Patient was able to participate in therapy, found to be below her prior level of function, with a recent onset of UE tremor and ataxia and deemed medically appropriate for discharge to ARU on 12-23-18. On initial evaluation patient reports her tremor began a couple months ago when she was started on Gabapentin and does not believe it began in the hospital with the initiation of Haldol. REVIEW OF SYSTEMS: The following is a completed review of systems and has been reviewed. Review of systems otherwise unremarkable. PAIN: Patient self reports no pain EYES: No recent vision changes EARS, NOSE, & THROAT: No throat pain, or dysphagia, or rhinorrhea CARDIOVASCULAR: Denies chest pain or palpitations PULMONARY: Denies shortness of breath GASTROINTESTINAL: Denies constipation/diarrhea GENITOURINARY: +questionable retention MUSCULOSKELETAL: sciatic NEUROLOGICAL:+ataxia, bilat UE tremor HEMATOLOGICAL: +pancytopenia SKIN: no rash PSYCHIATRIC: Unremarkable All other review of systems found to be negative. PAST MEDICAL HISTORY: as per HPI PAST SURGICAL HISTORY: Tonsillectomy, adenoidectomy, ALLERGIES: Please see below. MEDICATIONS: Please see below. SOCIAL HISTORY: no etoh/smoking/drug use DIET: regular PHYSICAL EXAMINATION: VITAL SIGNS: Please see below. GENERAL: Pleasant and cooperative. No acute distress. HEENT: PERRL. Extraocular movements intact. Clear conjunctiva CARDIOVASCULAR: Regular rate and rhythm. No murmurs, rubs, or gallops LUNGS: Clear to auscultation bilaterally. No wheezes. No rhonchi ABDOMEN: Soft, nontender, nondistended. Positive bowel sounds. Normal active bowel sounds NEUROLOGICAL: Alert and oriented times three. Cranial nerves II through XII grossly intact. Sensation grossly intact. +Bilat UE tremors R>L with akathisias EXTREMITIES: 5\5 strength bilateral upper extremities. 5\5 strength right lower extremity. 5/5 strength in left lower extremity. SKIN: intact LABORATORY DATA: Please see below. IMAGING:Imaging documentation personally reviewed by record FUNCTIONAL STATUS: Premorbid: Independent with all activities of daily life as well as mobility On Admission: Contact guard assistance for bathing, upper body dressing, bed chair and wheelchair transfers, toilet transfers, ambulation with RW GOALS: Mod-I with RW community distances, functional trasnfers, stairs, bathing, dressing, toileting, medical optimization, caregiver training ASSESSMENT:43-year-old F with past medical history of anemia, fibromyalgia who presents status post metabolic encephalopathy with neuromuscular disorder presenting with ataxia and bilat UE tremor in setting of severe vitamin B12 deficiency PLAN: 1. Rehab- PT/OT advance gait training, ADL management, consider use of adaptive equipment to mitigate tremor 2. Neuro: patient with severe vitamin B12 deficiency resulting in neuromuscular impairment with ataxic gait, bilat UE tremor, and weakness -episodes of psychosis also thought to be due to B12 impairment- c/u B12 supplements -bilat UE tremors, per patient she believes they started with Gabapentin, however may have coincided with worsening B12 levels- will d/c Gabapentin and monitor -will trial low dose propranolol for tremor/akathisias -will need outpatient neuro EMG/NCS 3. PSych: pmh depression, c/u ZOloft -c/u Haldol for psychosis and attempt to taper as may be worsening tremors -benadryl for EPS prevention- will need psych f/u 4. Heme: pancytopenia- will refer for heme outpatient-monitor for bleeding, -c/u iron, folic acid, and IM B12 supplement- will recheck B12 levels and possib le adjust prn prior to discharge 5. CArdiac: no hx, medicine consulted to assist in overall management 6. resp: encourage incentive spirometry 7. DVT ppx: TEDs 8. Endo: hypothryoidism- c/u synthroid 8. GI: ppx- omperazole -needs to f/u with GI for endoscopy for H. Pylori testing and colonoscopy -not complaining of RUQ currently, will consult surgery if cholelithiasis becomes symptomatic 9. : pisano in [place], will d./c tomorrow and monitor PVRs 10. DIspo: TBD POST ADMISSION PHYSICIAN EVALUATION: Medical and functional status: Description of medical status, medical assessment: As above. Rehabilitation diagnosis and current and prior cold morbid medical conditions as above. Risk of complications and plans to mitigate them as above. Description of functional status current status is as above. Prior status as above. Status compared to preadmission: There are no clinically significant differences between the patient's current status and the information described on the preadmission screening document. Treatment plan anticipated: Treatment plan is as described above. Required disciplines including physical therapy, occupational therapy, others as noted above. Intensity of services: 3 hours a day, 6 days a week. Special considerations: There are no specific special or safety considerations that would likely preclude immediate implementation of an intensive rehabilitation program or subsequently influence the plan of care ATTESTATION: Considering all the information above, it is my best judgment that this patient requires intensive rehabilitation therapy as described above and an inpatient hospital environment due to the complexity of nursing, medical, and rehabilitation needs required by the patient. Furthermore, this patient can reasonably be expected to participate in an benefit from an inpatient rehabilitation stay with an interdisciplinary team approach to the delivery of rehabilitation care under the direction and supervision of rehabilitation physician PROGNOSIS: Excellent ESTIMATED LENGTH OF STAY:8-10days. PROJECTED DISCHARGE DESTINATION: Home with family support and any durable medical equipment required to increase functional safety and mobility. TIME SPENT COUNSELING AND COORDINATING INITIAL CARE: Greater than 70 minutes. Vital Signs Vital Sign - Last 24 Hours 12/23/18 12/23/18 12:10 14:00 Temp 97.3 99.4 Pulse 55 66 Resp 18 22 B/P (MAP) 114/53 (73) 139/86 (103) Pulse Ox 100 96 O2 Delivery Room Air Room Air Home Medications Scheduled Acetaminophen (Acetaminophen) 500 Mg Tablet, 500 MG PO BID, (Reported) Ascorbic Acid (Vitamin C) 500 Mg Capsule, 500 MG PO BID, (Reported) Cyanocobalamin (Cyanocobalamin Injection) 1,000 Mcg/1 Ml Vial, 1,000 MCG IM MTHLY Ferrous Sulfate (Ferrous Sulfate) 325 Mg Tablet.dr, 325 MG PO DAILY, (Reported) Gabapentin (Gabapentin) 100 Mg Capsule, 100 MG PO DAILY, (Reported) Haloperidol (Haloperidol) 1 Mg Tablet, 1 MG PO DAILY Levothyroxine Sodium (Levothyroxine Sodium) 25 Mcg Tablet, 25 MCG PO DAILY, (Reported) Omeprazole (Omeprazole) 40 Mg Capsule.dr, 40 MG PO DAILY, (Reported) Potassium Chloride (Potassium Chloride) 20 Meq Tab.er.prt, 1 TAB PO DAILY Sertraline HCl (Sertraline HCl) 100 Mg Tablet, 100 MG PO BID, (Reported) Scheduled PRN Albuterol Sulfate (Ventolin Hfa) 18 Gm Hfa.aer.ad, 2 PUFF INH Q4-6HP PRN for wheezing, (Reported) Sennosides (Senna) 8.6 Mg Tablet, 17.2 MG PO QHS PRN for CONSTIPATION, (Reported) Allergies Coded Allergies: Penicillins (Verified Allergy, Intermediate, hives, 12/05/18) A-FIB/CHADSVASC A-FIB History Current/History of A-Fib/PAF?: No CHRISTOPHER CALVO MD Dec 23, 2018 19:13
[2018-12-23 19:45] VITALS: BP 126/88
[2018-12-23] MEDS: SERTRALINE HCL 25 MG TABLET PO SCH (20:20)
[2018-12-23] MEDS: HALOPERIDOL 1 MG TAB PO SCH (20:20)
[2018-12-23] MEDS: ASCORBIC ACID 500 MG TAB PO SCH (20:20)
[2018-12-23] MEDS: SENNA 8.6 MG TAB (SENOKOT) PO SCH (20:20)
[2018-12-23] MEDS: DOCUSATE SODIUM 100 MG CAP PO SCH (20:20)
[2018-12-24 05:40] VITALS: BP 110/65
[2018-12-24] MEDS: LEVOTHYROXINE 25MCG TABLET (0.025MG) PO SCH (05:56)
[2018-12-24 07:19] LABS: BASO # 0.1 10^3/uL (0.0-0.2); BASO % 1.3 % (0.0-1.0); EOS # 0.1 10^3/uL (0.0-0.5); EOS % 3.1 % (0.0-3.0); HEMATOCRIT 31.6 % (36.0-47.0); HEMOGLOBIN 10.4 g/dl (12.0-15.5); LYMPH # 1.3 10^3/uL (1.5-5.0); LYMPH % 32.6 % (24.0-44.0); MEAN CORPUSCULAR HEMOGLOBIN 35.4 pg (27.0-33.0); MEAN CORPUSCULAR HGB CONC 32.9 g/dl (32.0-36.5); MEAN CORPUSCULAR VOLUME 107.5 fl (80.0-96.0); MONO # 0.4 10^3/uL (0.0-0.8); MONO % 9.6 % (0.0-5.0); NEUTROPHILS # 2.1 10^3/uL (1.5-8.5); NEUTROPHILS % 53.1 % (36.0-66.0); PLATELET COUNT, AUTOMATED 207 10^3/uL (150-450); RED BLOOD COUNT 2.94 10^6/uL (4.00-5.40); WHITE BLOOD COUNT 3.9 10^3/uL (4.0-10.0)
--- NOTE | 2018-12-24 07:46 | CR.PDOC ---
General Date of Consultation: Dec 24, 2018 Consultation CC: Medical Management History of present illness This is a 43-year-old female with newly diagnised B12 deficiency, pancytopenia secondary to B12 deficiency with pernicious anemia, hypothyroidism, unable to be discharged due to poor balance and has not passed a home safety evaluation. For her Newly diagnosed pancytopenia secondary to pernicious anemia, currently on B12 , now IM shot monthly , folic acid, on iron supplements. Neurology followup as outpatient for electromyelogram (EMG) and nerve conduction studies. EMG and nerve conduction studies as an outpatient. The patient had MRI of head with cervical lumbar and thoracic spine which did not show any major abnormalities. GI has already evaluated the patient and she would require an outpatient follow- up . For Paranoia and agitation. Improved, Evaluated by psychiatrist. She was put on Haldol 2 mg 4 times a day, which could be leading to some dyskinesias here and intentional tremors. For that reason, the dose has been decreased to 1mg daily on DC. She also has Subacute degeneration of the spine due to vitamin B12 deficiency from pernicious anemia. Continued on vitamin B12. Neurology followup as outpatient. Her Menorrhagia, resolved,and it was due to pancytopenia. Initially she had Hemolytic anemia with elevated LDH and low haptoglobin due to vitamin B12 deficiency. Now hemoglobin has been stable. She was medically optimized for DC yesterday and we are folloing in ARU Physical examination Generally, awake, alert, oriented to person, place, time. Answering questions appropriately. No respiratory distress. No cyanosis. The patient has good eye contact. Does not appear to be withdrawn. Anicteric sclerae. No jaundice. Lungs are clear to auscultation. No wheezing, rales, or rhonchi. Heart: S1, S2, sinus rhythm. Abdomen is soft, nontender, nondistended. Positive bowel sounds. No rebound, guarding. No hepatosplenomegaly. Extremities: No cyanosis, clubbing, or pitting edema. Intentional right-sided hand tremors REVIEW OF SYSTEMS: 12 point review of systems negative except as listed in HPI PAST MEDICAL/ SURGICAL HISTORY: Hypothyroidism Rheumatoid arthritis Pernecious anemia Iron deficiency anemia. DJD affecting the lower back. Fibromyalgia. Status post . Status post tonsillectomy and adenoidectomy SOCIAL HISTORY: Does not smoke. Does not drink. Does not use alcohol and has a daughter FAMILY HISTORY: OA. Diabetes Rheumatoid arthritis. Fibromyalgia Denies family history of leukemia or cancers. ALLERGIES: Please see below. HOME MEDICATIONS: Please see below. ASSESSMENT AND PLAN: This is a 43-year-old female with B12 deficiency, pancytopenia secondary to B12 deficiency with pernicious anemia, hypothyroidism, unable to be discharged due to poor balance now in ARU 1. Newly diagnosed pernicious anemia, currently on B12, folic acid, on iron supplements. Neurology followup as outpatient for electromyelogram (EMG) and nerve conduction studies. EMG and nerve conduction studies as an outpatient. The patient had MRI of head with cervical lumbar and thoracic spine which did not show any major abnormalities. GI has already evaluated the patient and she would require an outpatient follow-up. Monthly vitmin b12 shots 2. Paranoia and agitation. Improved, Evaluated by psychiatrist. She was put on Haldol 2 mg 4 times a day, which could be leading to some dyskinesias here and intentional tremors. For that reason, the dose has been decreased to 1mg daily 3. 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 Continued on vitamin B12. Neurology followup as outpatient. 4. Menorrhagia, resolved, due to pancytopenia. 5. Abdominal pain. No acute cholecystitis. Tolerating a diet with nausea or vomiting. 6. Hemolytic anemia with elevated LDH and low haptoglobin due to vitamin B12 deficiency. Now hemoglobin has been stable. 7. Hypothyroidism, on Synthroid. Rehab as per ARU Activity as per ARU Vital Signs/I&O Vital Signs Date Time Temp Pulse Resp B/P (MAP) Pulse Ox O2 Delivery O2 Flow Rate FiO2 12/24/18 05:40 97.6 68 18 110/65 (80) 100 Room Air I&O- Last 24 Hours up to 6 AM 12/24/18 06:00 Intake Total 2300 ml Output Total 0 ml Balance 2300 ml Laboratory Data Labs 24H Laboratory Tests 2 12/24/18 07:00: Immature Granulocyte % (Auto) 0.3, Neutrophils (%) (Auto) 53.1, Lymphocytes (%) (Auto) 32.6, Monocytes (%) (Auto) 9.6H, Eosinophils (%) (Auto) 3.1H, Basophils (%) (Auto) 1.3H, Neutrophils # (Auto) 2.1, Lymphocytes # (Auto) 1.3L, Monocytes # (Auto) 0.4, Eosinophils # (Auto) 0.1, Basophils # (Auto) 0.1, Nucleated Red Blood Cells % (auto) 0.0 CBC/BMP Laboratory Tests 12/24/18 07:00 Allergies Coded Allergies: Penicillins (Verified Allergy, Intermediate, hives, 12/05/18) Home Medications Scheduled Acetaminophen (Acetaminophen) 500 Mg Tablet, 500 MG PO BID, (Reported) Ascorbic Acid (Vitamin C) 500 Mg Capsule, 500 MG PO BID, (Reported) Cyanocobalamin (Cyanocobalamin Injection) 1,000 Mcg/1 Ml Vial, 1,000 MCG IM MTHLY for 30 Days, #2 Ferrous Sulfate (Ferrous Sulfate) 325 Mg Tablet.dr, 325 MG PO DAILY, (Reported) Gabapentin (Gabapentin) 100 Mg Capsule, 100 MG PO DAILY, (Reported) Haloperidol (Haloperidol) 1 Mg Tablet, 1 MG PO DAILY, #14 Levothyroxine Sodium (Levothyroxine Sodium) 25 Mcg Tablet, 25 MCG PO DAILY, (Reported) Omeprazole (Omeprazole) 40 Mg Capsule.dr, 40 MG PO DAILY, (Reported) Potassium Chloride (Potassium Chloride) 20 Meq Tab.er.prt, 1 TAB PO DAILY for 30 Days, #30 Sertraline HCl (Sertraline HCl) 100 Mg Tablet, 100 MG PO BID, (Reported) Scheduled PRN Albuterol Sulfate (Ventolin Hfa) 18 Gm Hfa.aer.ad, 2 PUFF INH Q4-6HP PRN for wheezing, (Reported) Sennosides (Senna) 8.6 Mg Tablet, 17.2 MG PO QHS PRN for CONSTIPATION, (Reported) RUBIO MANDUJANO MD Dec 24, 2018 07:43
[2018-12-24 07:48] LABS: ALBUMIN 3.5 GM/DL (3.2-5.2); ALT/SGPT 95 U/L (12-78); BILIRUBIN,TOTAL 1.2 MG/DL (0.2-1.0); BLOOD UREA NITROGEN 17 MG/DL (7-18); CARBON DIOXIDE LEVEL 28 MEQ/L (21-32); CHLORIDE LEVEL 107 MEQ/L (98-107); GLOMERULAR FILTRATION RATE > 60.0 (>58); GLUCOSE, FASTING 76 MG/DL (70-100); POTASSIUM SERUM 3.9 MEQ/L (3.5-5.1); SODIUM LEVEL 141 MEQ/L (136-145); TOTAL PROTEIN 6.5 GM/DL (6.4-8.2)
[2018-12-24] MEDS ORDERED: ENOXAPARIN 40 MG/0.4 ML SYRINGE (J1650) SC SCH (09:00)
[2018-12-24] MEDS: OMEPRAZOLE 20 MG CAP PO SCH (09:01)
[2018-12-24] MEDS: DOCUSATE SODIUM 100 MG CAP PO SCH ×2 (09:01→20:31)
[2018-12-24] MEDS: ACETAMINOPHEN 500 MG TAB PO SCH ×3 (09:01→20:31)
[2018-12-24] MEDS: FOLIC ACID 1 MG TAB PO SCH (09:02)
[2018-12-24] MEDS: POTASSIUM CHLORIDE 10 MEQ SR TABLET PO SCH (09:02)
[2018-12-24] MEDS: HALOPERIDOL 1 MG TAB PO SCH (09:02)
[2018-12-24] MEDS: ASCORBIC ACID 500 MG TAB PO SCH ×2 (09:02→20:30)
[2018-12-24] MEDS: CYANOCOBALAMIN 1,000 MCG/ML VIAL (J3420) IM SCH (09:02)
[2018-12-24] MEDS: FERROUS GLUCONATE 324 MG TAB PO SCH (09:02)
[2018-12-24] MEDS: SERTRALINE HCL 25 MG TABLET PO SCH ×2 (09:02→20:30)
[2018-12-24 14:00] VITALS: BP_SYST 120; BP_DIAS 40; BP_DIAS 78
[2018-12-24] MEDS: PROPRANOLOL 10 MG TAB PO SCH ×2 (16:22→20:31)
[2018-12-24] MEDS ORDERED: diphenhydrAMINE 25 MG CAP PO SCH (18:00)
[2018-12-24 20:25] VITALS: BP 126/74
[2018-12-24] MEDS: HALOPERIDOL 0.5 MG TAB PO SCH (20:30)
[2018-12-24] MEDS: SENNA 8.6 MG TAB (SENOKOT) PO SCH (20:31)
[2018-12-25 06:00] VITALS: BP 107/61
[2018-12-25] MEDS: LEVOTHYROXINE 25MCG TABLET (0.025MG) PO SCH (06:18)
[2018-12-25] MEDS: ASCORBIC ACID 500 MG TAB PO SCH ×2 (09:01→20:16)
[2018-12-25] MEDS: SERTRALINE HCL 25 MG TABLET PO SCH ×2 (09:01→20:16)
[2018-12-25] MEDS: FERROUS GLUCONATE 324 MG TAB PO SCH (09:01)
[2018-12-25] MEDS: FOLIC ACID 1 MG TAB PO SCH (09:01)
[2018-12-25] MEDS: HALOPERIDOL 0.5 MG TAB PO SCH ×2 (09:01→20:16)
[2018-12-25] MEDS: DOCUSATE SODIUM 100 MG CAP PO SCH ×2 (09:01→20:18)
[2018-12-25] MEDS: OMEPRAZOLE 20 MG CAP PO SCH (09:01)
[2018-12-25] MEDS: ACETAMINOPHEN 500 MG TAB PO SCH ×3 (09:02→20:17)
[2018-12-25] MEDS: PROPRANOLOL 10 MG TAB PO SCH ×3 (09:02→20:17)
[2018-12-25] MEDS: CYANOCOBALAMIN 1,000 MCG/ML VIAL (J3420) IM SCH (09:03)
[2018-12-25] MEDS: POTASSIUM CHLORIDE 10 MEQ SR TABLET PO SCH (09:03)
[2018-12-25 14:00] VITALS: BP 120/70
[2018-12-25] MEDS: SENNA 8.6 MG TAB (SENOKOT) PO SCH (20:18)
[2018-12-25 22:00] VITALS: BP 118/55
[2018-12-26] MEDS: LEVOTHYROXINE 25MCG TABLET (0.025MG) PO SCH (05:35)
[2018-12-26 05:58] VITALS: BP 118/56
[2018-12-26 06:48] LABS: HEMATOCRIT 32.2 % (36.0-47.0); HEMOGLOBIN 10.6 g/dl (12.0-15.5); MEAN CORPUSCULAR HEMOGLOBIN 36.1 pg (27.0-33.0); MEAN CORPUSCULAR HGB CONC 32.9 g/dl (32.0-36.5); MEAN CORPUSCULAR VOLUME 109.5 fl (80.0-96.0); PLATELET COUNT, AUTOMATED 200 10^3/uL (150-450); RED BLOOD COUNT 2.94 10^6/uL (4.00-5.40); WHITE BLOOD COUNT 4.1 10^3/uL (4.0-10.0)
[2018-12-26 07:13] LABS: BLOOD UREA NITROGEN 13 MG/DL (7-18); CALCIUM LEVEL 8.9 MG/DL (8.5-10.1); CARBON DIOXIDE LEVEL 30 MEQ/L (21-32); CHLORIDE LEVEL 108 MEQ/L (98-107); GLOMERULAR FILTRATION RATE > 60.0 (>58); GLUCOSE, FASTING 77 MG/DL (70-100); POTASSIUM SERUM 4.2 MEQ/L (3.5-5.1); SODIUM LEVEL 141 MEQ/L (136-145)
[2018-12-26] MEDS: OMEPRAZOLE 20 MG CAP PO SCH (07:29)
[2018-12-26] MEDS: SERTRALINE HCL 25 MG TABLET PO SCH ×2 (07:29→21:41)
[2018-12-26] MEDS: CYANOCOBALAMIN 1,000 MCG/ML VIAL (J3420) IM SCH (07:29)
[2018-12-26] MEDS: FOLIC ACID 1 MG TAB PO SCH (07:29)
[2018-12-26] MEDS: POTASSIUM CHLORIDE 10 MEQ SR TABLET PO SCH (07:29)
[2018-12-26] MEDS: DOCUSATE SODIUM 100 MG CAP PO SCH ×2 (07:29→21:40)
[2018-12-26] MEDS: PROPRANOLOL 10 MG TAB PO SCH ×3 (07:30→21:40)
[2018-12-26] MEDS: FERROUS GLUCONATE 324 MG TAB PO SCH (07:30)
[2018-12-26] MEDS: ACETAMINOPHEN 500 MG TAB PO SCH ×3 (07:30→21:40)
[2018-12-26] MEDS: ASCORBIC ACID 500 MG TAB PO SCH ×2 (07:30→21:41)
[2018-12-26] MEDS: HALOPERIDOL 0.5 MG TAB PO SCH (07:31)
[2018-12-26 14:00] VITALS: BP 127/68
[2018-12-26 20:10] VITALS: BP 120/60
[2018-12-26] MEDS: SENNA 8.6 MG TAB (SENOKOT) PO SCH (21:41)
[2018-12-27] MEDS: LEVOTHYROXINE 25MCG TABLET (0.025MG) PO SCH (05:22)
[2018-12-27 05:23] VITALS: BP 120/78
[2018-12-27] MEDS: DOCUSATE SODIUM 100 MG CAP PO SCH ×2 (09:12→21:00)
[2018-12-27] MEDS: ACETAMINOPHEN 500 MG TAB PO SCH ×3 (09:12→21:19)
[2018-12-27] MEDS: PROPRANOLOL 10 MG TAB PO SCH ×3 (09:13→21:19)
[2018-12-27] MEDS: FOLIC ACID 1 MG TAB PO SCH (09:13)
[2018-12-27] MEDS: FERROUS GLUCONATE 324 MG TAB PO SCH (09:13)
[2018-12-27] MEDS: POTASSIUM CHLORIDE 10 MEQ SR TABLET PO SCH (09:13)
[2018-12-27] MEDS: ASCORBIC ACID 500 MG TAB PO SCH ×2 (09:13→21:19)
[2018-12-27] MEDS: OMEPRAZOLE 20 MG CAP PO SCH (09:14)
[2018-12-27] MEDS: SERTRALINE HCL 25 MG TABLET PO SCH ×2 (09:14→21:19)
[2018-12-27 14:00] VITALS: BP 108/63
[2018-12-27] MEDS ORDERED: LEVO25TA5 PO (14:14)
[2018-12-27] MEDS ORDERED: FOLI1TAB11 PO (14:14)
[2018-12-27] MEDS ORDERED: CYAN1000VL IM (14:14)
[2018-12-27] MEDS ORDERED: SERT25TA21 PO (14:14)
[2018-12-27] MEDS ORDERED: FERR32TA PO (14:14)
[2018-12-27] MEDS ORDERED: OMEP-218 PO (14:14)
[2018-12-27] MEDS ORDERED: KLOR10TA76 PO (14:14)
[2018-12-27] MEDS ORDERED: PROP10TA56 PO (14:14)
[2018-12-27] MEDS: SENNA 8.6 MG TAB (SENOKOT) PO SCH (21:00)
[2018-12-27 22:00] VITALS: BP 141/86
[2018-12-28] MEDS: LEVOTHYROXINE 25MCG TABLET (0.025MG) PO SCH (06:10)
[2018-12-28] MEDS: OMEPRAZOLE 20 MG CAP PO SCH (08:15)
[2018-12-28] MEDS: ASCORBIC ACID 500 MG TAB PO SCH ×2 (08:15→20:08)
[2018-12-28] MEDS: SERTRALINE HCL 25 MG TABLET PO SCH ×2 (08:15→20:08)
[2018-12-28] MEDS: PROPRANOLOL 10 MG TAB PO SCH ×3 (08:16→20:09)
[2018-12-28] MEDS: POTASSIUM CHLORIDE 10 MEQ SR TABLET PO SCH (08:16)
[2018-12-28] MEDS: FOLIC ACID 1 MG TAB PO SCH (08:16)
[2018-12-28] MEDS: DOCUSATE SODIUM 100 MG CAP PO SCH ×2 (08:16→20:08)
[2018-12-28] MEDS: FERROUS GLUCONATE 324 MG TAB PO SCH (08:16)
[2018-12-28] MEDS: ACETAMINOPHEN 500 MG TAB PO SCH ×3 (08:16→20:09)
[2018-12-28] MEDS: LIDOCAINE 5% (LIDODERM) PATCH TD SCH (10:31)
--- NOTE | 2018-12-28 12:02 | IPNPDOC ---
PM&R Progress Note DATE OF SERVICE: Dec 26, 2018 Cocoa Roaster Progress Note Subjective: Patient reporting she feels much stronger and is eager to get home by Halloween. REVIEW OF SYSTEMS: The following is a completed review of systems and has been reviewed. Review of systems otherwise unremarkable. PAIN: Patient self reports no pain EYES: No recent vision changes EARS, NOSE, & THROAT: No throat pain, or dysphagia, or rhinorrhea CARDIOVASCULAR: Denies chest pain or palpitations PULMONARY: Denies shortness of breath GASTROINTESTINAL: Denies constipation/diarrhea GENITOURINARY: +questionable retention MUSCULOSKELETAL: sciatic NEUROLOGICAL:+ataxia, bilat UE tremor HEMATOLOGICAL: +pancytopenia SKIN: no rash PSYCHIATRIC: Unremarkable All other review of systems found to be negative. PHYSICAL EXAMINATION: VITAL SIGNS: Please see below. GENERAL: Pleasant and cooperative. No acute distress. HEENT: PERRL. Extraocular movements intact. Clear conjunctiva CARDIOVASCULAR: Regular rate and rhythm. No murmurs, rubs, or gallops LUNGS: Clear to auscultation bilaterally. No wheezes. No rhonchi ABDOMEN: Soft, nontender, nondistended. Positive bowel sounds. Normal active bowel sounds NEUROLOGICAL: Alert and oriented times three. Cranial nerves II through XII grossly intact. Sensation grossly intact. +Bilat UE tremors R>L with akathisias EXTREMITIES: 5\5 strength bilateral upper extremities. 5\5 strength right lower extremity. 5/5 strength in left lower extremity. SKIN: intact GOALS: Mod-I with RW community distances, functional transfers, stairs, bathing, dressing, toileting, medical optimization, caregiver training ASSESSMENT:43-year-old F with past medical history of anemia, fibromyalgia who presents status post metabolic encephalopathy with neuromuscular disorder presenting with ataxia and bilat UE tremor in setting of severe vitamin B12 deficiency PLAN: 1. Rehab- PT/OT advance gait training, ADL management, consider use of adaptive equipment to mitigate tremor 2. Neuro: patient with severe vitamin B12 deficiency resulting in neuromuscular impairment with ataxic gait, bilat UE tremor, and weakness -episodes of psychosis also thought to be due to B12 impairment- c/u B12 supplements -bilat UE tremors, per patient she believes they started with Gabapentin, however may have coincided with worsening B12 levels- will d/c Gabapentin and monitor -c/u propranolol for tremor/akathisias -will need outpatient neuro EMG/NCS 3. PSych: pmh depression, c/u ZOloft -c/u Haldol for psychosis, will c/u to taper -benadryl for EPS prevention- will consider psych f/u 4. Heme: pancytopenia- will refer for heme outpatient-monitor for bleeding, -c/u iron, folic acid, and IM B12 supplement- repeat B12 levels pending 5. CArdiac: no hx, medicine consulted to assist in overall management 6. resp: encourage incentive spirometry 7. DVT ppx: TEDs 8. Endo: hypothryoidism- c/u synthroid 8. GI: ppx- omperazole -needs to f/u with GI for endoscopy for H. Pylori testing and colonoscopy- patient has agreed to see Dr. Mendez -not complaining of RUQ currently, will consult surgery if cholelithiasis becomes symptomatic 9. : monitor PVRs, voiding well 10. DIspo: TBD Allergies Coded Allergies: Penicillins (Verified Allergy, Intermediate, hives, 12/05/18) Vital Signs Vital Signs Date Time Temp Pulse Resp B/P (MAP) Pulse Ox O2 Delivery O2 Flow Rate FiO2 12/28/18 08:16 79 108/63 12/27/18 22:00 98.0 17 99 Room Air Current Medications Current Medications Current Medications Medications (Trade) Dose Ordered Sig/David Route PRN Reason Start Time Stop Time Status Last Admin Dose Admin Acetaminophen (Tylenol Tab) 650 mg Q4HP PRN PO MILD PAIN (PS 1-4) 12/23/18 14:30 12/24/18 23:01 Acetaminophen (Tylenol Tab) 1,000 mg TID PO 12/23/18 16:00 12/28/18 08:16 Albuterol Sulfate (Proventil, Ventolin Hfa) 2 puff RQ4H PRN INH SHORTNESS OF BREATH 12/23/18 14:30 Ascorbic Acid (Vitamin C) 500 mg BID PO 12/23/18 21:00 12/28/18 08:15 Calcium Carbonate (Tums) 1,000 mg Q4HP PRN PO HEARTBURN 12/23/18 14:30 Cyanocobalamin (Vitamin B12 Injection) 1,000 mcg DAILY IM 12/24/18 09:00 12/26/18 18:16 DC 12/26/18 07:29 Cyanocobalamin (Vitamin B12 Injection) 1,000 mcg Mo@0900 IM 01/02/19 09:00 Diphenhydramine HCl (Benadryl) 25 mg Q6H PO 12/23/18 18:00 12/23/18 19:15 DC 12/23/18 18:06 Diphenhydramine HCl (Benadryl) 25 mg Q8HP PO 12/24/18 18:00 12/26/18 18:16 DC 12/24/18 23:00 Docusate Sodium (Colace) 100 mg BID PO 12/23/18 21:00 12/28/18 08:16 Enoxaparin Sodium (Lovenox) 40 mg DAILY SC 12/24/18 09:00 12/24/18 12:24 DC 12/24/18 09:03 Ferrous Gluconate (Fergon) 324 mg DAILY PO 12/24/18 09:00 12/28/18 08:16 Folic Acid (Folic Acid) 2 mg DAILY PO 12/23/18 09:00 12/28/18 08:16 Gabapentin (Neurontin) 100 mg TID PO 12/23/18 16:00 12/23/18 19:36 DC 12/23/18 16:25 Haloperidol (Haldol) 0.5 mg BID PO 12/24/18 21:00 12/26/18 18:16 DC 12/26/18 07:31 Haloperidol (Haldol) 1 mg BID PO 12/23/18 21:00 12/24/18 12:24 DC 12/24/18 09:02 Home Med (Med Rec Complete!) ASDIRECTED XX 12/23/18 15:00 12/23/18 15:17 DC Levothyroxine Sodium (Synthroid) 25 mcg DAILY@06 PO 12/24/18 06:00 12/28/18 06:10 Lidocaine (Lidoderm Patch) 1 patch DAILY TD 12/28/18 09:00 12/28/18 10:31 Non-Formulary Medication ( See Comment Field Below ) REMOVE LIDODERM PATCH DAILY@21 XX 12/28/18 21:00 Omeprazole (PriLOSEC) 40 mg DAILY PO 12/24/18 09:00 12/28/18 08:15 Potassium Chloride (Micro-K Extencaps) 40 meq DAILY PO 12/24/18 09:00 12/28/18 08:16 Propranolol HCl (Inderal) 5 mg TID PO 12/24/18 16:00 12/26/18 18:16 DC 12/26/18 16:22 Propranolol HCl (Inderal) 10 mg TID PO 12/26/18 21:00 12/28/18 08:16 Senna (Senokot) 1 tab QHS PO 12/23/18 21:00 12/26/18 21:41 Sertraline HCl (Zoloft) 25 mg BID PO 12/23/18 21:00 12/28/18 08:15 CHRISTOPHER CALVO MD Dec 28, 2018 12:02
--- NOTE | 2018-12-28 12:04 | IPNPDOC ---
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 REVIEW OF SYSTEMS: The following is a completed review of systems and has been reviewed. Review of systems otherwise unremarkable. PAIN: Patient self reports no pain EYES: No recent vision changes EARS, NOSE, & THROAT: No throat pain, or dysphagia, or rhinorrhea CARDIOVASCULAR: Denies chest pain or palpitations PULMONARY: Denies shortness of breath GASTROINTESTINAL: Denies constipation/diarrhea GENITOURINARY: +questionable retention MUSCULOSKELETAL: sciatic NEUROLOGICAL:+ataxia, bilat UE tremor HEMATOLOGICAL: +pancytopenia SKIN: no rash PSYCHIATRIC: Unremarkable All other review of systems found to be negative. PHYSICAL EXAMINATION: VITAL SIGNS: Please see below. GENERAL: Pleasant and cooperative. No acute distress. HEENT: PERRL. Extraocular movements intact. Clear conjunctiva CARDIOVASCULAR: Regular rate and rhythm. No murmurs, rubs, or gallops LUNGS: Clear to auscultation bilaterally. No wheezes. No rhonchi ABDOMEN: Soft, nontender, nondistended. Positive bowel sounds. Normal active bowel sounds NEUROLOGICAL: Alert and oriented times three. Cranial nerves II through XII grossly intact. Sensation grossly intact. +Bilat UE tremors R>L with akathisias EXTREMITIES: 5\5 strength bilateral upper extremities. 5\5 strength right lower extremity. 5/5 strength in left lower extremity. SKIN: intact GOALS: Mod-I with RW community distances, functional transfers, stairs, bathing, dressing, toileting, medical optimization, caregiver training ASSESSMENT:43-year-old F with past medical history of anemia, fibromyalgia who presents status post metabolic encephalopathy with neuromuscular disorder presenting with ataxia and bilat UE tremor in setting of severe vitamin B12 deficiency PLAN: 1. Rehab- PT/OT advance gait training, ADL management, consider use of adaptive equipment to mitigate tremor 2. Neuro: patient with severe vitamin B12 deficiency resulting in neuromuscular impairment with ataxic gait, bilat UE tremor, and weakness -episodes of psychosis also thought to be due to B12 impairment- c/u B12 supplement qmonthly -bilat UE tremors, per patient she believes they started with Gabapentin, however may have coincided with worsening B12 levels- will d/c Gabapentin and monitor -c/u propranolol for tremor/akathisias -will need outpatient neuro EMG/NCS 3. PSych: pmh depression, c/u ZOloft -will d/c haldol -benadryl for EPS prevention- will consider psych f/u 4. Heme: pancytopenia- will refer for heme outpatient-monitor for bleeding, -c/u iron, folic acid, and IM B12 supplement- repeat B12 levels >2000, c/u with monthly injection 5. CArdiac: no hx, medicine consulted to assist in overall management 6. resp: encourage incentive spirometry 7. DVT ppx: TEDs 8. Endo: hypothryoidism- c/u synthroid 8. GI: ppx- omeprazole -needs to f/u with GI for endoscopy for H. Pylori testing and colonoscopy- patient has agreed to see Dr. Mendez -not complaining of RUQ currently, will consult surgery if cholelithiasis becomes symptomatic 9. : monitor PVRs, voiding well 10. Dispo: 12-29-18 to home Allergies Coded Allergies: Penicillins (Verified Allergy, Intermediate, hives, 12/05/18) Vital Signs Vital Signs Date Time Temp Pulse Resp B/P (MAP) Pulse Ox O2 Delivery O2 Flow Rate FiO2 12/28/18 08:16 79 108/63 12/27/18 22:00 98.0 17 99 Room Air Current Medications Current Medications Current Medications Medications (Trade) Dose Ordered Sig/David Route PRN Reason Start Time Stop Time Status Last Admin Dose Admin Acetaminophen (Tylenol Tab) 650 mg Q4HP PRN PO MILD PAIN (PS 1-4) 12/23/18 14:30 12/24/18 23:01 Acetaminophen (Tylenol Tab) 1,000 mg TID PO 12/23/18 16:00 12/28/18 08:16 Albuterol Sulfate (Proventil, Ventolin Hfa) 2 puff RQ4H PRN INH SHORTNESS OF BREATH 12/23/18 14:30 Ascorbic Acid (Vitamin C) 500 mg BID PO 12/23/18 21:00 12/28/18 08:15 Calcium Carbonate (Tums) 1,000 mg Q4HP PRN PO HEARTBURN 12/23/18 14:30 Cyanocobalamin (Vitamin B12 Injection) 1,000 mcg DAILY IM 12/24/18 09:00 12/26/18 18:16 DC 12/26/18 07:29 Cyanocobalamin (Vitamin B12 Injection) 1,000 mcg Mo@0900 IM 01/02/19 09:00 Diphenhydramine HCl (Benadryl) 25 mg Q6H PO 12/23/18 18:00 12/23/18 19:15 DC 12/23/18 18:06 Diphenhydramine HCl (Benadryl) 25 mg Q8HP PO 12/24/18 18:00 12/26/18 18:16 DC 12/24/18 23:00 Docusate Sodium (Colace) 100 mg BID PO 12/23/18 21:00 12/28/18 08:16 Enoxaparin Sodium (Lovenox) 40 mg DAILY SC 12/24/18 09:00 12/24/18 12:24 DC 12/24/18 09:03 Ferrous Gluconate (Fergon) 324 mg DAILY PO 12/24/18 09:00 12/28/18 08:16 Folic Acid (Folic Acid) 2 mg DAILY PO 12/23/18 09:00 12/28/18 08:16 Gabapentin (Neurontin) 100 mg TID PO 12/23/18 16:00 12/23/18 19:36 DC 12/23/18 16:25 Haloperidol (Haldol) 0.5 mg BID PO 12/24/18 21:00 12/26/18 18:16 DC 12/26/18 07:31 Haloperidol (Haldol) 1 mg BID PO 12/23/18 21:00 12/24/18 12:24 DC 12/24/18 09:02 Home Med (Med Rec Complete!) ASDIRECTED XX 12/23/18 15:00 12/23/18 15:17 DC Levothyroxine Sodium (Synthroid) 25 mcg DAILY@06 PO 12/24/18 06:00 12/28/18 06:10 Lidocaine (Lidoderm Patch) 1 patch DAILY TD 12/28/18 09:00 12/28/18 10:31 Non-Formulary Medication ( See Comment Field Below ) REMOVE LIDODERM PATCH DAILY@21 XX 12/28/18 21:00 Omeprazole (PriLOSEC) 40 mg DAILY PO 12/24/18 09:00 12/28/18 08:15 Potassium Chloride (Micro-K Extencaps) 40 meq DAILY PO 12/24/18 09:00 12/28/18 08:16 Propranolol HCl (Inderal) 5 mg TID PO 12/24/18 16:00 12/26/18 18:16 DC 12/26/18 16:22 Propranolol HCl (Inderal) 10 mg TID PO 12/26/18 21:00 12/28/18 08:16 Senna (Senokot) 1 tab QHS PO 12/23/18 21:00 12/26/18 21:41 Sertraline HCl (Zoloft) 25 mg BID PO 12/23/18 21:00 12/28/18 08:15 CHRISTOPHER CALVO MD Dec 28, 2018 12:04
--- NOTE | 2018-12-28 12:05 | IPNPDOC ---
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 REVIEW OF SYSTEMS: The following is a completed review of systems and has been reviewed. Review of systems otherwise unremarkable. PAIN: Patient self reports no pain EYES: No recent vision changes EARS, NOSE, & THROAT: No throat pain, or dysphagia, or rhinorrhea CARDIOVASCULAR: Denies chest pain or palpitations PULMONARY: Denies shortness of breath GASTROINTESTINAL: Denies constipation/diarrhea GENITOURINARY: +questionable retention MUSCULOSKELETAL: sciatic NEUROLOGICAL:+ataxia, bilat UE tremor HEMATOLOGICAL: +pancytopenia SKIN: no rash PSYCHIATRIC: Unremarkable All other review of systems found to be negative. PHYSICAL EXAMINATION: VITAL SIGNS: Please see below. GENERAL: Pleasant and cooperative. No acute distress. HEENT: PERRL. Extraocular movements intact. Clear conjunctiva CARDIOVASCULAR: Regular rate and rhythm. No murmurs, rubs, or gallops LUNGS: Clear to auscultation bilaterally. No wheezes. No rhonchi ABDOMEN: Soft, nontender, nondistended. Positive bowel sounds. Normal active bowel sounds NEUROLOGICAL: Alert and oriented times three. Cranial nerves II through XII grossly intact. Sensation grossly intact. +Bilat UE tremors R>L with akathisias EXTREMITIES: 5\5 strength bilateral upper extremities. 5\5 strength right lower extremity. 5/5 strength in left lower extremity. SKIN: intact ASSESSMENT:43-year-old F with past medical history of anemia, fibromyalgia who presents status post metabolic encephalopathy with neuromuscular disorder presenting with ataxia and bilat UE tremor in setting of severe vitamin B12 deficiency PLAN: 1. Rehab- PT/OT advance gait training, ADL management, consider use of adaptive equipment to mitigate tremor 2. Neuro: patient with severe vitamin B12 deficiency resulting in neuromuscular impairment with ataxic gait, bilat UE tremor, and weakness -episodes of psychosis also thought to be due to B12 impairment- c/u B12 supplement qmonthly -bilat UE tremors, per patient she believes they started with Gabapentin, however may have coincided with worsening B12 levels- will d/c Gabapentin and monitor -c/u propranolol for tremor/akathisias -will need outpatient neuro EMG/NCS 3. PSych: pmh depression, c/u ZOloft -d/c'd haldol -benadryl for EPS prevention- will defer psych f/u as patient not agitated or psychotic off Haldol 4. Heme: pancytopenia- will refer for heme outpatient-monitor for bleeding, -c/u iron, folic acid, and IM B12 supplement- repeat B12 levels >2000, c/u with monthly injection 5. CArdiac: no hx, medicine consulted to assist in overall management 6. resp: encourage incentive spirometry 7. DVT ppx: TEDs 8. Endo: hypothryoidism- c/u synthroid 8. GI: ppx- omeprazole -needs to f/u with GI for endoscopy for H. Pylori testing and colonoscopy- patient has agreed to see Dr. Mendez -not complaining of RUQ currently, will consult surgery if cholelithiasis becomes symptomatic 9. : monitor PVRs, voiding well 10. Dispo: 12-29-18 to home, progressing towards goals Allergies Coded Allergies: Penicillins (Verified Allergy, Intermediate, hives, 12/05/18) Vital Signs Vital Signs Date Time Temp Pulse Resp B/P (MAP) Pulse Ox O2 Delivery O2 Flow Rate FiO2 12/28/18 08:16 79 108/63 12/27/18 22:00 98.0 17 99 Room Air Current Medications Current Medications Current Medications Medications (Trade) Dose Ordered Sig/David Route PRN Reason Start Time Stop Time Status Last Admin Dose Admin Acetaminophen (Tylenol Tab) 650 mg Q4HP PRN PO MILD PAIN (PS 1-4) 12/23/18 14:30 12/24/18 23:01 Acetaminophen (Tylenol Tab) 1,000 mg TID PO 12/23/18 16:00 12/28/18 08:16 Albuterol Sulfate (Proventil, Ventolin Hfa) 2 puff RQ4H PRN INH SHORTNESS OF BREATH 12/23/18 14:30 Ascorbic Acid (Vitamin C) 500 mg BID PO 12/23/18 21:00 12/28/18 08:15 Calcium Carbonate (Tums) 1,000 mg Q4HP PRN PO HEARTBURN 12/23/18 14:30 Cyanocobalamin (Vitamin B12 Injection) 1,000 mcg DAILY IM 12/24/18 09:00 12/26/18 18:16 DC 12/26/18 07:29 Cyanocobalamin (Vitamin B12 Injection) 1,000 mcg Mo@0900 IM 01/02/19 09:00 Diphenhydramine HCl (Benadryl) 25 mg Q6H PO 12/23/18 18:00 12/23/18 19:15 DC 12/23/18 18:06 Diphenhydramine HCl (Benadryl) 25 mg Q8HP PO 12/24/18 18:00 12/26/18 18:16 DC 12/24/18 23:00 Docusate Sodium (Colace) 100 mg BID PO 12/23/18 21:00 12/28/18 08:16 Enoxaparin Sodium (Lovenox) 40 mg DAILY SC 12/24/18 09:00 12/24/18 12:24 DC 12/24/18 09:03 Ferrous Gluconate (Fergon) 324 mg DAILY PO 12/24/18 09:00 12/28/18 08:16 Folic Acid (Folic Acid) 2 mg DAILY PO 12/23/18 09:00 12/28/18 08:16 Gabapentin (Neurontin) 100 mg TID PO 12/23/18 16:00 12/23/18 19:36 DC 12/23/18 16:25 Haloperidol (Haldol) 0.5 mg BID PO 12/24/18 21:00 12/26/18 18:16 DC 12/26/18 07:31 Haloperidol (Haldol) 1 mg BID PO 12/23/18 21:00 12/24/18 12:24 DC 12/24/18 09:02 Home Med (Med Rec Complete!) ASDIRECTED XX 12/23/18 15:00 12/23/18 15:17 DC Levothyroxine Sodium (Synthroid) 25 mcg DAILY@06 PO 12/24/18 06:00 12/28/18 06:10 Lidocaine (Lidoderm Patch) 1 patch DAILY TD 12/28/18 09:00 12/28/18 10:31 Non-Formulary Medication ( See Comment Field Below ) REMOVE LIDODERM PATCH DAILY@21 XX 12/28/18 21:00 Omeprazole (PriLOSEC) 40 mg DAILY PO 12/24/18 09:00 12/28/18 08:15 Potassium Chloride (Micro-K Extencaps) 40 meq DAILY PO 12/24/18 09:00 12/28/18 08:16 Propranolol HCl (Inderal) 5 mg TID PO 12/24/18 16:00 12/26/18 18:16 DC 12/26/18 16:22 Propranolol HCl (Inderal) 10 mg TID PO 12/26/18 21:00 12/28/18 08:16 Senna (Senokot) 1 tab QHS PO 12/23/18 21:00 12/26/18 21:41 Sertraline HCl (Zoloft) 25 mg BID PO 12/23/18 21:00 12/28/18 08:15 CHRISTOPHER CALVO MD Dec 28, 2018 12:05
[2018-12-28 13:56] VITALS: BP 150/67
[2018-12-28 20:00] VITALS: BP 120/56
[2018-12-28] MEDS ORDERED: MIRALAX *UNIT DOSE* 17GM PACKET PO ONE (20:00)
[2018-12-28] MEDS: SENNA 8.6 MG TAB (SENOKOT) PO SCH (20:08)
[2018-12-28] MEDS ORDERED: **NOTE PATIENT COMMENT** MISC XX SCH (21:00)
[2018-12-29 06:00] VITALS: BP 126/70
[2018-12-29] MEDS: LEVOTHYROXINE 25MCG TABLET (0.025MG) PO SCH (06:18)
[2018-12-29 08:13] LABS: HEMATOCRIT 34.4 % (36.0-47.0); MEAN CORPUSCULAR HEMOGLOBIN 35.3 pg (27.0-33.0); MEAN CORPUSCULAR VOLUME 110.3 fl (80.0-96.0); PLATELET COUNT, AUTOMATED 197 10^3/uL (150-450); RED BLOOD COUNT 3.12 10^6/uL (4.00-5.40); WHITE BLOOD COUNT 3.7 10^3/uL (4.0-10.0)
[2018-12-29] MEDS: LIDOCAINE 5% (LIDODERM) PATCH TD SCH (08:39)
[2018-12-29] MEDS: OMEPRAZOLE 20 MG CAP PO SCH (08:39)
[2018-12-29] MEDS: FOLIC ACID 1 MG TAB PO SCH (08:39)
[2018-12-29] MEDS: PROPRANOLOL 10 MG TAB PO SCH ×2 (08:39→12:11)
[2018-12-29] MEDS: SERTRALINE HCL 25 MG TABLET PO SCH (08:40)
[2018-12-29] MEDS: ASCORBIC ACID 500 MG TAB PO SCH (08:40)
[2018-12-29] MEDS: POTASSIUM CHLORIDE 10 MEQ SR TABLET PO SCH (08:40)
[2018-12-29] MEDS: FERROUS GLUCONATE 324 MG TAB PO SCH (08:40)
[2018-12-29] MEDS: DOCUSATE SODIUM 100 MG CAP PO SCH (08:41)
[2018-12-29] MEDS: ACETAMINOPHEN 500 MG TAB PO SCH (08:41)
[2018-12-29 12:11] VITALS: BP 126/70
[2019-01-02] MEDS ORDERED: CYANOCOBALAMIN 1,000 MCG/ML VIAL (J3420) IM SCH (09:00)
== END 2018-12-29 13:15 | disposition home or self-care (01) | DRG 48 ==
LOC: M PM&R 12:00
PROVIDERS: ADMIT Physical Medicine & Rehabilitation; ATTEND Physical Medicine & Rehabilitation
DX: G70.9 Myoneural disorder, unspecified (principal); D61.818 Other pancytopenia; R26.0 Ataxic gait; M54.40 Lumbago with sciatica, unspecified side; E03.9 Hypothyroidism, unspecified; F32.9 Major depressive disorder, single episode, unspecified; D50.9 Iron deficiency anemia, unspecified; M79.7 Fibromyalgia; D51.0 Vitamin B12 deficiency anemia due to intrinsic factor deficiency; M70.61 Trochanteric bursitis, right hip; G25.0 Essential tremor; R53.1 Weakness; Z79.899 Other long term (current) drug therapy; Z88.0 Allergy status to penicillin; M06.9 Rheumatoid arthritis, unspecified; N92.0 Excessive and frequent menstruation with regular cycle

== ENCOUNTER 2019-01-13 11:38 | Emergency (ER) | payer MEDICAID ==
[~2019-01-13] VITALS: Ht 157.5 cm; Wt 68.2 kg
[~2019-01-13 11:38] MED LIST changes: +FERR32TA PO; +FOLI1TAB11 PO; +KLOR10TA76 PO; +OMEP-218 PO; +PROP10TA56 PO; +SERT25TA21 PO
[2019-01-13 12:54] LABS: BASO % 0.7 % (0.0-1.0); EOS # 0.1 10^3/uL (0.0-0.5); EOS % 1.1 % (0.0-3.0); HEMATOCRIT 39.3 % (36.0-47.0); LYMPH # 1.4 10^3/uL (1.5-5.0); LYMPH % 24.6 % (24.0-44.0); MEAN CORPUSCULAR HEMOGLOBIN 33.9 pg (27.0-33.0); MEAN CORPUSCULAR HGB CONC 33.1 g/dl (32.0-36.5); MEAN CORPUSCULAR VOLUME 102.3 fl (80.0-96.0); MONO # 0.5 10^3/uL (0.0-0.8); MONO % 8.7 % (0.0-5.0); NEUTROPHILS # 3.7 10^3/uL (1.5-8.5); NEUTROPHILS % 64.5 % (36.0-66.0); PLATELET COUNT, AUTOMATED 197 10^3/uL (150-450); RED BLOOD COUNT 3.84 10^6/uL (4.00-5.40); WHITE BLOOD COUNT 5.7 10^3/uL (4.0-10.0)
[2019-01-13 13:15] LABS: BLOOD UREA NITROGEN 9 MG/DL (7-18); CALCIUM LEVEL 9.5 MG/DL (8.5-10.1); CARBON DIOXIDE LEVEL 28 MEQ/L (21-32); CHLORIDE LEVEL 108 MEQ/L (98-107); CREATININE FOR GFR 0.64 MG/DL (0.55-1.30); GLOMERULAR FILTRATION RATE > 60.0 (>58); GLUCOSE, FASTING 85 MG/DL (70-100); POTASSIUM SERUM 4.3 MEQ/L (3.5-5.1); SODIUM LEVEL 141 MEQ/L (136-145)
[2019-01-13 13:32] LABS: VITAMIN B12 LEVEL 610 PG/ML (247-911)
[2019-01-13 15:57] VITALS: BP 124/74
--- NOTE | 2019-01-13 19:12 | ECGEPIP ---
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
== END 2019-01-13 15:58 | disposition home or self-care (01) ==
LOC: M ED 11:38
DX: R20.2 Paresthesia of skin (principal); R00.1 Bradycardia, unspecified; E03.9 Hypothyroidism, unspecified; M54.5 Low back pain; Z87.442 Personal history of urinary calculi; Z88.0 Allergy status to penicillin; Z88.2 Allergy status to sulfonamides; Z88.8 Allergy status to other drugs, medicaments and biological substances; Z79.890 Hormone replacement therapy; Z79.899 Other long term (current) drug therapy